=== PATIENT | female | born 1955 | race Caucasian/White ===

== ENCOUNTER 2016-09-23 11:20 | Observation (INO) | payer OTHER ==
[2016-09-23] MEDS ORDERED: ASPIRIN 81 MG CHEW PO STA (11:48)
[2016-09-23] MEDS ORDERED: NITROGLYCERIN-D5W PMX 50 MG in DEXTROSE/WATER 1 250ML.BAG IV STA (11:48)
[2016-09-23] MEDS ORDERED: NITROGLYCERIN SL TABS 0.4 MG TAB SUBLINGUAL STA (11:48)
--- NOTE | 2016-09-23 11:51 | ED ---
General Adult HPI - General Chief complaint: Chest Pain Stated complaint: chest pain Time Seen by Provider: 09/23/16 11:41 Source: patient, RN notes reviewed Mode of arrival: ambulatory Limitations: no limitations - History of Present Illness Initial comments: Patient is a pleasant 61-year-old female presenting to the emergency department chest discomfort. Onset was yesterday. Discomfort has been steady since that time. Discomfort is currently rated 9/10. Patient has a difficult time describing the type of discomfort. There is radiation to the neck and back. Patient has had similar symptoms a proximal he 4 times previously associated with blockages and stent placement. Patient does have some mild associated dyspnea. No nausea or diaphoresis. Patient did take 2 nitroglycerin this morning at home with transient improvement. - Related Data Home Medications Medication Instructions Recorded Confirmed Fluticasone Propionate [Flonase] 1 spray EA NOSTRIL DAILY PRN 12/25/13 09/23/16 Metoprolol Tartrate [Lopressor] 75 mg PO BID 12/25/13 09/23/16 Oxybutynin Chloride [Ditropan] 5 mg PO BID 12/25/13 09/23/16 Gabapentin [Neurontin] 100 mg PO TID 09/08/15 09/23/16 Omeprazole [PriLOSEC] 20 mg PO DAILY 09/08/15 09/23/16 Ibuprofen [Motrin] 800 mg PO Q6H PRN 03/26/16 09/23/16 Multivitamin/Iron/Folic Acid 1 tab PO DAILY 03/26/16 09/23/16 [Centrum Complete Multivit Tab] Pravastatin Sodium [Pravachol] 40 mg PO SUWEFR 03/26/16 09/23/16 tiZANidine HCL 4 mg PO TID PRN 03/26/16 09/23/16 Desvenlafaxine Succinate [Pristiq] 100 mg PO HS 04/01/16 09/23/16 Losartan Potassium 50 mg PO DAILY 04/01/16 09/23/16 Previous Rx's Medication Instructions Recorded Isosorbide Mononitrate ER [Imdur] 30 mg PO DAILY #30 tab.er.24h 09/11/15 Nitroglycerin Sl Tabs [Nitrostat] 0.4 mg SUBLINGUAL Q5M PRN #25 tab 09/11/15 Furosemide [Lasix] 20 mg PO DAILY #10 tab 03/27/16 Aspirin 81 mg PO BID chew 04/01/16 Allergies Allergy/AdvReac Type Severity Reaction Status Date / Time clopidogrel bisulfate Allergy Rash/Hives Verified 09/23/16 12:08 [From Plavix] atorvastatin calcium AdvReac Severe Verified 09/23/16 12:08 [From Lipitor] muscle pain simvastatin [From Zocor] AdvReac Severe Verified 09/23/16 12:08 muscle pain Review of Systems ROS Statement: Those systems with pertinent positive or pertinent negative responses have been documented in the HPI. ROS Other: All systems not noted in ROS Statement are negative. Constitutional: Denies: fever Eyes: Denies: eye pain ENT: Denies: ear pain Respiratory: Reports: dyspnea. Denies: cough Cardiovascular: Reports: chest pain Endocrine: Denies: fatigue Gastrointestinal: Denies: abdominal pain Genitourinary: Denies: dysuria Musculoskeletal: Reports: back pain Skin: Denies: rash Neurological: Denies: weakness Past Medical History Past Medical History: Coronary Artery Disease (CAD), Heart Failure, COPD, Hyperlipidemia, Hypertension, Myocardial Infarction (MD), Osteoarthritis (OA), Rheumatoid Arthritis (RA) Additional Past Medical History / Comment(s): SEE DR LARIOS'S HISTORY AND PHYSICAL Last Myocardial Infarction Date:: Jul 25 2000 History of Any Multi-Drug Resistant Organisms: None Reported Past Surgical History: AICD, Section, Cholecystectomy, Coronary Bypass/ CABG, Heart Catheterization With Stent Additional Past Surgical History / Comment(s): Multiple stents, carpal tunnel, D &C Past Anesthesia/Blood Transfusion Reactions: No Reported Reaction Date of Last Stent Placement:: UNKNOWN DATE Type of Cardiac Device: AICD Device Placement Date:: 05/2014 Past Psychological History: Anxiety, Depression Smoking Status: Former smoker Past Alcohol Use History: Rare Past Drug Use History: None Reported - Past Family History Mother Family Medical History: Hypertension, Myocardial Infarction (MD) Father Family Medical History: Coronary Artery Disease (CAD), Hypertension, Myocardial Infarction (MD) General Exam Limitations: no limitations General appearance: alert, in no apparent distress Head exam: Present: atraumatic Eye exam: Present: normal appearance, PERRL ENT exam: Present: normal oropharynx Neck exam: Present: normal inspection Respiratory exam: Present: normal lung sounds bilaterally. Absent: chest wall tenderness Cardiovascular Exam: Present: regular rate, normal rhythm Expanded Peripheral pulses: 2+: Radial (R), Radial (L), Posterior Tibialis (R), Posterior Tibialis (L) GI/Abdominal exam: Present: soft. Absent: tenderness Extremities exam: Present: normal inspection. Absent: pedal edema, calf tenderness Back exam: Present: normal inspection Neurological exam: Present: alert Psychiatric exam: Present: normal affect, normal mood Skin exam: Absent: rash Course Vital Signs 09/23/16 09/23/16 11:22 12:18 Pulse Rate 59 L 50 L Respiratory 20 Rate Blood Pressure 144/70 132/74 O2 Sat by Pulse 96 96 Oximetry EKG Findings - EKG Comments: EKG Findings:: Sinus bradycardia at 56. Normal intervals. Left axis. Septal Q waves. No acute ST change. Medical Decision Making - Medical Decision Making Patient reevaluated and resting comfortably in bed. Patient symptoms have improved with nitroglycerin. Patient and family updated on results and plan. Case was discussed in detail with Dr. Napier, who will admit for Dr. Garrett dowling. Admission orders written. Cardiac to consult placed. IV heparin started. - Lab Data Result diagrams: 09/23/16 11:36 09/23/16 11:36 Lab Results 09/23/16 09/23/16 09/23/16 Range/Units 11:36 11:36 11:36 WBC 11.1 H (3.8-10.6) k/uL RBC 5.01 (3.80-5.40) m/uL Hgb 14.8 (11.4-16.0) gm/dL Hct 43.4 (34.0-46.0) % MCV 86.6 (80.0-100.0) fL MCH 29.6 (25.0-35.0) pg MCHC 34.1 (31.0-37.0) g/dL RDW 14.5 (11.5-15.5) % Plt Count 178 (150-450) k/uL Neutrophils % 57 % Lymphocytes % 30 % Monocytes % 6 % Eosinophils % 2 % Basophils % 2 % Neutrophils # 6.4 (1.3-7.7) k/uL Lymphocytes # 3.3 (1.0-4.8) k/uL Monocytes # 0.7 (0-1.0) k/uL Eosinophils # 0.2 (0-0.7) k/uL Basophils # 0.2 (0-0.2) k/uL PT (9.0-12.0) sec INR (<1.1) APTT (22.0-30.0) sec D-Dimer (<0.60) mg/L FEU Sodium 143 (137-145) mmol/L Potassium 4.6 (3.5-5.1) mmol/L Chloride 106 (98-107) mmol/L Carbon Dioxide 26 (22-30) mmol/L Anion Gap 11 mmol/L BUN 22 H (7-17) mg/dL Creatinine 0.88 (0.52-1.04) mg/dL Est GFR (MDRD) Af Amer >60 (>60 ml/min/1.73 sqM) Est GFR (MDRD) Non-Af >60 (>60 ml/min/1.73 sqM) Glucose 93 (74-99) mg/dL Calcium 10.0 (8.4-10.2) mg/dL Magnesium 1.9 (1.6-2.3) mg/dL Total Bilirubin 0.7 (0.2-1.3) mg/dL AST 21 (14-36) U/L ALT 38 (9-52) U/L Alkaline Phosphatase 109 (38-126) U/L Total Creatine Kinase 71 (30-135) U/L CK-MB (CK-2) 1.0 (0.0-2.4) ng/mL CK-MB (CK-2) Rel Index 1.4 Troponin I <0.012 (0.000-0.034) ng/mL Total Protein 7.9 (6.3-8.2) g/dL Albumin 4.6 (3.5-5.0) g/dL 09/23/16 Range/Units 11:36 WBC (3.8-10.6) k/uL RBC (3.80-5.40) m/uL Hgb (11.4-16.0) gm/dL Hct (34.0-46.0) % MCV (80.0-100.0) fL MCH (25.0-35.0) pg MCHC (31.0-37.0) g/dL RDW (11.5-15.5) % Plt Count (150-450) k/uL Neutrophils % % Lymphocytes % % Monocytes % % Eosinophils % % Basophils % % Neutrophils # (1.3-7.7) k/uL Lymphocytes # (1.0-4.8) k/uL Monocytes # (0-1.0) k/uL Eosinophils # (0-0.7) k/uL Basophils # (0-0.2) k/uL PT 10.1 (9.0-12.0) sec INR 1.0 (<1.1) APTT 22.5 (22.0-30.0) sec D-Dimer 0.44 (<0.60) mg/L FEU Sodium (137-145) mmol/L Potassium (3.5-5.1) mmol/L Chloride (98-107) mmol/L Carbon Dioxide (22-30) mmol/L Anion Gap mmol/L BUN (7-17) mg/dL Creatinine (0.52-1.04) mg/dL Est GFR (MDRD) Af Amer (>60 ml/min/1.73 sqM) Est GFR (MDRD) Non-Af (>60 ml/min/1.73 sqM) Glucose (74-99) mg/dL Calcium (8.4-10.2) mg/dL Magnesium (1.6-2.3) mg/dL Total Bilirubin (0.2-1.3) mg/dL AST (14-36) U/L ALT (9-52) U/L Alkaline Phosphatase (38-126) U/L Total Creatine Kinase (30-135) U/L CK-MB (CK-2) (0.0-2.4) ng/mL CK-MB (CK-2) Rel Index Troponin I (0.000-0.034) ng/mL Total Protein (6.3-8.2) g/dL Albumin (3.5-5.0) g/dL - Radiology Data Radiology results: image reviewed (Chest x-ray shows cardiomegaly without acute process.) Critical Care Time Critical Care Time: Yes Total Critical Care Time: 31 Disposition Clinical Impression: Unstable angina pectoris Disposition: [facility] Time of Disposition: 14:04
[2016-09-23 12:14] LABS: Basophils # (A) 0.2 k/uL (0-0.2); Basophils % (A) 2 %; CH 29.8; CHCM 34.6; Eosinophils # (A) 0.2 k/uL (0-0.7); Eosinophils % (A) 2 %; HCT 43.4 % (34.0-46.0); HDW 2.98; HGB 14.8 gm/dL (11.4-16.0); Luc # (Auto) 0.37; Luc % (Auto) 3; Lymphocytes # (A) 3.3 k/uL (1.0-4.8); Lymphocytes % (A) 30 %; MCH 29.6 pg (25.0-35.0); MCHC 34.1 g/dL (31.0-37.0); MCV 86.6 fL (80.0-100.0); Mean Platelet Volume 9.2; Monocytes # (A) 0.7 k/uL (0-1.0); Monocytes % (A) 6 %; Neutrophils # (A) 6.4 k/uL (1.3-7.7); Neutrophils % (A) 57 %; RBC 5.01 m/uL (3.80-5.40); RDW 14.5 % (11.5-15.5); WBC 11.1 k/uL (3.8-10.6); WBC (Perox) 11.17
[2016-09-23 12:23] LABS: Prothrombin Time 10.1 sec (9.0-12.0)
[2016-09-23 12:30] LABS: ALT 38 U/L (9-52); AST 21 U/L (14-36); Alkaline Phosphatase 109 U/L (38-126); Anion Gap 11 mmol/L; Blood Urea Nitrogen 22 mg/dL (7-17); Carbon Dioxide 26 mmol/L (22-30); Chloride 106 mmol/L (98-107); Glucose 93 mg/dL (74-99); Magnesium 1.9 mg/dL (1.6-2.3); Non-African American GFR(MDRD) >60 (>60 ml/min/1.73 sqM); Potassium 4.6 mmol/L (3.5-5.1); Sodium 143 mmol/L (137-145); Total Bilirubin 0.7 mg/dL (0.2-1.3); Total Protein 7.9 g/dL (6.3-8.2)
[2016-09-23 12:33] LABS: Creatine Kinase 71 U/L (30-135)
[2016-09-23 12:36] LABS: Partial Thromboplastin Time 22.5 sec (22.0-30.0)
[2016-09-23 12:46] LABS: Troponin I <0.012 ng/mL (0.000-0.034)
--- NOTE | 2016-09-23 12:59 | XR ---
EXAMINATION TYPE: XR chest 1V portable DATE OF EXAM: 09/23/2016 12:36 PM COMPARISON: Prior chest x-ray March 31, 2016. HISTORY: Chest pain into left arm with shortness of breath today. TECHNIQUE: Single frontal view of the chest is obtained. FINDINGS: Post CABG changes with eccentric clips and sternal wires is redemonstrated. There is no foc al air space opacity, pleural effusion, or pneumothorax seen. The cardiac silhouette size remains en larged with dual lead pacemaker/AICD. The osseous structures are intact. IMPRESSION: Cardiomegaly without acute pulmonary process.
[2016-09-23] MEDS ORDERED: HEPARIN SODIUM,PORCINE 5,000 UNIT/ML 1 ML VIAL IV ONE (14:05)
[2016-09-23] MEDS ORDERED: HEPARIN SODIUM,PORCINE 5,000 UNIT/ML 1 ML VIAL IV PRN (14:05)
[2016-09-23] MEDS ORDERED: HEPARIN SODIUM,PORCINE/D5W PMX 25,000 UNIT in DEXTROSE/WATER 1 500ML.BAG IV SCH (14:15)
[2016-09-23] MEDS: HYDROcodone/APAP 5-325MG 1 EACH TAB PO PRN ×2 (16:52→21:58)
[2016-09-23] MEDS ORDERED: IBUPROFEN 800 MG TAB PO PRN (17:27)
[2016-09-23] MEDS ORDERED: FLUTICASONE 50MCG/SPRAY NASAL 16GM EA NOSTRIL PRN (17:27)
[2016-09-23] MEDS ORDERED: tiZANidine 4 MG TAB PO PRN (17:27)
[2016-09-23 18:49] LABS: Creatine Kinase 58 U/L (30-135)
[2016-09-23 19:02] LABS: Creatine Kinase MB 0.7 ng/mL (0.0-2.4); Troponin I <0.012 ng/mL (0.000-0.034)
[2016-09-23] MEDS ORDERED: ALPRAZolam 0.25 MG TAB PO PRN (21:00)
[2016-09-23] MEDS ORDERED: TEMAZEPAM 15 MG CAP PO PRN (21:00)
[2016-09-23] MEDS: ASPIRIN 81 MG CHEW PO SCH (21:48)
[2016-09-23] MEDS: DESVENLAFAXINE SUCCINATE 50 MG TAB.ER.24H PO SCH (21:49)
[2016-09-23] MEDS: METOPROLOL TARTRATE 50 MG TAB PO SCH (21:49)
[2016-09-23] MEDS: OXYBUTYNIN CHLORIDE 5 MG TAB PO SCH (21:50)
[2016-09-23] MEDS: GABAPENTIN 100 MG CAP PO SCH (21:50)
[2016-09-23] MEDS ORDERED: HYDROmorphone 1 MG/ML 1 ML SYRINGE IVP STA (23:03)
[2016-09-24 01:14] LABS: Creatine Kinase 51 U/L (30-135)
[2016-09-24 01:29] LABS: Creatine Kinase MB 0.7 ng/mL (0.0-2.4); Troponin I <0.012 ng/mL (0.000-0.034)
[2016-09-24 06:16] LABS: Basophils # (A) 0.2 k/uL (0-0.2); Basophils % (A) 3 %; CH 29.4; CHCM 33.1; Eosinophils # (A) 0.3 k/uL (0-0.7); Eosinophils % (A) 3 %; HCT 42.3 % (34.0-46.0); HDW 2.87; HGB 13.9 gm/dL (11.4-16.0); Luc # (Auto) 0.27; Luc % (Auto) 3; Lymphocytes # (A) 2.8 k/uL (1.0-4.8); Lymphocytes % (A) 34 %; MCH 29.4 pg (25.0-35.0); MCHC 32.8 g/dL (31.0-37.0); MCV 89.5 fL (80.0-100.0); Mean Platelet Volume 9.1; Monocytes # (A) 0.4 k/uL (0-1.0); Monocytes % (A) 5 %; Neutrophils # (A) 4.3 k/uL (1.3-7.7); Neutrophils % (A) 52 %; RBC 4.73 m/uL (3.80-5.40); RDW 14.6 % (11.5-15.5); WBC 8.2 k/uL (3.8-10.6); WBC (Perox) 8.28
[2016-09-24 06:39] LABS: Anion Gap 10 mmol/L; Blood Urea Nitrogen 21 mg/dL (7-17); Calcium 9.5 mg/dL (8.4-10.2); Carbon Dioxide 25 mmol/L (22-30); Chloride 106 mmol/L (98-107); Cholesterol 233 mg/dL (<200); Glucose 110 mg/dL (74-99); HDL Cholesterol 60 mg/dL (40-60); Non-African American GFR(MDRD) 57 (>60 ml/min/1.73 sqM); Potassium 4.3 mmol/L (3.5-5.1); Sodium 141 mmol/L (137-145); Triglycerides 248 mg/dL (<150)
[2016-09-24] MEDS: PANTOPRAZOLE 40 MG TABLET PO SCH (07:04)
[2016-09-24] MEDS ORDERED: ALPRAZolam 0.25 MG TAB PO PRN (07:56)
[2016-09-24] MEDS ORDERED: ALPRAZolam 0.5 MG TAB PO PRN (07:56)
[2016-09-24] MEDS ORDERED: NITROGLYCERIN SL TABS 0.4 MG TAB SUBLINGUAL PRN (07:56)
[2016-09-24] MEDS ORDERED: ASPIRIN 325 MG TAB PO STA (07:56)
[2016-09-24] MEDS ORDERED: SODIUM CHLORIDE 0.9% 1,000 ML in EMPTY BAG 1 BAG IV ONE (07:56)
[2016-09-24] MEDS ORDERED: ASPIRIN 81 MG CHEW PO STA (08:06)
--- NOTE | 2016-09-24 08:27 | CONS ---
DATE OF CONSULTATION: CHIEF COMPLAINT: Chest pain, Dodie is a 61-year-old lady with history of coronary artery disease, status post CABG, status post occluded graft and prior angioplasty of the [place] circumflex coronary artery unsuccessfully and angioplasty with stent placement of right coronary artery almost a year ago. She comes in complaining of chest pain that she describes as a chest pressure that radiates to her back that started on Friday, gradually got worse yesterday and hence, she came in. It is moderate to severe intensity pain, came on at rest, was associated with some diaphoresis. It is very similar to the episodes of chest pain that she had in the past. Since admission she had been treated with nitrates, heparin, aspirin with improvement in her symptoms. Three sets of cardiac enzymes are negative. EKG does not reveal acute ischemic changes. Past medical history is significant for coronary artery disease, status post CABG, hypertension, dyslipidemia. Current medications include Lopressor 75 b.i.d. losartan 50 mg q. daily, Imdur 30 q. daily, Neurontin, Motrin, Lasix, Flonase, aspirin, Pravachol, Ditropan and Pristiq. The patient is allergic to PLAVIX, LIPITOR and ZOCOR. Family history is negative for premature coronary artery disease. Social history denies smoking, EtOH use or drug abuse. REVIEW OF SYSTEMS: HEENT: Unremarkable. CARDIAC: As described above. RESPIRATORY: Negative. GI: Negative. GENITOURINARY: Negative. ALLERGY/IMMUNOLOGY: Negative. MUSCULOSKELETAL: Negative. ENDOCRINE: Negative. DERMATOLOGY: Negative. CONSTITUTIONAL: Negative. ONCOLOGICAL: Negative. The rest of the system review is not relevant. On exam, she is comfortable at rest. Afebrile. Vital signs are stable. There is no jugular venous distention. Carotid upstroke is normal. There is no bruit. Chest exam reveals good air entry bilaterally. Heart exam reveals first and second heart sounds. No gallop. No murmur, no rub. Abdomen is soft, nontender. Exam of extremities did not reveal edema. Peripheral pulses are felt. Labs show that the potassium is 4.3. Creatinine is one. Hemoglobin is normal at 13.9. Platelet count is 151. D-dimer is 0.44. Four sets of tropes are negative. LDL cholesterol is elevated at 123. ASSESSMENT: 1. Unstable angina in a patient with known coronary artery disease, status post coronary artery bypass graft. 2. Ischemic cardiomyopathy, status post AICD. 3. Hypertension. PLAN: I advised the patient to undergo cardiac catheterization to evaluate her coronary anatomy. The patient had multiple angioplasties of right coronary artery, the most recent was in September 2015. LAD was previously stented and the stent was patent. Circumflex coronary artery has chronic 95% lesion that we could not ( ) stent back in 2013. The patient understands risks, benefits, and alternatives.
[2016-09-24] MEDS: FUROSEMIDE 20 MG TAB PO SCH (08:29)
[2016-09-24] MEDS: METOPROLOL TARTRATE 50 MG TAB PO SCH ×2 (08:33→21:01)
[2016-09-24] MEDS: GABAPENTIN 100 MG CAP PO SCH ×3 (08:34→21:01)
[2016-09-24] MEDS: LOSARTAN 50 MG TAB PO SCH (08:34)
[2016-09-24] MEDS: OXYBUTYNIN CHLORIDE 5 MG TAB PO SCH ×2 (08:34→21:02)
[2016-09-24] MEDS: HYDROcodone/APAP 5-325MG 1 EACH TAB PO PRN ×3 (08:40→21:03)
[2016-09-24] MEDS ORDERED: ASPIRIN 325 MG TAB PO SCH (09:00)
[2016-09-24] MEDS ORDERED: ISOSORBIDE MONONITRATE ER 30 MG TAB.ER.24H PO SCH (09:00)
[2016-09-24] MEDS ORDERED: MIDAZOLAM 2 MG/2 ML VIAL ONE (10:15)
[2016-09-24] MEDS ORDERED: LIDOCAINE 2% INJ 20 MG/ML (20 ML MDV) ONE (10:15)
[2016-09-24] MEDS ORDERED: MIDAZOLAM 2 MG/2 ML VIAL IVP ONE (10:25)
[2016-09-24] MEDS ORDERED: LIDOCAINE 2% INJ 20 MG/ML SQ ONE (10:29)
[2016-09-24] MEDS ORDERED: SODIUM CHLORIDE 0.9% 1,000 ML IV ONE (10:42)
[2016-09-24] MEDS ORDERED: IOHEXOL 350 MG/ML 100 ML BOTTLE INJ ONE (10:44)
[2016-09-24] MEDS ORDERED: RX INFO: IV CONTRAST WAS GIVEN 1 EACH MISC MISCELLANE PRN (10:49)
--- NOTE | 2016-09-24 11:20 | CC ---
INDICATION: Unstable angina. PROCEDURE NOTE: After obtaining informed consent, left heart catheterization and coronary angiogram were performed via the right femoral artery using standard Cris catheters. Patient tolerated the procedure well without any obvious immediate complications. A femoral angiogram was performed and Angio-Seal was deployed for hemostasis. The patient has known multivessel coronary artery disease and had 2-vessel bypass surgery. Her bypass grafts have closed down many years ago and she has had multiple angioplasties of LAD, circ and right coronary artery. Most recently a year ago, she had angioplasty of the proximal right coronary artery. She has a chronic 95% stenosis that we could not stent in the past. LAD had been stented and appeared patent a year ago. FINDINGS: 1. Hemodynamics: Left ventricular end-diastolic pressure is 12 to 14 mm. There is no significant gradient across the aortic valve. 2. Left ventriculogram: Left ventriculogram was not performed. 3. Angiographic data: a. Left main coronary artery: Left main coronary artery is a short vessel that is free of stenosis, appears calcified, divides into left anterior descending coronary artery and circumflex coronary artery. Circumflex coronary artery has a focal 95% stenosis, which we could not wire or angioplasty in the past. LAD had been stented in the proximal to midportion and the stent appears patent. Right coronary artery is a large dominant vessel that was stented in the proximal to midportion and then in the distal part. Right in the mid RCA, there is a focal area of stenosis, probably that was the site where the venous graft was attached, and that appears the same as it did at the end of the procedure last time. The stents in the proximal to mid and in the distal RCA appear patent. PDA and PLV vessels are normal. CONCLUSIONS: 1. [place] 3-vessel coronary artery disease, occluded grafts based on a prior cardiac catheterization data. 2. Patent stents within the left anterior descending artery and right coronary artery, chronic severe occlusion of the proximal circumflex coronary artery that we could not stent in the past. PLAN: Patient will be treated with optimal medical therapy.
--- NOTE | 2016-09-24 12:21 | HP ---
DATE OF ADMISSION: CHIEF COMPLAINT: Chest pain. HISTORY OF PRESENT ILLNESS: This 61-year-old woman with a past medical history of coronary artery disease, history of CHF, COPD, GERD, hypertension, hyperlipidemia, myocardial infarction, rheumatoid arthritis, sleep apnea, history of AICD, history of CAD, CABG, stent being followed by Dr. Guthrie in the outpatient setting was complaining of chest pain, which was on going for the last 2 days. The onset of the pain was yesterday and the patient initially had a back pain and subsequently radiated to the front of the chest and the pain was also radiating to the neck and back and left arm also. The patient had multiple episodes of chest pain previously with pacemaker and stent placements also. The patient also had history of TIA also. Because of multiple complex medical issues, patient came to [facility] and admitted for further evaluation and treatment. There is no history of any fever, rigors or chills. No history of headache, loss of consciousness or seizures. PAST MEDICAL HISTORY: History of CAD, CABG, stent, history of COPD, GERD, hyperlipidemia, hypertension, myocardial infarction , rheumatoid arthritis, sleep apnea, murmur with AICD, history of CAD, CABG, anxiety depression not otherwise specified. Medications prior to admission include home mediations are: 1. Pristiq 100 mg p.o. q.h.s. 2. Tizanidine 4 mg t.i.d. p.r.n. 3. Pravachol 40 mg on Friday, Friday, Friday. 4. Ditropan 5 mg p.o. b.i.d. 5. Prilosec 20 mg daily. 6. Nitrostat 0.4 sublingual p.r.n. 7. Multivitamins 1 p.o. daily. 8. Lopressor 75 mg p.o. b.i.d. 9. Losartan 50 mg p.o. daily. 10. Imdur 30 mg p.o. daily. 11. Motrin 800 mg q.6 p.r.n. 12. Neurontin 100 mg p.o. t.i.d. 13. Lasix 20 mg p.o. daily. 14. Flonase one spray daily p.r.n. 15. Aspirin 81 mg p.o. b.i.d. Allergies are PLAVIX, LIPITOR, ZOCOR. FAMILY HISTORY: History of CAD, hypertension, myocardial infarction . SOCIAL HISTORY: Previous history of smoking. Occasional alcohol intake. REVIEW OF SYSTEMS: ENT: No diminished hearing. No diminished vision. CARDIOVASCULAR SYSTEM: As mentioned earlier. RESPIRATORY: As mentioned earlier. GI: No nausea. : No dysuria. NERVOUS SYSTEM: No numbness or weakness. ALLERGY/IMMUNOLOGY: No history of asthma or hayfever. MUSCULOSKELETAL: As mentioned earlier. HEMATOLOGY/ONCOLOGY: No history of anemia. ENDOCRINE: As mentioned earlier. CONSTITUTIONAL: As mentioned earlier. DERMATOLOGY: Negative. RHEUMATOLOGY: As mentioned earlier. PSYCHIATRY: As mentioned earlier. PHYSICAL EXAMINATION: The patient is alert and oriented x3. Pulse is 61, blood pressure 127/67, respirations 16, temperature 97.8, pulse ox 94% on room air. HEENT: Conjunctivae normal. Oral mucosa moist. NECK: No jugular venous distention. No carotid bruit. No lymph node enlargement. CARDIOVASCULAR: S1 and S2, muffled. No S3, no S4. RESPIRATORY: Breath sounds diminished at the bases. No rhonchi, no crackles. ABDOMEN: Soft, obese, nontender. No mass palpable. LEGS: No edema, no swelling. NERVOUS SYSTEM: Higher function as mentioned. Moves all 4 limbs. No focal motor or sensory deficits. LYMPHATICS: No lymphadenopathy of neck, axillae or groin. SKIN: No ulcers, rashes or bleeding. LABS: WBC 11.1. BUN is 22. Otherwise, chest x-ray shows cardiomegaly without any acute pulmonary process. EKG personally reviewed showed sinus bradycardia and ST-T changes and old septal infarct. ASSESSMENT: 1. Chest pain, possible unstable angina. 2. Increased WBC. 3. Rule out acute coronary syndrome. 4. History of coronary artery disease, coronary artery bypass grafting and stent. 5. History of congestive heart failure. 6. History of chronic obstructive pulmonary disease. 7. Gastroesophageal reflux disease. 8. Hypertension, essential. 9. Hyperlipidemia. 10. History of myocardial infarction. 11. History of degenerative joint disease. 12. History of rheumatoid arthritis. 13. History of sleep apnea. 14. History of back pain, degenerative joint disease. 15. History of automatic implantable cardioverter defibrillator. 16. History of multiple cardiac stents. 17. Anxiety, depression, not otherwise specified. 18. Remote history nicotine dependence. 19. FULL CODE. 20. Obesity with body mass index of 43.1. RECOMMENDATIONS AND DISCUSSION: This 61-year-old woman who presented with multiple complex medical issues, we will monitor the patient closely, rule out myocardial infarction. Cardiology consultation. Heparin drip. Otherwise beta blockers, Ecotrin. Resume the rest of the home medications. Repeat labs. Monitor PTT closely. N.p.o. past midnight until seen by Cardiology. Guarded prognosis because of multiple complex medical issues. Further recommendations to follow. A copy of dictation forwarded to Dr. Guthrie who is the primary physician. I will also check a UA with micro as well.
[2016-09-24] MEDS: MULTIVITAMINS, THERA 1 EACH TAB PO SCH (16:20)
[2016-09-24] MEDS: RANOLAZINE 500 MG TAB.ER.12H PO SCH ×2 (16:21→21:01)
--- NOTE | 2016-09-24 17:04 | PN ---
DATE OF SERVICE: 09/24/2016 PRESENTING COMPLAINT: Chest pain. INTERVAL HISTORY: This is a patient admitted with chest pain, underwent a cardiac catheterization by Dr. Damari Doty and found to have diffuse disease. This is ( ) to go with cardiac catheterization. Postprocedure patient is lying in bed tired-appearing. Review of systems done for constitutional, cardiovascular, GI, pulmonary; relevant findings as above. Current medications are reviewed. On examination, temperature 97.1, pulse 63, respiratory rate 16, blood pressure 122/66, pulse ox 93% on room air. GENERAL APPEARANCE: Lying in bed, flat, not in distress. EYES: Pupils equal. Conjunctivae normal. NECK: Short, thick, unable to assess JVD. RESPIRATORY: Effort normal. LUNGS: Distant breath sounds. CARDIOVASCULAR: First and second sounds normal. No edema. ABDOMEN: Soft, nontender. Liver and spleen not palpable. Psychiatric: Alert and oriented x3. Mood and affect normal. INVESTIGATIONS: White count 8.2, hemoglobin 13.9. Potassium 4.3. LDL 123. ASSESSMENT: 1. Coronary artery disease diffuse per cardiac catheterization for medical management with presentation of unstable angina. 2. Gastroesophageal reflux disease. 3. Hyperlipidemia. 4. Essential hypertension. 5. Primary osteoarthritis of multiple joints, bilateral. 6. Obstructive sleep apnea, uses CPAP. 7. Primary osteoarthritis of multiple joints, bilateral. 8. AICD in place. 9. Morbid obesity, body mass index 42.6. 10. Chronic urinary stress incontinence, the patient on Diprivan. 11. Depression, not otherwise specified. PLAN: At the present time, continue with current medication and treatment plan. Care was discussed with the patient. Will DC patient's Motrin given history of coronary artery disease. Follow up with cardiology.
[2016-09-24] MEDS: SODIUM CHLORIDE 0.9% 1,000 ML IV SCH (17:45)
[2016-09-24] MEDS: DESVENLAFAXINE SUCCINATE 50 MG TAB.ER.24H PO SCH (21:01)
[2016-09-24] MEDS: ASPIRIN 81 MG CHEW PO SCH (21:02)
[2016-09-24] MEDS ORDERED: BISACODYL 5 MG TABLET.DR PO PRN (21:16)
[2016-09-24 21:23] VITALS: RESP 18
[2016-09-25] MEDS: SODIUM CHLORIDE 0.9% 1,000 ML IV SCH ×2 (06:20→12:48)
[2016-09-25] MEDS: PANTOPRAZOLE 40 MG TABLET PO SCH (06:20)
[2016-09-25 06:34] LABS: Anion Gap 9 mmol/L; Blood Urea Nitrogen 21 mg/dL (7-17); Calcium 9.8 mg/dL (8.4-10.2); Carbon Dioxide 29 mmol/L (22-30); Chloride 103 mmol/L (98-107); Glucose 99 mg/dL (74-99); Non-African American GFR(MDRD) 56 (>60 ml/min/1.73 sqM); Potassium 4.7 mmol/L (3.5-5.1); Sodium 141 mmol/L (137-145)
[2016-09-25 07:04] LABS: Basophils # (A) 0.1 k/uL (0-0.2); Basophils % (A) 1 %; CH 29.7; Eosinophils # (A) 0.2 k/uL (0-0.7); Eosinophils % (A) 3 %; HCT 41.1 % (34.0-46.0); HDW 2.87; Luc # (Auto) 0.19; Luc % (Auto) 3; Lymphocytes # (A) 1.8 k/uL (1.0-4.8); Lymphocytes % (A) 25 %; MCH 29.9 pg (25.0-35.0); MCHC 34.1 g/dL (31.0-37.0); MCV 87.6 fL (80.0-100.0); Monocytes # (A) 0.4 k/uL (0-1.0); Monocytes % (A) 5 %; Neutrophils # (A) 4.4 k/uL (1.3-7.7); Neutrophils % (A) 63 %; RDW 14.6 % (11.5-15.5); WBC (Perox) 7.11
[2016-09-25] MEDS: GABAPENTIN 100 MG CAP PO SCH (08:50)
[2016-09-25] MEDS: ASPIRIN 81 MG CHEW PO SCH (08:50)
[2016-09-25] MEDS: OXYBUTYNIN CHLORIDE 5 MG TAB PO SCH (08:50)
[2016-09-25] MEDS: METOPROLOL TARTRATE 50 MG TAB PO SCH (08:50)
[2016-09-25] MEDS: LOSARTAN 50 MG TAB PO SCH (08:51)
[2016-09-25] MEDS: RANOLAZINE 500 MG TAB.ER.12H PO SCH (08:51)
[2016-09-25] MEDS: FUROSEMIDE 20 MG TAB PO SCH (08:51)
[2016-09-25] MEDS ORDERED: EZETIMIBE 10 MG TAB PO SCH (09:00)
[2016-09-25 10:39] VITALS: TEMP 97.4
--- NOTE | 2016-09-25 10:48 | P.PN ---
Subjective Principal diagnosis: Chest pain This is a pleasant 61-year-old female with known history of coronary artery disease and prior bypass surgery, hypertension, hyperlipidemia, who presented to the hospital with symptoms of chest discomfort with associated diaphoresis. Troponins negative 3. She underwent a cardiac catheterization yesterday which revealed [place] 3 vessel coronary artery disease with occluded grafts based on prior cardiac catheterization data. Patent stents within the LAD and right coronary artery, with chronic severe occlusion of the proximal circumflex which was not amenable to stenting in the past. Recommendation was to continue maximal medical therapy. Patient was seen and examined this morning , denies any chest pain or difficulty in breathing. Patient does have an ALLERGY to statins, we will start her on Zetia. Lipid panel cholesterol 233, triglycerides 248, LDL 123, HDL 60. At the time of my examination this morning , patient denies any chest pain or difficulty in breathing. Blood pressure 142/ 70 with a heart rate in the 70s. Objective - Vital Signs Vital signs: Vital Signs Temp 97.4 F L 09/25/16 08:00 Pulse 71 09/25/16 08:00 Resp 18 09/25/16 04:00 BP 142/77 09/25/16 08:00 Pulse Ox 94 L 09/25/16 08:00 Intake & Output 09/24/16 09/25/16 09/25/16 18:59 06:59 18:59 Intake Total 280 600 236 Output Total 980 Balance -700 600 236 Weight 119.7 kg 119.9 kg Intake: IV 100 600 0.9NS 75cc/hr 600 Oral 180 236 Output: Urine 980 Other: Voiding Method Toilet Toilet # Voids 2 - Exam PHYSICAL EXAMINATION: HEENT: Head is atraumatic, normocephalic. Pupils equal, round. Neck is supple. There is no elevated jugular venous pressure. HEART EXAMINATION: Heart S1, S2 normal. No murmur or gallop heard. CHEST EXAMINATION: Lungs are clear to auscultation and precussion. No chest wall tenderness is noted on palpation or with deep breathing. ABDOMEN: Soft, nontender. Bowel sounds are heard. No organomegaly noted. Right groin soft, no evidence of any hematoma. EXTREMITIES: 2+ peripheral pulses with no evidence of peripheral edema and no calf tenderness noted. NEUROLOGIC patient is awake, alert and oriented -3. . - Labs CBC & Chem 7: 09/25/16 05:26 09/25/16 05:26 Labs: Abnormal Lab Results - Last 24 Hours (Table) 09/25/16 09/25/16 Range/Units 05:26 05:26 Plt Count 130 L (150-450) k/uL BUN 21 H (7-17) mg/dL Assessment and Plan (1) Chest pain Status: Acute (2) CAD (coronary artery disease) Status: Acute (3) S/P cardiac cath Status: Acute (4) HTN (hypertension) Status: Acute (5) Hx of CABG Status: Acute (6) Hyperlipemia Status: Acute Plan: Cardiology's perspective, patient may be able to be discharged home today once cleared by primary doctor. Follow-up appointment will be made with Dr. Doty in the office post discharge. We will start the patient on Zetia 10 mg daily. DNP note has been reviewed, I agree with a documented findings and plan of care. Patient was seen and examined.
[2016-09-25] MEDS: MULTIVITAMINS, THERA 1 EACH TAB PO SCH (12:47)
[2016-09-25 14:19] VITALS: BP 141/85; PULSE 67
[2016-09-25] MEDS ORDERED: PRAVASTATIN SODIUM 40 MG TAB PO SCH (21:00)
--- NOTE | 2016-09-26 11:52 | DS ---
DATE OF ADMISSION: 09/23/2016 DATE OF DISCHARGE: 09/25/2016 FINAL DIAGNOSES: 1. Unstable angina in a patient with known coronary artery disease. 2. Gastroesophageal reflux disease. 3. Hyperlipidemia. 4. Essential hypertension. 5. Primary osteoarthritis of multiple joints, bilateral. 6. Obstructive sleep apnea, uses CPAP. 7. Primary osteoarthritis of multiple joints, bilateral. 8. AICD. 9. Moderate obesity, body mass index of 42.6. 10. Chronic urinary stress incontinence, patient is on medications. 11. Depression, not otherwise specified. HOSPITAL COURSE: This patient with known coronary disease presented with chest pain. Cardiac catheterization showed diffuse disease, seen by Dr. Damari Doty, decided to do medical management. Patient's troponins have been negative. Patient's LDL did come back as 123. On examination, lungs are clear. CARDIOVASCULAR: First and second sounds are normal. Some medications were adjusted. DISCHARGE MEDICATIONS: 1. Flonase one spray each nostril daily p.r.n. 2. Lopressor 75 p.o. b.i.d. 3. Ditropan 5 mg p.o. b.i.d. 4. Neurontin 100 mg p.o. t.i.d. 5. Prilosec 20 mg p.o. daily. 6. Imdur ER 30 mg daily. 7. Nitrostat 0.4 sublingual q.5 p.r.n. 8. Centrum complete multivitamin 1 tablet p.o. daily. 9. Pravachol 40 mg p.o. Friday, Friday, Friday. 10. Tizanidine 4 mg p.o. t.i.d. p.r.n. 11. Lasix 20 mg p.o. daily. 12. Aspirin 81 mg b.i.d. 13. Pristiq 100 mg p.o. q.h.s. 14. Losartan 50 mg p.o. daily. 15. Ranexa 500 mg p.o. q.12. 16. Zetia 10 mg p.o. daily. Follow up with Dr. Guthrie on 09/27/2016; follow up with Dr. Damari Doty on 10/07/2016.
== END 2016-09-25 15:45 | disposition home or self-care (01) ==
LOC: EC 11:20 → INTOOBSV 14:05 → 3OBS 14:05 → UNDOADMOB 14:05 → 6SEL 14:05 → 3OBS 14:19 → 6SEL 16:07
PROVIDERS: ADMIT Hospitalist; ATTEND Hospitalist
DX: I25.110 Atherosclerotic heart disease of native coronary artery with unstable angina pectoris (principal); T82.858A Stenosis of other vascular prosthetic devices, implants and grafts, initial encounter; K21.9 Gastro-esophageal reflux disease without esophagitis; E78.5 Hyperlipidemia, unspecified; I11.0 Hypertensive heart disease with heart failure; I50.9 Heart failure, unspecified; M19.91 Primary osteoarthritis, unspecified site; G47.33 Obstructive sleep apnea (adult) (pediatric); Z99.89 Dependence on other enabling machines and devices; Z95.810 Presence of automatic (implantable) cardiac defibrillator; E66.9 Obesity, unspecified; Z68.41 Body mass index [BMI] 40.0-44.9, adult; N39.3 Stress incontinence (female) (male); F32.9 Major depressive disorder, single episode, unspecified; I25.5 Ischemic cardiomyopathy; I25.2 Old myocardial infarction; Z79.899 Other long term (current) drug therapy; Z88.8 Allergy status to other drugs, medicaments and biological substances; J44.9 Chronic obstructive pulmonary disease, unspecified; M06.9 Rheumatoid arthritis, unspecified; Z95.5 Presence of coronary angioplasty implant and graft; Z95.1 Presence of aortocoronary bypass graft; Z87.891 Personal history of nicotine dependence; F41.9 Anxiety disorder, unspecified; Z82.49 Family history of ischemic heart disease and other diseases of the circulatory system; Z86.73 Personal history of transient ischemic attack (TIA), and cerebral infarction without residual deficits; Z79.82 Long term (current) use of aspirin; D72.829 Elevated white blood cell count, unspecified
CPT/HCPCS: 99291; 96365; 96366 ×3; 96376; 96368; 36415; 93005; 93459; 85379; 80061; 80053; 80048 ×2; 82550 ×2; 82553 ×2; 83735; 84484 ×2; 85025 ×3; 85610; 85730 ×2; 71010; G0378 ×3; C1760; C1894; C1769; J2001; J2250; J1644 ×2; Q9967; J1170; 96375

== ENCOUNTER → 2016-11-28 | Outpatient (CLI) | payer OTHER ==
--- NOTE | 2016-11-28 11:48 | PN ---
DATE OF SERVICE: 11/28/2016 A 61-year-old lady who has been followed in the sleep center for treatment of extremely severe obstructive sleep apnea/hypopnea syndrome. Patient continues successfully using her BiPAP equipment. I checked her BiPAP unit today. BiPAP pressure is 21/17 cm of water. Patient using it 21 over 30 nights for more than 4 hours. Total usage is 21 out of 30 nights. Leak is borderline 16 L per minute. Apnea-hypopnea index is only 1.7. [place] Sleepiness Scale is 9. MEDICATIONS: Cozaar, Prilosec, Lopressor, Ditropan, Imdur, Pravachol, aspirin, Neurontin, tramadol. PHYSICAL EXAMINATION: During physical exam, the patient in no distress. VITAL SIGNS: BP 117/63, HR 66, RR 16. Height 5 feet 5 inches. Weight 264. BMI 43.9. Temperature 97.4. Oxygen saturation at room air 95%. HEENT: PERRLA, EOMI, Evaluation of the oropharynx showed extremely low position of soft palate. NECK: Supple. No JVD, Thyroid is not palpable. LUNGS: Clear to percussion and to auscultation. Good air exchange. No wheezing or rhonchi. HEART: S1, S2 regular. No murmurs, gallops, or rubs. ABDOMEN: Obese. HOUSING SPECIALIST: Awake, alert, and oriented x3. Cranial nerves 2 to 7 intact. There is no fasciculation or atrophy noted. No focal deficits observed. IMPRESSION: 1. Extremely severe obstructive sleep apnea/hypopnea syndrome. Apnea-hypopnea index 96.3 on control with BiPAP at the pressure 21/17. Patient demonstrated borderline compliance with treatment benefiting from treatment. 2. Obesity. 3. Hypertension. 4. Coronary artery disease, status post coronary artery bypass graft. 5. Status post permanent pacemaker insertion. 6. History of depression. 7. Acid reflux. 8. Status post defibrillator insertion. 9. Status post cholecystectomy. 10. Possible REM sleep behavioral disorder. The patient has episodes of out of dream movements, but never goes out of bed, never hit anything with her arms. PLAN: 1. Continue treatment with BiPAP every night for the whole night; again discussed with the patient necessity to use treatment 100% of the nights. 2. Losing weight. Patient increased her weight of around 4 pounds. 3. Sleep hygiene with regular time in bed for at least 8 hours. 4. Precautions related to possible REM sleep behavioral disorder and patient moving, but only in the space of bed so possibly she does not need any additional medical treatment with medication at the present time. If situation will become worse in any way, she should return for follow-up visit and I will start her on treatment with medications. 5. No driving if feeling any sleepiness. Thank you very much for allowing me to participate in the management of your patient. Sincerely, Rex Su MD, PhD, FAASM Diplomat of [place] [employer], Sleep Medicine Board by [place] [employer] [place] [employer] Direct Care Provider of [facility] [place]
== END | disposition home or self-care (01) ==
LOC: SLEEP 10:30
PROVIDERS: ATTEND Internal Medicine
DX: G47.33 Obstructive sleep apnea (adult) (pediatric) (principal); Z79.899 Other long term (current) drug therapy; E66.9 Obesity, unspecified; Z68.41 Body mass index [BMI] 40.0-44.9, adult; I10 Essential (primary) hypertension; Z95.5 Presence of coronary angioplasty implant and graft; Z95.0 Presence of cardiac pacemaker; F32.9 Major depressive disorder, single episode, unspecified; K21.9 Gastro-esophageal reflux disease without esophagitis

== ENCOUNTER → 2017-05-12 | Outpatient (CLI) | payer MEDICARE, OTHER ==
--- NOTE | 2017-05-12 09:15 | CT ---
EXAMINATION TYPE: CT CervThoracic spine wo con DATE OF EXAM: 05/12/2017 COMPARISON: CT angiogram of the head and neck dated 04/01/2016 HISTORY: Patient complains of neck pain, upper back pain, osteoarthritis. CT DLP: 3074.7 mGycm Automated exposure control for dose reduction was used. FINDINGS: Contiguous axial CT slices were obtained of the cervical spine and thorax without the utilization of intravenous contrast. Coronal and sagittal reformats were obtained for review. Cervical spine: Cervical spine maintains normal vertebral body heights and alignment. There is straig htening of the usual cervical lordosis present. Multilevel intervertebral disc space narrowing, small disc osteophyte complex, uncovertebral hypertrophy and facet arthropathy are seen. No evidence of fr acture or dislocation of the cervical spine. C2-C3: No significant disc pathology, spinal canal stenosis or neural foraminal narrowing. C3-C4: Uncovertebral hypertrophy, right greater than left results in moderate right neural foraminal narrowing. Facet arthropathy and small posterior disc ossify complex are seen without left neural for aminal narrowing or spinal canal stenosis. C4-C5: Facet arthropathy and uncovertebral hypertrophy are seen as well as disc desiccation, interver tebral disc space narrowing and endplate sclerosis resulting in moderate left neural foraminal narrow ing and mild right neural foraminal narrowing. Mild spinal canal stenosis is also seen. C5-C6: Posterior disc osteophyte complex creates impression upon the ventral thecal sac, right parace ntral and results in mild spinal canal stenosis. Uncovertebral hypertrophy and facet arthropathy resu lt in mild right neural foraminal narrowing. Left neural foramen is patent. C6-C7: Posterior disc osteophyte complex, moderate in size creates mild to moderate spinal canal sten osis. Uncovertebral hypertrophy and facet arthropathy creating moderate bilateral neural foraminal na rrowing. C7-T1: No significant disc pathology, neural foraminal stenosis or spinal canal stenosis. Thoracic spine: There is no evidence of compression deformity at any thoracic vertebral level. No rigoberto dence of fracture or dislocation. No significant spinal canal stenosis or neural foraminal narrowing. Multilevel anterior osteophytes bridge few levels in the thoracic spine. Endplate sclerosis and Schm orl's nodes are seen at multiple levels. Paraseptal emphysematous changes are present of the lung apices. Minimal subsegmental bibasilar depen dent atelectasis is present. Elongated 1.0 cm left lower lobe nodule is present that may represent en dobronchial mucous plugging versus true pulmonary nodule. Thoracic aorta is of normal course and anne rick. IMPRESSION: 1. NO EVIDENCE OF FRACTURE OR MALALIGNMENT OF THE CERVICAL OR THORACIC SPINE. STRAIGHTENING OF THE US UAL CERVICAL LORDOSIS OF THE CERVICAL SPINE MAY RELATE TO MUSCULAR SPASM OR PATIENT POSITIONING. 2. MULTILEVEL DEGENERATIVE DISC DISEASE OF THE CERVICAL AND THORACIC SPINE RESULTING IN MILD SPINAL C ANAL STENOSIS AT C4-C5 AND MILD TO MODERATE SPINAL CANAL STENOSIS AT C6-C7. MULTILEVEL VARIABLE NEURA L FORAMINAL NARROWING DESCRIBED ABOVE. 3. ELONGATED TUBULAR APPEARING NODULE WITHIN THE LEFT LOWER LOBE MEASURING 1 CM THAT MAY REPRESENT EN DOBRONCHIAL MUCOUS PLUGGING OR TRUE PULMONARY NODULE. CT THORAX COULD BE PERFORMED FOR EVALUATION OF THE ENTIRE THORAX. 4. MILD PARASEPTAL EMPHYSEMATOUS CHANGES OF THE LUNG APICES.
== END | disposition home or self-care (01) ==
LOC: RADCTMAIN 08:01
PROVIDERS: ATTEND Psychiatry & Neurology Neurology
DX: M50.33 Other cervical disc degeneration, cervicothoracic region (principal); M48.02 Spinal stenosis, cervical region; M99.71 Connective tissue and disc stenosis of intervertebral foramina of cervical region; Z88.8 Allergy status to other drugs, medicaments and biological substances
CPT/HCPCS: 72125; 72128

== ENCOUNTER → 2017-06-26 | Outpatient (CLI) | payer MEDICARE, OTHER ==
--- NOTE | 2017-06-26 11:57 | CT ---
EXAMINATION TYPE: CT chest w con DATE OF EXAM: 06/26/2017 COMPARISON: CT scan 05/12/2017, 12/28/2013, 11/09/2011. HISTORY: nodule CT DLP: 850 mGycm Automated exposure control for dose reduction was used. CONTRAST: CT scan of the chest is performed with IV Contrast, patient injected with 100 mL of Omnipaque 300. FINDINGS: LUNGS: paraseptal emphysema and apical pleural thickening noted. There is a 2 mm nodule in the right upper lobe laterally image 25. Additional 2 mm nodule image 25 left upper lobe laterally. There are persistent a somewhat elongated nodular density in the left lower lobe measuring 1 cm this appears se parate from the bronchus. Stable from the previous exam. Additional subpleural nodularity stable. No consolidative pneumonia, pleural effusion or pneumothorax MEDIASTINUM: The heart is prominent cardiac leads are noted. Sternotomy wires are seen there is a sma ll hiatal hernia. Coronary artery calcification noted. A sending aorta measures a maximal dimension of approximately 3.7 cm. Shotty adenopathy in the mediastinum and hilum noted. OTHER: Fatty infiltration of the liver noted. Hypertrophic and degenerative change of the spine. Sub centimeter left thyroid nodule noted. IMPRESSION: 1. There is a 1 cm elongated nodule within the left lower lobe stable from the CT scan of the thoraci c spine. Appearance is nonspecific. Does not appear to be related to the bronchus or a mucous plug as suggested by previous CT scan. However, finding is stable dating back to 2011 and therefore likely b enign. 2. Additional 2 mm or less upper lobe pulmonary nodules too small to characterize could be followed t o [address] scan to confirm stability. 3. COPD.
== END | disposition home or self-care (01) ==
LOC: RADCTMAIN 08:33
PROVIDERS: ATTEND Family Medicine
DX: R91.8 Other nonspecific abnormal finding of lung field (principal)
CPT/HCPCS: 71260; Q9967

== ENCOUNTER → 2019-02-02 | Outpatient (CLI) | payer MEDICARE, OTHER ==
--- NOTE | 2019-02-02 14:07 | CT ---
EXAMINATION TYPE: CT lumbar spine wo con DATE OF EXAM: 02/02/2019 COMPARISON: Plain film dated 05/02/2015, CT 05/12/2017 HISTORY: LOWER BACK PAIN CT DLP: 2496.9 mGycm Automated exposure control for dose reduction was used. An unenhanced CT of the lumbar spine was performed. Bone and soft tissue window settings are submitt ed as well as coronal and sagittal reconstructions. FINDINGS: Loss of disc height is present especially at L4-5 and L5-S1, vacuum phenomenon present at L4-5. Minim al anterolisthesis grade 1 L4-5. L1-L2: Broad-based posterior disc bulge causes anterior mass effect on the thecal sac. There is some facet arthropathy change present. No significant foraminal encroachment. Only mild spinal stenosis. L2-L3: There is facet arthropathy present. Broad-based posterior disc bulge causes mild anterior mass effect on the thecal sac, there is mild spinal stenosis. No significant foraminal encroachment on th e left, circumferential extension endplate disc complex encroaches on the right neural foramen. L3-L4: Posterior broad-based disc bulge causes mild anterior mass effect on the thecal sac. There is mild to moderate central canal stenosis. Facet arthropathy with hypertrophy ligamentum flavum is note d. Circumferential extension endplate disc complex results in some mild foraminal encroachment. L4-L5: Broad-based posterior disc bulge causes mild anterior mass effect on the thecal sac. Circumfer ential extension of endplate disc complex results in some foraminal encroachment likely accentuated b y the patient's listhesis. There is facet arthropathy present. On mild central canal stenosis. L5-S1: Posterior broad-based disc bulge causes mild anterior mass effect on the thecal sac. No signif icant central stenosis. Circumferential extension of endplate disc complex causes bilateral foraminal encroachment.. IMPRESSION: Degenerative disc disease, mild spinal stenosis, multilevel foraminal encroachment. No pa raspinal masses are identified. Lumbar segments are intact.
== END | disposition home or self-care (01) ==
LOC: RADCTMAIN 12:51
PROVIDERS: ATTEND Psychiatry & Neurology Neurology
DX: M48.061 Spinal stenosis, lumbar region without neurogenic claudication (principal); M51.36 Other intervertebral disc degeneration, lumbar region
CPT/HCPCS: 72131

== ENCOUNTER 2019-10-23 23:04 | Observation (INO) | payer MEDICARE, OTHER ==
[2019-10-23] MEDS ORDERED: SODIUM CHLORIDE 0.9% 1,000 ML IV STA (23:25)
[2019-10-23 23:56] LABS: Basophils # (A) 0.1 k/uL (0-0.2); Basophils % (A) 1 %; Eosinophils # (A) 0.3 k/uL (0-0.7); Eosinophils % (A) 3 %; HCT 46.2 % (34.0-46.0); HGB 15.8 gm/dL (11.4-16.0); Lymphocytes # (A) 2.7 k/uL (1.0-4.8); Lymphocytes % (A) 32 %; MCH 29.2 pg (25.0-35.0); MCHC 34.1 g/dL (31.0-37.0); MCV 85.6 fL (80.0-100.0); Mean Platelet Volume 9.9; Monocytes # (A) 0.3 k/uL (0-1.0); Monocytes % (A) 4 %; Neutrophils # (A) 4.9 k/uL (1.3-7.7); Neutrophils % (A) 58 %; Platelet Count 159 k/uL (150-450); RDW 13.6 % (11.5-15.5); WBC 8.4 k/uL (3.8-10.6)
--- NOTE | 2019-10-24 00:05 | ED ---
Arrhythmia/Palpitations HPI - General Chief Complaint: Arrhythmia/Palpitations Stated Complaint: Palpitations Time Seen by Provider: 10/23/19 23:23 Source: patient, RN notes reviewed, old records reviewed Mode of arrival: wheelchair Limitations: no limitations - History of Present Illness Initial Comments: This is a 64-year-old female DF today she presents for evaluation of some chest pain palpitations heart beating and left side of her chest and anxiety, some shortness of breath especially with exertion no significant dyspnea. Patient has significant heart history history of pacemaker with defibrillator placed. No fevers. No cough or congestion. No travel history. Patient states symptoms started yesterday progressively worsening also relates increasing fatigue MD Complaint: "heart racing", palpitations, irregular heart beat -: days(s) Context: occurred during rest Arrhythmia History: atrial fibrillation, pacemaker, AICD Associated Symptoms: chest pain, shortness of breath - Related Data Home Medications Medication Instructions Recorded Confirmed Metoprolol Tartrate [Lopressor] 75 mg PO BID 12/25/13 10/22/18 Oxybutynin Chloride [Ditropan] 5 mg PO BID 12/25/13 10/22/18 Desvenlafaxine Succinate [Pristiq] 100 mg PO HS 04/01/16 10/22/18 Losartan Potassium 50 mg PO DAILY 04/01/16 10/22/18 Cholecalciferol [Vitamin D3] 1,000 unit PO DAILY 10/22/18 10/22/18 Ibuprofen [Motrin] 800 mg PO BID PRN 10/22/18 10/22/18 Rosuvastatin Calcium [Crestor] 10 mg PO HS 10/22/18 10/22/18 Previous Rx's Medication Instructions Recorded Isosorbide Mononitrate ER [Imdur] 30 mg PO DAILY #30 tab.er.24h 09/11/15 Aspirin 81 mg PO BID chew 04/01/16 Allergies Allergy/AdvReac Type Severity Reaction Status Date / Time clopidogrel bisulfate Allergy Rash/Hives Verified 10/23/19 23:11 [From Plavix] atorvastatin calcium AdvReac Severe Verified 10/23/19 23:11 [From Lipitor] muscle pain simvastatin [From Zocor] AdvReac Severe Verified 10/23/19 23:11 muscle pain Review of Systems ROS Statement: Those systems with pertinent positive or pertinent negative responses have been documented in the HPI. ROS Other: All systems not noted in ROS Statement are negative. Past Medical History Past Medical History: Atrial Fibrillation, Coronary Artery Disease (CAD), Heart Failure, COPD, Hyperlipidemia, Hypertension, Myocardial Infarction (ID), Osteoarthritis (OA), Rheumatoid Arthritis (RA), Sleep Apnea/CPAP/BIPAP Additional Past Medical History / Comment(s): Heart Murmur, since CABG-L arm larger than right, Back & Cervical pain., Sawyer carpal tunnel syndrome ., C-Pap machine., Hx of colon polyps, Eczema. Last Myocardial Infarction Date:: 1999 History of Any Multi-Drug Resistant Organisms: None Reported Past Surgical History: AICD, Appendectomy, Section, Cholecystectomy, C oronary Bypass/CABG, Heart Catheterization, Heart Catheterization With Stent, Pacemaker Additional Past Surgical History / Comment(s): Multiple cardiac stents-4 of them, 2000 CABG 2 vessel, L carpal tunnel, D&C, colonoscopy. [employer] AICD Past Anesthesia/Blood Transfusion Reactions: Previous Problems w/ Anesthesia, Motion Sickness Additional Past Anesthesia/Blood Transfusion Reaction / Comment(s): WOKE UP DURING PROCEDURE Date of Last Stent Placement:: 2009 Type of Cardiac Device: Permanent Pacemaker, AICD Device Placement Date:: 05/2014 Past Psychological History: Anxiety, Depression Smoking Status: Former smoker Past Alcohol Use History: Rare Past Drug Use History: None Reported - Past Family History Mother Family Medical History: Hypertension, Myocardial Infarction (ID) Additional Family Medical History / Comment(s): Mother of a ID at the age of 63 yrs. Sister(s) Family Medical History: Cancer Additional Family Medical History / Comment(s): Breast Cancer Father Family Medical History: Coronary Artery Disease (CAD), Hypertension, Myocardial Infarction (ID) Additional Family Medical History / Comment(s): Father of a ID at the age of 50 yrs. General Exam Limitations: no limitations General appearance: alert, in no apparent distress, anxious Head exam: Present: atraumatic, normocephalic, normal inspection Eye exam: Present: normal appearance, PERRL, EOMI. Absent: scleral icterus, conjunctival injection, periorbital swelling ENT exam: Present: normal exam, mucous membranes moist Neck exam: Present: normal inspection. Absent: tenderness, meningismus, lymp hadenopathy Respiratory exam: Present: normal lung sounds bilaterally. Absent: respiratory distress, wheezes, rales, rhonchi, stridor Cardiovascular Exam: Present: regular rate, normal rhythm, normal heart sounds. Absent: systolic murmur, diastolic murmur, rubs, gallop, clicks GI/Abdominal exam: Present: soft, normal bowel sounds. Absent: distended, tenderness, guarding, rebound, rigid Extremities exam: Present: normal inspection, full ROM, normal capillary refill. Absent: tenderness, pedal edema, joint swelling, calf tenderness Back exam: Present: normal inspection Neurological exam: Present: alert, oriented X3, CN II-XII intact Psychiatric exam: Present: normal affect, normal mood Skin exam: Present: warm, dry, intact, normal color. Absent: rash Course Vital Signs 10/23/19 23:06 Temperature 97.8 F Pulse Rate 93 Respiratory 18 Rate Blood Pressure 168/124 O2 Sat by Pulse 97 Oximetry - Reevaluation(s) Reevaluation #1: 10/24/19 00:36 Medical records reviewed Reevaluation #2: 10/24/19 00:36 Patient does to left pain - Consultations Consultation #1: Spoke with Dr Napier for Dr. Mcnamara for Dr. Albrecht who agrees for admission EKG Findings - EKG Comments: EKG Findings:: EKG shows sinus rhythm of 92, SD 174, QRS 94, QTc 445 Medical Decision Making - Medical Decision Making 64 female to the ER for evaluation she is a palpitations and chest pain, patient be kept on a cardiac observation with history of heart disease pacer and defibrillator - Lab Data Result diagrams: 10/23/19 23:30 10/23/19 23:30 Lab Results 10/23/19 10/23/19 10/23/19 Range/Units 23:30 23:30 23:30 WBC 8.4 (3.8-10.6) k/uL RBC 5.40 (3.80-5.40) m/uL Hgb 15.8 (11.4-16.0) gm/dL Hct 46.2 H (34.0-46.0) % MCV 85.6 (80.0-100.0) fL MCH 29.2 (25.0-35.0) pg MCHC 34.1 (31.0-37.0) g/dL RDW 13.6 (11.5-15.5) % Plt Count 159 (150-450) k/uL Neutrophils % 58 % Lymphocytes % 32 % Monocytes % 4 % Eosinophils % 3 % Basophils % 1 % Neutrophils # 4.9 (1.3-7.7) k/uL Lymphocytes # 2.7 (1.0-4.8) k/uL Monocytes # 0.3 (0-1.0) k/uL Eosinophils # 0.3 (0-0.7) k/uL Basophils # 0.1 (0-0.2) k/uL PT 10.0 (9.0-12.0) sec INR 1.0 (<1.2) APTT 22.0 (22.0-30.0) sec Sodium 133 L (137-145) mmol/L Potassium 4.2 (3.5-5.1) mmol/L Chloride 98 (98-107) mmol/L Carbon Dioxide 24 (22-30) mmol/L Anion Gap 11 mmol/L BUN 16 (7-17) mg/dL Creatinine 0.87 (0.52-1.04) mg/dL Est GFR (CKD-EPI)AfAm 82 (>60 ml/min/1.73 sqM) Est GFR (CKD-EPI)NonAf 71 (>60 ml/min/1.73 sqM) Glucose 311 H (74-99) mg/dL Calcium 9.8 (8.4-10.2) mg/dL Phosphorus 4.2 (2.5-4.5) mg/dL Magnesium 1.5 L (1.6-2.3) mg/dL Total Bilirubin 0.9 (0.2-1.3) mg/dL AST 27 (14-36) U/L ALT 33 (4-34) U/L Alkaline Phosphatase 126 (38-126) U/L Troponin I (0.000-0.034) ng/mL Total Protein 8.0 (6.3-8.2) g/dL Albumin 4.8 (3.5-5.0) g/dL Urine Color Urine Appearance (Clear) Urine pH (5.0-8.0) Ur Specific Welch (1.001-1.035) Urine Protein (Negative) Urine Glucose (UA) (Negative) Urine Ketones (Negative) Urine Blood (Negative) Urine Nitrite (Negative) Urine Bilirubin (Negative) Urine Urobilinogen (<2.0) mg/dL Ur Leukocyte Esterase (Negative) Urine RBC (0-5) /hpf Urine WBC (0-5) /hpf Ur Squamous Epith Cells (0-4) /hpf Urine Bacteria (None) /hpf Urine Mucus (None) /hpf 10/23/19 10/23/19 Range/Units 23:30 23:40 WBC (3.8-10.6) k/uL RBC (3.80-5.40) m/uL Hgb (11.4-16.0) gm/dL Hct (34.0-46.0) % MCV (80.0-100.0) fL MCH (25.0-35.0) pg MCHC (31.0-37.0) g/dL RDW (11.5-15.5) % Plt Count (150-450) k/uL Neutrophils % % Lymphocytes % % Monocytes % % Eosinophils % % Basophils % % Neutrophils # (1.3-7.7) k/uL Lymphocytes # (1.0-4.8) k/uL Monocytes # (0-1.0) k/uL Eosinophils # (0-0.7) k/uL Basophils # (0-0.2) k/uL PT (9.0-12.0) sec INR (<1.2) APTT (22.0-30.0) sec Sodium (137-145) mmol/L Potassium (3.5-5.1) mmol/L Chloride (98-107) mmol/L Carbon Dioxide (22-30) mmol/L Anion Gap mmol/L BUN (7-17) mg/dL Creatinine (0.52-1.04) mg/dL Est GFR (CKD-EPI)AfAm (>60 ml/min/1.73 sqM) Est GFR (CKD-EPI)NonAf (>60 ml/min/1.73 sqM) Glucose (74-99) mg/dL Calcium (8.4-10.2) mg/dL Phosphorus (2.5-4.5) mg/dL Magnesium (1.6-2.3) mg/dL Total Bilirubin (0.2-1.3) mg/dL AST (14-36) U/L ALT (4-34) U/L Alkaline Phosphatase (38-126) U/L Troponin I <0.012 (0.000-0.034) ng/mL Total Protein (6.3-8.2) g/dL Albumin (3.5-5.0) g/dL Urine Color Light Yellow Urine Appearance Clear (Clear) Urine pH 5.0 (5.0-8.0) Ur Specific Welch 1.006 (1.001-1.035) Urine Protein Trace H (Negative) Urine Glucose (UA) 2+ H (Negative) Urine Ketones Negative (Negative) Urine Blood Negative (Negative) Urine Nitrite Negative (Negative) Urine Bilirubin Negative (Negative) Urine Urobilinogen <2.0 (<2.0) mg/dL Ur Leukocyte Esterase Moderate H (Negative) Urine RBC 2 (0-5) /hpf Urine WBC 18 H (0-5) /hpf Ur Squamous Epith Cells 3 (0-4) /hpf Urine Bacteria Rare H (None) /hpf Urine Mucus Rare H (None) /hpf - Radiology Data Radiology results: report reviewed (Chest x-ray is negative for acute disease), image reviewed Disposition Clinical Impression: Chest pain, CAD (coronary artery disease), Palpitations, Tachycardia Disposition: ADMITTED IP TO THIS HOSP Condition: Fair Is patient prescribed a controlled substance at d/c from ED?: No Referrals: Dena Albrecht DO [Primary Care Provider] - 1-2 days
--- NOTE | 2019-10-24 00:09 | XR ---
EXAMINATION TYPE: XR chest 2V DATE OF EXAM: 10/24/2019 COMPARISON: 09/23/2016 HISTORY: Weakness. TECHNIQUE: FINDINGS: There is no heart failure nor confluent pneumonic infiltrate. Costophrenic angles are clear . There are no hilar masses. There is a left axillary pacemaker. There are sternal wires. Bony thorax is intact. IMPRESSION: No active cardiopulmonary disease. Normal heart. No change.
[2019-10-24 00:13] LABS: Albumin 4.8 g/dL (3.5-5.0); Calcium 9.8 mg/dL (8.4-10.2); Magnesium 1.5 mg/dL (1.6-2.3); Phosphorus 4.2 mg/dL (2.5-4.5); Potassium 4.2 mmol/L (3.5-5.1); Total Bilirubin 0.9 mg/dL (0.2-1.3)
[2019-10-24 00:15] LABS: Appearance,Urine Clear (Clear); Bacteria,Urine Rare /hpf; Bilirubin,Urine Negative (Negative); Blood,Urine Negative (Negative); Color,Urine Light Yellow; Glucose,Urine (UA) 2+ (Negative); Ketones,Urine Negative (Negative); Leukocyte Esterase,Urine Moderate (Negative); Mucus,Urine Rare /hpf; Nitrite,Urine Negative (Negative); Protein,Urine Trace (Negative); RBC,Urine 2 /hpf (0-5); Specific Gravity,Urine 1.006 (1.001-1.035); Squamous Epithelial Cell,Urine 3 /hpf (0-4); Urobilinogen,Urine <2.0 mg/dL (<2.0); WBC,Urine 18 /hpf (0-5)
[2019-10-24] MEDS ORDERED: NITROGLYCERIN SL TABS 0.4 MG TAB SUBLINGUAL PRN (01:16)
[2019-10-24] MEDS ORDERED: ASPIRIN 81 MG PO STA (01:16)
[2019-10-24] MEDS: SODIUM CHLORIDE 0.9% 1,000 ML IV SCH ×2 (01:30→12:05)
[2019-10-24] MEDS: HYDROcodone/APAP 5-325MG 1 EACH TAB PO PRN ×2 (03:07→09:44)
[2019-10-24 03:16] VITALS: TEMP 97.9
[2019-10-24] MEDS ORDERED: ASPIRIN 81 MG PO SCH (09:00)
[2019-10-24] MEDS ORDERED: ISOSORBIDE MONONITRATE ER 30 MG TAB.ER.24H PO SCH (09:00)
[2019-10-24] MEDS ORDERED: LOSARTAN 50 MG TAB PO SCH (09:00)
[2019-10-24] MEDS ORDERED: METOPROLOL TARTRATE 25 MG TAB PO SCH ×2 (09:00)
[2019-10-24 10:07] VITALS: RESP 16
[2019-10-24] MEDS ORDERED: HYDROcodone/APAP 5-325MG 1 EACH TAB PO PRN (10:08)
[2019-10-24] MEDS ORDERED: ALBUTEROL NEBULIZED 2.5 MG/3 ML INHALATION PRN (10:08)
[2019-10-24] MEDS ORDERED: FLUTICASONE 50MCG/SPRAY NASAL 16GM EA NOSTRIL PRN (10:08)
[2019-10-24] MEDS: MAGNESIUM SULFATE-D5W PMX 1 GM in DEXTROSE/WATER 1 100ML.BAG IVPB SCH ×2 (10:36→11:49)
[2019-10-24 10:44] LABS: Glucose,Whole Blood 328 mg/dL (75-99)
[2019-10-24 11:51] VITALS: BP 108/56; PULSE 52
--- NOTE | 2019-10-24 12:05 | P.DS ---
Providers Date of admission: 10/24/19 01:16 Attending physician: Jon Napier Consults: 10/24/19 01:16 Consult Physician Urgent Consulting Provider: Simon Soni Consult Reason/Comments: cp,palpitatiosny Do you want consulting provider notified?: Yes Primary care physician: Dena Albrecht [facility] Course: Refer to my history of present illness for further details Patient Condition at Discharge: Fair Plan - Discharge Summary Discharge Rx Participant: Yes New Discharge Prescriptions: New Isosorbide Mononitrate ER [Imdur] 30 mg PO DAILY #30 tab.er.24h Continue Oxybutynin Chloride [Ditropan] 5 mg PO BID Metoprolol Tartrate [Lopressor] 75 mg PO BID Losartan Potassium 50 mg PO DAILY Aspirin 81 mg PO BID chew Cholecalciferol [Vitamin D3 (25 Mcg = 1000 Iu)] 1,000 unit PO DAILY DULoxetine HCL [Cymbalta] 60 mg PO DAILY Fluticasone Nasal [place] [Flonase Nasal [place]] 2 spr EA NOSTRIL BID PRN PRN Reason: Allergy Symptoms Albuterol Sulfate [Ventolin HFA] 2 puff INHALATION RT-Q6H PRN PRN Reason: Shortness Of Breath ARIPiprazole [Abilify] 2 mg PO DAILY Pantoprazole [Protonix] 40 mg PO DAILY HYDROcodone/APAP 5-325MG [[place] 5-325] 1 tab PO DAILY PRN PRN Reason: pain Gabapentin [Neurontin] 100 mg PO BID Discontinued Isosorbide Mononitrate 20 mg PO DAILY Discharge Medication List Metoprolol Tartrate [Lopressor] 75 mg PO BID 12/25/13 [History] Oxybutynin Chloride [Ditropan] 5 mg PO BID 12/25/13 [History] Aspirin 81 mg PO BID chew 04/01/16 [Rx] Losartan Potassium 50 mg PO DAILY 04/01/16 [History] Cholecalciferol [Vitamin D3 (25 Mcg = 1000 Iu)] 1,000 unit PO DAILY 10/22/18 [History] ARIPiprazole [Abilify] 2 mg PO DAILY 10/24/19 [History] Albuterol Sulfate [Ventolin HFA] 2 puff INHALATION RT-Q6H PRN 10/24/19 [History] DULoxetine HCL [Cymbalta] 60 mg PO DAILY 10/24/19 [History] Fluticasone Nasal [place] [Flonase Nasal [place]] 2 spr EA NOSTRIL BID PRN 10/24/19 [History] Gabapentin [Neurontin] 100 mg PO BID 10/24/19 [History] HYDROcodone/APAP 5-325MG [[place] 5-325] 1 tab PO DAILY PRN 10/24/19 [History] Isosorbide Mononitrate ER [Imdur] 30 mg PO DAILY #30 tab.er.24h 10/24/19 [Rx] Pantoprazole [Protonix] 40 mg PO DAILY 10/24/19 [History] Follow up Appointment(s)/Referral(s): Dena Albrecht DO [Primary Care Provider] - 3 Days Tonny Doty MD [STAFF PHYSICIAN] - 1 Week Discharge Disposition: HOME SELF-CARE
--- NOTE | 2019-10-24 12:05 | P.HPIM ---
History of Present Illness Patient is a pleasant 64-year-old female came in with compensative chest for chest pain she is unable to characterize the pain constant in the left side of the chest has been going on for More than a day. Patient denied any diaphoresis was bit lightheaded denied any nausea vomiting. Patient denied any diarrhea, chest pain is non-radiating nonpleuritic not associated with food, patient had palpitations as well. Although patient EKG showed sinus rhythm with some nonspecific T-wave changes. Patient is supposed to get a stress test as an outpatient patient had a cardiac catheterization and angioplasty about 3 years ago. Patient will be evaluated by cardiology rule out a concurrent syndromes and the cleared for discharge with an outpatient stress test patient will be discharged. Patient is bit hyponatremic. Patient does have history of atrial fibrillation as per the chart but patient is not on anti-correlation at this time. Review of Systems REVIEW OF SYSTEMS: CONSTITUTIONAL: No fever, no malaise, no fatigue. HEENT: No recent visual problems or hearing problems. Denied any sore throat. CARDIOVASCULAR: No orthopnea, PND, no syncope. PULMONARY: No shortness of breath, no cough, no hemoptysis. GASTROINTESTINAL: No diarrhea, no nausea, no vomiting, no abdominal pain. NEUROLOGICAL: No headaches, no weakness, no numbness. HEMATOLOGICAL: Denies any bleeding or petechiae. GENITOURINARY: Denies any burning micturition, frequency, or urgency. MUSCULOSKELETAL/RHEUMATOLOGICAL: Denies any joint pain, swelling, or any muscle pain. ENDOCRINE: Denies any polyuria or polydipsia. The rest of the 14-point review of systems is negative. Past Medical History Past Medical History: Atrial Fibrillation, Coronary Artery Disease (CAD), Heart Failure, COPD, Hyperlipidemia, Hypertension, Myocardial Infarction (LA), Osteoarthritis (OA), Rheumatoid Arthritis (RA), Sleep Apnea/CPAP/BIPAP Additional Past Medical History / Comment(s): Heart Murmur, since CABG-L arm larger than right, Back & Cervical pain., [place]yer carpal tunnel syndrome ., C-Pap machine., Hx of colon polyps, Eczema. Last Myocardial Infarction Date:: 1999 History of Any Multi-Drug Resistant Organisms: None Reported Past Surgical History: AICD, Appendectomy, Section, Cholecystectomy, Coronary Bypass/CABG, Heart Catheterization, Heart Catheterization With Stent, Pacemaker Additional Past Surgical History / Comment(s): Multiple cardiac stents-4 of them, 2000 CABG 2 vessel, L carpal tunnel, D&C, colonoscopy. [employer] AICD Past Anesthesia/Blood Transfusion Reactions: Previous Problems w/ Anesthesia, Motion Sickness Additional Past Anesthesia/Blood Transfusion Reaction / Comment(s): WOKE UP DURING PROCEDURE Date of Last Stent Placement:: 2009 Type of Cardiac Device: Permanent Pacemaker, AICD Device Placement Date:: 05/2014 Smoking Status: Former smoker - Past Family History Mother Family Medical History: Hypertension, Myocardial Infarction (LA) Additional Family Medical History / Comment(s): Mother of a LA at the age of 63 yrs. Sister(s) Family Medical History: Cancer Additional Family Medical History / Comment(s): Breast Cancer Father Family Medical History: Coronary Artery Disease (CAD), Hypertension, Myocardial Infarction (LA) Additional Family Medical History / Comment(s): Father of a LA at the age of 50 yrs. Medications and Allergies Home Medications Medication Instructions Recorded Confirmed Type Metoprolol Tartrate [Lopressor] 75 mg PO BID 12/25/13 10/24/19 History Oxybutynin Chloride [Ditropan] 5 mg PO BID 12/25/13 10/24/19 History Aspirin 81 mg PO BID chew 04/01/16 10/24/19 Rx Losartan Potassium 50 mg PO DAILY 04/01/16 10/24/19 History Cholecalciferol [Vitamin D3 (25 1,000 unit PO DAILY 10/22/18 10/24/19 History Mcg = 1000 Iu)] ARIPiprazole [Abilify] 2 mg PO DAILY 10/24/19 10/24/19 History Albuterol Sulfate [Ventolin HFA] 2 puff INHALATION RT-Q6H PRN 10/24/19 10/24/19 History DULoxetine HCL [Cymbalta] 60 mg PO DAILY 10/24/19 10/24/19 History Fluticasone Nasal [place] [Flonase 2 spr EA NOSTRIL BID PRN 10/24/19 10/24/19 History Nasal [place]] Gabapentin [Neurontin] 100 mg PO BID 10/24/19 10/24/19 History HYDROcodone/APAP 5-325MG [[place] 1 tab PO DAILY PRN 10/24/19 10/24/19 History 5-325] Isosorbide Mononitrate 20 mg PO DAILY 10/24/19 10/24/19 History Isosorbide Mononitrate ER [Imdur] 30 mg PO DAILY #30 tab.er.24h 10/24/19 Rx Isosorbide Mononitrate [Ismo] 20 mg PO DAILY tab 10/24/19 Rx Pantoprazole [Protonix] 40 mg PO DAILY 10/24/19 10/24/19 History Allergies Allergy/AdvReac Type Severity Reaction Status Date / Time clopidogrel bisulfate Allergy Rash/Hives Verified 10/24/19 09:19 [From Plavix] atorvastatin calcium AdvReac Severe Verified 10/24/19 09:19 [From Lipitor] muscle pain simvastatin [From Zocor] AdvReac Severe Verified 10/24/19 09:19 muscle pain Physical Exam Vitals: Vital Signs Temp Pulse Pulse Pulse Resp BP BP 10/24/19 11:50 52 L 16 108/56 10/24/19 08:00 97.9 F 64 16 105/73 10/24/19 02:58 97.9 F 72 18 139/68 10/24/19 01:01 98.1 F 88 18 149/78 10/23/19 23:06 97.8 F 93 18 168/124 Pulse Ox 10/24/19 11:50 92 L 10/24/19 08:00 92 L 10/24/19 02:58 94 L 10/24/19 01:01 100 10/23/19 23:06 97 Intake and Output 10/23/19 10/24/19 10/24/19 22:59 06:59 14:59 Intake Total 450 180 Balance 450 180 Intake: Oral 450 180 Other: Voiding Method Toilet # Voids 2 2 Weight 115.666 kg PHYSICAL EXAMINATION: GENERAL: The patient is alert and oriented x3, not in any acute distress. Well developed, well nourished. HEENT: Pupils are round and equally reacting to light. EOMI. No scleral icterus. No conjunctival pallor. Normocephalic, atraumatic. No pharyngeal erythema. No thyromegaly. CARDIOVASCULAR: S1 and S2 present. No murmurs, rubs, or gallops. PULMONARY: Chest is clear to auscultation, no wheezing or crackles. ABDOMEN: Soft, nontender, nondistended, normoactive bowel sounds. No palpable organomegaly. MUSCULOSKELETAL: No joint swelling or deformity. EXTREMITIES: No cyanosis, clubbing, or pedal edema. NEUROLOGICAL: Gross neurological examination did not reveal any focal deficits. SKIN: No rashes. Results CBC & Chem 7: 10/23/19 23:30 10/23/19 23:30 Labs: Abnormal Lab Results - Last 24 Hours (Table) 10/23/19 10/23/19 10/23/19 Range/Units 23:30 23:30 23:40 Hct 46.2 H (34.0-46.0) % Sodium 133 L (137-145) mmol/L Glucose 311 H (74-99) mg/dL POC Glucose (mg/dL) (75-99) mg/dL Magnesium 1.5 L (1.6-2.3) mg/dL Urine Protein Trace H (Negative) Urine Glucose (UA) 2+ H (Negative) Ur Leukocyte Esterase Moderate H (Negative) Urine WBC 18 H (0-5) /hpf Urine Bacteria Rare H (None) /hpf Urine Mucus Rare H (None) /hpf 10/24/19 Range/Units 10:43 Hct (34.0-46.0) % Sodium (137-145) mmol/L Glucose (74-99) mg/dL POC Glucose (mg/dL) 328 H (75-99) mg/dL Magnesium (1.6-2.3) mg/dL Urine Protein (Negative) Urine Glucose (UA) (Negative) Ur Leukocyte Esterase (Negative) Urine WBC (0-5) /hpf Urine Bacteria (None) /hpf Urine Mucus (None) /hpf Microbiology - Last 24 Hours (Table) 10/23/19 23:40 Urine Culture - Preliminary Urine,Voided Assessment and Plan Plan: -Chest pain: Rule out acute colitis syndromes probably secondary to anxiety or palpitations. Patient will be a evaluated by cardiology. If cleared by cardiology patient will be discharged to -Palpitations can be related to atrial fibrillation patient appears to be bit dehydrated clinically received IV fluids that may have contributed to her tachycardia. Unsure whether patient actually has atrial fibrillation although her chads score is low because of which patient is probably not on anticoagulation and patient also is on aspirin at this time. Which will be continued. Patient is probably sinus rhythm no changes in the dose of beta rosanna is being made at this time. Patient has a permanent pacemaker and an AICD -Hypertension -Carotid artery disease with the. Previous angioplasty -COPD without any acute exacerbation Hypercholesterolemia Osteoarthritis of multiple joints Sleep apnea -Depression
--- NOTE | 2019-10-24 12:30 | P.CRDCN ---
History of Present Illness Consult date: 10/24/19 Consult reason: chest pain History of present illness: This is a pleasant 61-year-old female with known history of coronary artery disease and prior bypass surgery, AICD initially placed in 2000 and upgraded to a biventricular AICD in 2004, hypertension, hyperlipidemia, obstructive sleep apnea CPAP, who presented to the hospital with symptoms of chest discomfort with palpitations. Chest pain was on the left side of her chest with no radiation. Troponins negative 3. EKG reveals a normal sinus rhythm with left axis deviation and poor R-wave progression. She underwent a cardiac catheterization in 2017 which revealed [place] 3 vessel coronary artery disease with occluded grafts based on prior cardiac catheterization data. Pa tent stents within the LAD and right coronary artery, with chronic severe occlusion of the proximal circumflex which was not amenable to stenting in the past. Recommendation was to continue maximal medical therapy. Patient was seen and examined this morning, denies any chest pain or difficulty in breathing. Review Of Systems: Constitutional: No fever, no chills, no night sweats. No weight change. No weakness, fatigue or lethargy. No daytime sleepiness. EENT: No headache. No blurred vision or double vision, no loss of vision. No loss of Hearing, no ringing in the ears, no dizziness. No nasal drainage or congestion. No epistaxis. No sore throat. Lungs: No shortness of breath, cough, no sputum production. No wheezing. Cardiovascular: No chest pain, no lower extremity edema. No palpitations. No paroxysmal nocturnal dyspnea. No orthopnea. No lightheadedness or dizziness. No syncopal episodes. Abdominal: No abdominal pain. No nausea, vomiting. No diarrhea. No constipat ion. No bloody or tarry stools.. No loss of appetite. Genitourinary: No dysuria, increased frequency, urgency. No urinary retention. Musculoskeletal: No myalgias. No muscle weakness, no gait dysfunction, no frequent falls. No back pain. No neck pain. Integumentary: No wounds, no lesions. No rash or pruritus. No unusual bruising. No change in hair or nails. Neurologic: No aphasia. No facial droop. No change in mentation. No head injury. No headache. No paralysis. No paresthesia. Psychiatric: No depression. No anxiety. No mood swings. Endocrine: No abnormal blood sugars. No weight change. No excessive sweating or thirst. No cold intolerance. No weight change. Gen: This is a morbidly obese 64-year-old female. Patient is resting in bed appears to be comfortable and in no acute distress. VS: Afebrile, heart rate 64, blood pressure 108/56, pulse ox 92% on room air. HEENT: Head is atraumatic, normocephalic. Pupils equal, round. Sclerae is anicteric. NECK: Supple. No JVD. No lymphadenopathy. No thyromegaly. LUNGS: Clear to auscultation. No wheezes or rhonchi. No intercostal retractions. HEART: Regular rate and rhythm. No murmur. Distant heart sounds. ABDOMEN: Soft. Bowel sounds are present. No masses. No tenderness. EXTREMITIES: No pedal edema. No calf tenderness. NEUROLOGICAL: Patient is awake, alert and oriented x3. Cranial nerves 2 through 12 are grossly intact. Assessment: Chest pain without acute coronary syndrome History of coronary artery disease with prior bypass surgery and stenting AICD Hypertension Hyperlipidemia, ALLERGY to statin, on Zetia Plan: Patient is cleared from cardiology for discharge. Continue current medications with adjustments made by attending. Recommend follow-up in the office with Dr. Doty in the next week. Thank you kindly for this consultation Nurse practitioner note has been reviewed, I agree with documented findings and plan of care. Patient was seen and examined. Past Medical History Past Medical History: Atrial Fibrillation, Coronary Artery Disease (CAD), Heart Failure, COPD, Hyperlipidemia, Hypertension, Myocardial Infarction ([place]), Osteoarthritis (OA), Rheumatoid Arthritis (RA), Sleep Apnea/CPAP/BIPAP Additional Past Medical History / Comment(s): Heart Murmur, since CABG-L arm larger than right, Back & Cervical pain., [place]yer carpal tunnel syndrome ., C-Pap machine., Hx of colon polyps, Eczema. Last Myocardial Infarction Date:: 1999 History of Any Multi-Drug Resistant Organisms: None Reported Past Surgical History: AICD, Appendectomy, Section, Cholecystectomy, Coronary Bypass/CABG, Heart Catheterization, Heart Catheterization With Stent, Pacemaker Additional Past Surgical History / Comment(s): Multiple cardiac stents-4 of them, 2000 CABG 2 vessel, L carpal tunnel, D&C, colonoscopy. [employer] AICD Past Anesthesia/Blood Transfusion Reactions: Previous Problems w/ Anesthesia, Motion Sickness Additional Past Anesthesia/Blood Transfusion Reaction / Comment(s): WOKE UP DURING PROCEDURE Date of Last Stent Placement:: 2009 Type of Cardiac Device: Permanent Pacemaker, AICD Device Placement Date:: 05/2014 Smoking Status: Former smoker - Past Family History Mother Family Medical History: Hypertension, Myocardial Infarction (SD) Additional Family Medical History / Comment(s): Mother of a SD at the age of 63 yrs. Sister(s) Family Medical History: Cancer Additional Family Medical History / Comment(s): Breast Cancer Father Family Medical History: Coronary Artery Disease (CAD), Hypertension, Myocardial Infarction (SD) Additional Family Medical History / Comment(s): Father of a SD at the age of 50 yrs. Medications and Allergies Home Medications Medication Instructions Recorded Confirmed Type Metoprolol Tartrate [Lopressor] 75 mg PO BID 12/25/13 10/24/19 History Oxybutynin Chloride [Ditropan] 5 mg PO BID 12/25/13 10/24/19 History Aspirin 81 mg PO BID chew 04/01/16 10/24/19 Rx Losartan Potassium 50 mg PO DAILY 04/01/16 10/24/19 History Cholecalciferol [Vitamin D3 (25 1,000 unit PO DAILY 10/22/18 10/24/19 History Mcg = 1000 Iu)] ARIPiprazole [Abilify] 2 mg PO DAILY 10/24/19 10/24/19 History Albuterol Sulfate [Ventolin HFA] 2 puff INHALATION RT-Q6H PRN 10/24/19 10/24/19 History DULoxetine HCL [Cymbalta] 60 mg PO DAILY 10/24/19 10/24/19 History Fluticasone Nasal [place] [Flonase 2 spr EA NOSTRIL BID PRN 10/24/19 10/24/19 History Nasal [place]] Gabapentin [Neurontin] 100 mg PO BID 10/24/19 10/24/19 History HYDROcodone/APAP 5-325MG [[place] 1 tab PO DAILY PRN 10/24/19 10/24/19 History 5-325] Isosorbide Mononitrate ER [Imdur] 30 mg PO DAILY #30 tab.er.24h 10/24/19 Rx Pantoprazole [Protonix] 40 mg PO DAILY 10/24/19 10/24/19 History Allergies Allergy/AdvReac Type Severity Reaction Status Date / Time clopidogrel bisulfate Allergy Rash/Hives Verified 10/24/19 09:19 [From Plavix] atorvastatin calcium AdvReac Severe Verified 10/24/19 09:19 [From Lipitor] muscle pain simvastatin [From Zocor] AdvReac Severe Verified 10/24/19 09:19 muscle pain Physical Exam Vitals: Vital Signs Temp Pulse Pulse Resp BP BP Pulse Ox 10/24/19 02:58 97.9 F 72 18 139/68 94 L 10/24/19 01:01 98.1 F 88 18 149/78 100 10/23/19 23:06 97.8 F 93 18 168/124 97 Intake and Output 10/23/19 10/24/19 10/24/19 22:59 06:59 14:59 Intake Total 450 Balance 450 Intake: Oral 450 Other: Voiding Method Toilet # Voids 2 Weight 115.666 kg Results 10/23/19 23:30 10/23/19 23:30 Cardiac Enzymes 10/23/19 10/23/19 10/24/19 Range/Units 23:30 23:30 05:28 AST 27 (14-36) U/L Troponin I <0.012 <0.012 (0.000-0.034) ng/mL Coagulation 10/23/19 Range/Units 23:30 PT 10.0 (9.0-12.0) sec APTT 22.0 (22.0-30.0) sec CBC 10/23/19 Range/Units 23:30 WBC 8.4 (3.8-10.6) k/uL RBC 5.40 (3.80-5.40) m/uL Hgb 15.8 (11.4-16.0) gm/dL Hct 46.2 H (34.0-46.0) % Plt Count 159 (150-450) k/uL Comprehensive Metabolic Panel 10/23/19 Range/Units 23:30 Sodium 133 L (137-145) mmol/L Potassium 4.2 (3.5-5.1) mmol/L Chloride 98 (98-107) mmol/L Carbon Dioxide 24 (22-30) mmol/L BUN 16 (7-17) mg/dL Creatinine 0.87 (0.52-1.04) mg/dL Glucose 311 H (74-99) mg/dL Calcium 9.8 (8.4-10.2) mg/dL AST 27 (14-36) U/L ALT 33 (4-34) U/L Alkaline Phosphatase 126 (38-126) U/L Total Protein 8.0 (6.3-8.2) g/dL Albumin 4.8 (3.5-5.0) g/dL Current Medications Generic Name Dose Route Start Last Admin Trade Name Freq PRN Reason Stop Dose Admin Hydrocodone Bitart/Acetaminophen 1 each 10/24/19 02:56 10/24/19 03:07 [place] 5-325 PO 1 each Q6HR PRN Administration Pain Aspirin 325 mg 10/25/19 09:00 Aspirin PO DAILY [facility] Sodium Chloride 1,000 mls @ 100 mls/hr 10/24/19 01:30 10/24/19 01:30 Saline 0.9% IV 100 mls/hr .Q10H YVONNE Administration Metoprolol Tartrate 25 mg 10/24/19 09:00 Lopressor PO BID YVONNE Nitroglycerin 0.4 mg 10/24/19 01:16 Nitrostat SUBLINGUAL Q5M PRN Chest Pain Intake and Output 10/23/19 10/24/19 10/24/19 22:59 06:59 14:59 Intake Total 450 Balance 450 Intake: Oral 450 Other: Voiding Method Toilet # Voids 2 Weight 115.666 kg 10/23/19 23:30 10/23/19 23:30
[2019-10-24] MEDS ORDERED: GABAPENTIN 100 MG CAP PO SCH (21:00)
[2019-10-24] MEDS ORDERED: OXYBUTYNIN CHLORIDE 5 MG TAB PO SCH (21:00)
[2019-10-25] MEDS ORDERED: PANTOPRAZOLE 40 MG TABLET PO SCH (07:30)
[2019-10-25] MEDS ORDERED: ASPIRIN 325 MG TAB PO SCH (09:00)
[2019-10-25] MEDS ORDERED: ISOSORBIDE MONONITRATE 20 MG TAB PO SCH (09:00)
[2019-10-25] MEDS ORDERED: ARIPiprazole 2 MG TAB PO SCH (09:00)
[2019-10-25] MEDS ORDERED: DULoxetine HCL 60 MG CAPSULE.DR PO SCH (09:00)
[2019-10-25 10:54] LABS: Hemoglobin A1C 10.7 % (4.0-6.0)
== END 2019-10-24 14:34 | disposition home or self-care (01) ==
LOC: EC 23:04 → 3SCARD 10-24 01:16
PROVIDERS: ADMIT Hospitalist; ATTEND Hospitalist
DX: R00.2 Palpitations (principal); R73.9 Hyperglycemia, unspecified; E78.5 Hyperlipidemia, unspecified; E87.1 Hypo-osmolality and hyponatremia; F32.9 Major depressive disorder, single episode, unspecified; R06.02 Shortness of breath; R07.9 Chest pain, unspecified; F41.9 Anxiety disorder, unspecified; G47.30 Sleep apnea, unspecified; I11.0 Hypertensive heart disease with heart failure; I50.9 Heart failure, unspecified; I25.10 Atherosclerotic heart disease of native coronary artery without angina pectoris; I25.2 Old myocardial infarction; I48.91 Unspecified atrial fibrillation; J44.9 Chronic obstructive pulmonary disease, unspecified; M06.9 Rheumatoid arthritis, unspecified; M15.9 Polyosteoarthritis, unspecified; Z79.1 Long term (current) use of non-steroidal anti-inflammatories (NSAID); Z79.82 Long term (current) use of aspirin; Z79.899 Other long term (current) drug therapy; Z80.3 Family history of malignant neoplasm of breast; Z82.49 Family history of ischemic heart disease and other diseases of the circulatory system; Z87.19 Personal history of other diseases of the digestive system; Z87.891 Personal history of nicotine dependence; Z88.8 Allergy status to other drugs, medicaments and biological substances; Z95.1 Presence of aortocoronary bypass graft; Z95.5 Presence of coronary angioplasty implant and graft; Z95.810 Presence of automatic (implantable) cardiac defibrillator; E66.01 Morbid (severe) obesity due to excess calories; Z68.41 Body mass index [BMI] 40.0-44.9, adult
CPT/HCPCS: 96365; 99285; 36415; 93005 ×2; 83880; 80053; 83735; 84100; 84484 ×2; 85025; 85610; 85730; 81001; 87086; 83036; 71046; G0378; J3475

== ENCOUNTER 2021-01-27 03:31 | Inpatient (IN) | payer MEDICARE ==
--- NOTE | 2021-01-27 04:10 | XR ---
EXAMINATION TYPE: XR chest 2V DATE OF EXAM: 01/27/2021 COMPARISON: 10/24/2019 HISTORY: Chest pain TECHNIQUE: 2 views FINDINGS: There is no heart failure nor confluent pneumonic infiltrate. There are sternal wires. Ther e is left axillary pacemaker. There are chest leads. Costophrenic angles are clear. Bony thorax appea rs intact. IMPRESSION: No active cardiopulmonary disease. No change.
[2021-01-27 04:18] LABS: Basophils # (A) 0.1 k/uL (0-0.2); Basophils % (A) 1 %; Eosinophils # (A) 0.3 k/uL (0-0.7); Eosinophils % (A) 4 %; HCT 42.4 % (34.0-46.0); HGB 14.2 gm/dL (11.4-16.0); Lymphocytes # (A) 1.7 k/uL (1.0-4.8); Lymphocytes % (A) 21 %; MCH 29.2 pg (25.0-35.0); MCHC 33.5 g/dL (31.0-37.0); MCV 87.3 fL (80.0-100.0); Mean Platelet Volume 9.3; Monocytes # (A) 0.3 k/uL (0-1.0); Monocytes % (A) 4 %; Neutrophils # (A) 5.9 k/uL (1.3-7.7); Neutrophils % (A) 70 %; Platelet Count 154 k/uL (150-450); RBC 4.86 m/uL (3.80-5.40); RDW 13.9 % (11.5-15.5); WBC 8.4 k/uL (3.8-10.6)
[2021-01-27 04:26] LABS: INR 0.9 (<1.2); Partial Thromboplastin Time 22.2 sec (22.0-30.0); Prothrombin Time 9.9 sec (9.0-12.0)
[2021-01-27 04:35] LABS: Albumin 4.2 g/dL (3.5-5.0); Calcium 9.5 mg/dL (8.4-10.2); Magnesium 1.8 mg/dL (1.6-2.3); Potassium 4.3 mmol/L (3.5-5.1); Total Bilirubin 0.2 mg/dL (0.2-1.3); Total Protein 6.7 g/dL (6.3-8.2)
[2021-01-27] MEDS ORDERED: MORPHINE SULFATE 4 MG/ML SYRINGE IV STA ×2 (05:08→06:23)
[2021-01-27] MEDS ORDERED: HEPARIN SODIUM 1,000 UN/ML (10ML VL) IV ONE (06:23)
[2021-01-27] MEDS ORDERED: NITROGLYCERIN OINT 1 INCH/GM PACKET TOPICAL STA (06:23)
[2021-01-27] MEDS ORDERED: HEPARIN SODIUM 1,000 UN/ML (10ML VL) IV PRN (06:23)
[2021-01-27] MEDS ORDERED: NITROGLYCERIN SL TABS 0.4 MG TAB SUBLINGUAL PRN ×3 (06:24→12:33)
[2021-01-27] MEDS ORDERED: MORPHINE SULFATE 4 MG/ML SYRINGE IV PRN (06:24)
[2021-01-27] MEDS ORDERED: SODIUM CHLORIDE 0.9% 1,000 ML IV SCH ×2 (06:30→12:45)
[2021-01-27] MEDS ORDERED: HEPARIN SOD,PORK IN 0.45% NACL 25,000 UNIT in 0.45% NACL 1 250ML.BAG IV SCH (06:30)
--- NOTE | 2021-01-27 06:44 | ED ---
Chest Pain HPI - General Chief Complaint: Chest Pain Stated Complaint: Chest Pain Time Seen by Provider: 01/27/21 03:43 Source: patient Mode of arrival: wheelchair Limitations: no limitations - History of Present Illness Initial Comments: This patient is a 65-year-old woman who presents with thoracic pain that radiates to the arms. She states that this had started 2 days ago, but resolves. It has been intermittent since then. Tonight it recurred approximately 2 hours ago. She also is feeling a little dyspneic with the pain. Patient states the pain is reminiscent of what she had when she required stenting. MD Complaint: chest pain -: days(s) Onset: during rest Pain Location: left chest Pain Radiation: RUE, LUE Severity: moderate Quality: aching Consistency: intermittent Improves With: nothing Worsens With: nothing Anginal Symptoms: dyspnea - Related Data Home Medications Medication Instructions Recorded Confirmed Metoprolol Tartrate [Lopressor] 75 mg PO BID 12/25/13 10/24/19 Oxybutynin Chloride [Ditropan] 5 mg PO BID 12/25/13 10/24/19 Losartan Potassium 50 mg PO DAILY 04/01/16 10/24/19 Cholecalciferol [Vitamin D3 (25 1,000 unit PO DAILY 10/22/18 10/24/19 Mcg = 1000 Iu)] ARIPiprazole [Abilify] 2 mg PO DAILY 10/24/19 10/24/19 Albuterol Sulfate [Ventolin HFA] 2 puff INHALATION RT-Q6H PRN 10/24/19 10/24/19 DULoxetine HCL [Cymbalta] 60 mg PO DAILY 10/24/19 10/24/19 Fluticasone Nasal [place] [Flonase 2 spr EA NOSTRIL BID PRN 10/24/19 10/24/19 Nasal [place]] Gabapentin [Neurontin] 100 mg PO BID 10/24/19 10/24/19 HYDROcodone/APAP 5-325MG [[place] 1 tab PO DAILY PRN 10/24/19 10/24/19 5-325] Pantoprazole [Protonix] 40 mg PO DAILY 10/24/19 10/24/19 Previous Rx's Medication Instructions Recorded Aspirin 81 mg PO BID chew 04/01/16 Isosorbide Mononitrate ER [Imdur] 30 mg PO DAILY #30 tab.er.24h 10/24/19 metFORMIN HCL [Glucophage] 500 mg PO BID #60 tab 10/24/19 Allergies Allergy/AdvReac Type Severity Reaction Status Date / Time clopidogrel bisulfate Allergy Rash/Hives Verified 01/27/21 03:45 [From Plavix] atorvastatin calcium AdvReac Severe Verified 01/27/21 03:45 [From Lipitor] muscle pain simvastatin [From Zocor] AdvReac Severe Verified 01/27/21 03:45 muscle pain Review of Systems ROS Statement: Those systems with pertinent positive or pertinent negative responses have been documented in the HPI. ROS Other: All systems not noted in ROS Statement are negative. Constitutional: Denies: fever, chills Respiratory: Denies: cough, dyspnea, wheezes Cardiovascular: Reports: as per HPI, chest pain. Denies: palpitations, orthopnea, edema, syncope Gastrointestinal: Denies: abdominal pain, nausea, vomiting Genitourinary: Denies: dysuria, hematuria Musculoskeletal: Denies: back pain Skin: Denies: rash Neurological: Denies: headache, weakness, numbness EKG Findings - EKG Results: EKG: interpreted by ERMD, sinus rhythm - Blocks, [place], Hypertrophy, ST Abn: QRS axis and voltage: left axis deviation (-30 to -90) Repolarization changes or abnormalities: nonspecific abnormality, ST segment, and/or T wave - NM, Pacemaker, Normal: Myocardial infarction: septal NM (old age or indeterminate), anterior NM (old age or indeterminate) Past Medical History Past Medical History: Atrial Fibrillation, Coronary Artery Disease (CAD), Heart Failure, COPD, Hyperlipidemia, Hypertension, Myocardial Infarction (NM), Osteoarthritis (OA), Rheumatoid Arthritis (RA), Sleep Apnea/CPAP/BIPAP Additional Past Medical History / Comment(s): Heart Murmur, since CABG-L arm larger than right, Back & Cervical pain., Sawyer carpal tunnel syndrome ., C-Pap machine., Hx of colon polyps, Eczema. Last Myocardial Infarction Date:: 1999 History of Any Multi-Drug Resistant Organisms: None Reported Past Surgical History: AICD, Appendectomy, Section, Cholecystectomy, Coronary Bypass/CABG, Heart Catheterization, Heart Catheterization With Stent, Pacemaker Additional Past Surgical History / Comment(s): Multiple cardiac stents-4 of them, 2000 CABG 2 vessel, L carpal tunnel, D&C, colonoscopy. MEDTRONIC AICD Past Anesthesia/Blood Transfusion Reactions: Previous Problems w/ Anesthesia, Motion Sickness Additional Past Anesthesia/Blood Transfusion Reaction / Comment(s): WOKE UP DURING PROCEDURE Date of Last Stent Placement:: 2009 Type of Cardiac Device: Permanent Pacemaker, AICD Device Placement Date:: 05/2014 Past Psychological History: Anxiety, Depression Smoking Status: Never smoker Past Alcohol Use History: Rare Past Drug Use History: None Reported - Past Family History Mother Family Medical History: Hypertension, Myocardial Infarction (NM) Additional Family Medical History / Comment(s): Mother of a NM at the age of 63 yrs. Sister(s) Family Medical History: Cancer Additional Family Medical History / Comment(s): Breast Cancer Father Family Medical History: Coronary Artery Disease (CAD), Hypertension, Myocardial Infarction (NM) Additional Family Medical History / Comment(s): Father of a NM at the age of 50 yrs. General Exam Limitations: no limitations General appearance: alert, in no apparent distress Head exam: Present: atraumatic, normocephalic Eye exam: Present: normal appearance Respiratory exam: Present: normal lung sounds bilaterally. Absent: respiratory distress, wheezes, rales, rhonchi, stridor, chest wall tenderness Cardiovascular Exam: Present: regular rate, normal rhythm, systolic murmur (Grade 1/6 systolic ejection murmur). Absent: diastolic murmur, rubs, gallop GI/Abdominal exam: Present: soft. Absent: distended, tenderness, guarding, rebound, rigid, mass, pulsatile mass, hernia Extremities exam: Present: normal inspection, normal capillary refill. Absent: pedal edema, calf tenderness Back exam: Present: normal inspection. Absent: CVA tenderness (R), CVA tenderness (L) Neurological exam: Present: alert Skin exam: Present: warm, dry, intact, normal color. Absent: rash Course Vital Signs 01/27/21 01/27/21 03:35 06:43 Temperature 98.4 F Pulse Rate 95 63 Respiratory 18 16 Rate Blood Pressure 199/90 147/89 O2 Sat by Pulse 95 94 L Oximetry Disposition Referrals: Dena Albrecht DO [Primary Care Provider] - 1-2 days
[2021-01-27] MEDS ORDERED: ASPIRIN 81 MG PO STA (06:45)
[2021-01-27] MEDS ORDERED: ALPRAZolam 0.25 MG TAB PO PRN (08:30)
[2021-01-27] MEDS ORDERED: ASPIRIN 325 MG TAB PO STA (08:30)
[2021-01-27] MEDS ORDERED: ATORVASTATIN 80 MG TAB PO STA (08:30)
[2021-01-27] MEDS ORDERED: SODIUM CHLORIDE 0.9% 1,000 ML in EMPTY BAG 1 BAG IV ONE (08:30)
[2021-01-27] MEDS ORDERED: METOPROLOL TARTRATE 25 MG TAB PO SCH (09:00)
--- NOTE | 2021-01-27 09:08 | CONS ---
CONSULTATION A 65-year-old female who is followed on a regular basis by Dr. Doty. Has a history of diabetes mellitus, history of hypertension and hyperlipidemia, history of coronary artery disease status post coronary artery bypass grafting in 2000 with subsequent occluded graft and underwent multiple percutaneous revascularization. Her most recent cardiac catheterization was in 2017 and at that time she had patent stent to the LAD and to the right coronary artery with a critical stenosis in the left circumflex that could not be angioplastied in the past and medical therapy was recommended. The patient presented with symptoms of chest discomfort that started yesterday across the chest, radiating to both arms reminding her of the symptoms she had prior to her PCI. This is the first time she has had pain since her event. She has dyspnea. No dizziness. No palpitation. No syncope. No clear PND nor orthopnea. Her last echocardiogram available to me is from 2015 and at that time, her left ventricular systolic function was calculated at 40-45% with anteroseptal hypokinesis with mild mitral and tricuspid regurgitation. The patient has no history of smoking. She has history of diabetes, hypertension and hyperlipidemia. MEDICATION: Her medications at home include metformin, Protonix, Ditropan, Lopressor 75 mg twice a day, losartan 50 mg daily, isosorbide mononitrate 30 mg daily, gabapentin, duloxetine, aspirin, albuterol, and Abilify. REVIEW OF SYSTEMS: RESPIRATORY SYSTEM: She has dyspnea on exertion. No recent wheezing or cough. GI SYSTEM: No recent GI bleeding. No peptic ulcer disease. SYSTEM: No dysuria or hematuria. NERVOUS SYSTEM: She has a history of stroke but no seizure. ALLERGIES: SHE HAS SEVERE MYALGIA FOR STATIN. PHYSICAL EXAMINATION: GENERAL: She is a 65-year-old female, alert, oriented, in no apparent distress. VITAL SIGNS: Blood pressure 145/72 with a heart rate in 70s. HEAD: Normocephalic. Eyes sclerae anicteric. NECK: Good carotid upstroke. No bruit. No jugular venous distention. LUNGS: Clear to auscultation. HEART: Regular rate and rhythm S1, S2. No S3 with systolic murmur at the base. No diastolic murmur, no rub. ABDOMEN: Soft, nontender, positive bowel sounds, no organomegaly. EXTREMITIES: No edema. Intact pulses. LAB DATA: Lab data revealed BUN and creatinine are 23 and 0.9, potassium 4.3. Troponin of 0.218 and 0.581. Hemoglobin of 14.2 EKG revealed a sinus mechanism, left axis deviation, evidence of anterior myocardial infarction with T-wave inversion in the lateral leads. Chest x-ray shows no acute infiltrate. There are no significant changes on her EKG. IMPRESSION: 1. Evidence of non ST-segment elevation myocardial infarction in a patient with known history of coronary artery disease with occluded graft and evidence of prior percutaneous revascularization with known occlusive disease in the circumflex that was not amenable to angioplasty. 2. History of hypertension. 3. Hyperlipidemia. 4. Diabetes mellitus. RECOMMENDATION: I have recommended to obtain echocardiogram with Doppler. Continue medical therapy and recommend proceeding with coronary angiography to assess her status and guide her treatment. The findings as well as recommendation were discussed with the patient who is in full understanding and agreement. Thank you for this consult. We will follow with you. TAWANA / IJN: [id number] /
[2021-01-27] MEDS ORDERED: ALBUTEROL NEBULIZED 2.5 MG/3 ML INHALATION PRN (09:20)
[2021-01-27] MEDS ORDERED: FLUTICASONE 50MCG/SPRAY NASAL 16GM EA NOSTRIL PRN (09:20)
[2021-01-27] MEDS ORDERED: METOPROLOL SUCCINATE (ER) 25 MG TAB.ER.24H PO SCH (09:30)
[2021-01-27 09:32] LABS: Glucose,Whole Blood 126 mg/dL (75-99)
[2021-01-27] MEDS: ISOSORBIDE MONONITRATE ER 30 MG TAB.ER.24H PO SCH (09:42)
[2021-01-27] MEDS: DULoxetine HCL 60 MG CAPSULE.DR PO SCH (09:42)
[2021-01-27] MEDS: LOSARTAN 50 MG TAB PO SCH (09:42)
[2021-01-27] MEDS: CHOLECALCIFEROL 25 MCG (1000 IU) TABLET PO SCH (09:42)
[2021-01-27] MEDS: EZETIMIBE 10 MG TAB PO SCH (09:48)
--- NOTE | 2021-01-27 10:13 | P.HPIM ---
History of Present Illness Patient is a pleasant 65-year-old female came in with complaints of chest pressure like sensation was started yesterday constant radiating to both arms. Associated with some lightheadedness mild diaphoresis denied any shortness of b reath. Patient had history of CABG and multiple stents in the past. Patient denied any nausea vomiting patient denied any pleuritic chest pain. Patient has mildly elevated troponins with some significant EKG changes in the inferior and lateral leads., T-wave inversions in these leads. Patient was evaluated by cardiology and patient will undergo cardiac catheter physician today. Patient denied any orthopnea or paroxysmal nocturnal dyspnea, palpitations. Patient had congestive heart failure chronic systolic dysfunction with the EF of around 40- 45% from her previous echocardiogram repeat echogram was ordered. REVIEW OF SYSTEMS: CONSTITUTIONAL: No fever, no malaise, no fatigue. HEENT: No recent visual problems or hearing problems. Denied any sore throat. CARDIOVASCULAR: As mentioned in HPI PULMONARY: No shortness of breath, no cough, no hemoptysis. GASTROINTESTINAL: No diarrhea, no nausea, no vomiting, no abdominal pain. NEUROLOGICAL: No headaches, no weakness, no numbness. HEMATOLOGICAL: Denies any bleeding or petechiae. GENITOURINARY: Denies any burning micturition, frequency, or urgency. MUSCULOSKELETAL/RHEUMATOLOGICAL: Denies any joint pain, swelling, or any muscle pain. ENDOCRINE: Denies any polyuria or polydipsia. The rest of the 14-point review of systems is negative. PHYSICAL EXAMINATION: GENERAL: The patient is alert and oriented x3, not in any acute distress. Obese HEENT: Pupils are round and equally reacting to light. EOMI. No scleral icterus. No conjunctival pallor. Normocephalic, atraumatic. No pharyngeal erythema. No thyromegaly. CARDIOVASCULAR: S1 and S2 present. No murmurs, rubs, or gallops. PULMONARY: Chest is clear to auscultation, no wheezing or crackles. ABDOMEN: Soft, nontender, nondistended, normoactive bowel sounds. No palpable organomegaly. MUSCULOSKELETAL: No joint swelling or deformity. EXTREMITIES: No cyanosis, clubbing, or pedal edema. NEUROLOGICAL: Gross neurological examination did not reveal any focal deficits. SKIN: No rashes. Assessment and plan - acute non-ST elevation myocardial infarction: Patient on IV heparin at this time patient will undergo cardiac catheterization beta rosanna and antiplatelet therapy along with status will be continued for now -Type II diagnosed with us: Hold off metformin patient will be on sliding scale insulin -Hypertension next and-diabetic peripheral neuropathy -Significant coronary artery disease with history of CABG and multiple stents in the past -obesity -Congestive heart failure chronic systolic dysfunction without any acute exacerbation. Patient has an AICD in place -Depression DVT prophylaxis: On IV heparin now Past Medical History Past Medical History: Atrial Fibrillation, Coronary Artery Disease (CAD), Heart Failure, COPD, Hyperlipidemia, Hypertension, Myocardial Infarction (PA), Osteoarthritis (OA), Rheumatoid Arthritis (RA), Sleep Apnea/CPAP/BIPAP Additional Past Medical History / Comment(s): Heart Murmur, since CABG-L arm larger than right, Back & Cervical pain., Sawyer carpal tunnel syndrome ., C-Pap machine., Hx of colon polyps, Eczema. Last Myocardial Infarction Date:: 1999 History of Any Multi-Drug Resistant Organisms: None Reported Past Surgical History: AICD, Appendectomy, Section, Cholecystectomy, Coronary Bypass/CABG, Heart Catheterization, Heart Catheterization With Stent, Pacemaker Additional Past Surgical History / Comment(s): Multiple cardiac stents-4 of them, 2000 CABG 2 vessel, L carpal tunnel, D&C, colonoscopy. MEDTRONIC AICD Past Anesthesia/Blood Transfusion Reactions: Previous Problems w/ Anesthesia, Motion Sickness Additional Past Anesthesia/Blood Transfusion Reaction / Comment(s): WOKE UP DURING PROCEDURE Date of Last Stent Placement:: 2009 Type of Cardiac Device: Permanent Pacemaker, AICD Device Placement Date:: 05/2014 Past Psychological History: Anxiety, Depression Smoking Status: Never smoker Past Alcohol Use History: Rare Past Drug Use History: None Reported - Past Family History Mother Family Medical History: Hypertension, Myocardial Infarction (PA) Additional Family Medical History / Comment(s): Mother of a PA at the age of 63 yrs. Sister(s) Family Medical History: Cancer Additional Family Medical History / Comment(s): Breast Cancer Father Family Medical History: Coronary Artery Disease (CAD), Hypertension, Myocardial Infarction (PA) Additional Family Medical History / Comment(s): Father of a PA at the age of 50 yrs. Medications and Allergies Home Medications Medication Instructions Recorded Confirmed Type Oxybutynin Chloride [Ditropan] 5 mg PO BID 12/25/01/27/21 History Aspirin 81 mg PO BID chew 04/01/16 01/27/21 Rx Losartan Potassium 50 mg PO DAILY 04/01/16 01/27/21 History Cholecalciferol [Vitamin D3 (25 1,000 unit PO DAILY 10/22/18 01/27/21 History Mcg = 1000 Iu)] ARIPiprazole [Abilify] 2 mg PO DAILY 10/24/19 01/27/21 History Albuterol Sulfate [Ventolin HFA] 2 puff INHALATION RT-Q6H PRN 10/24/19 01/27/21 History DULoxetine HCL [Cymbalta] 60 mg PO DAILY 10/24/19 01/27/21 History Fluticasone Nasal [place] [Flonase 2 spr EA NOSTRIL BID PRN 10/24/19 01/27/21 History Nasal [place]] Isosorbide Mononitrate ER [Imdur] 30 mg PO DAILY #30 tab.er.24h 10/24/19 01/27/21 Rx metFORMIN HCL [Glucophage] 500 mg PO BID #60 tab 10/24/19 01/27/21 Rx Ibuprofen [Motrin] 800 mg PO Q8H PRN 01/27/21 01/27/21 History Metoprolol Succinate (ER) [Toprol 75 mg PO BID 01/27/21 01/27/21 History Xl] Allergies Allergy/AdvReac Type Severity Reaction Status Date / Time clopidogrel bisulfate Allergy Rash/Hives Verified 01/27/21 09:47 [From Plavix] atorvastatin calcium AdvReac Severe Verified 01/27/21 09:47 [From Lipitor] muscle pain simvastatin [From Zocor] AdvReac Severe Verified 01/27/21 09:47 muscle pain Physical Exam Vitals: Vital Signs Temp Pulse Resp BP Pulse Ox 01/27/21 08:25 98.0 F 70 18 145/76 98 01/27/21 06:43 63 16 147/89 94 L 01/27/21 03:35 98.4 F 95 18 199/90 95 Intake and Output 01/26/21 01/27/21 01/27/21 22:59 06:59 14:59 Other: Weight 117.934 kg Results CBC & Chem 7: 01/27/21 03:53 01/27/21 03:53 Labs: Abnormal Lab Results - Last 24 Hours (Table) 01/27/21 01/27/21 01/27/21 Range/Units 03:53 03:53 06:53 BUN 23 H (7-17) mg/dL Glucose 200 H (74-99) mg/dL POC Glucose (mg/dL) (75-99) mg/dL Troponin I 0.218 H* 0.581 H* (0.000-0.034) ng/mL 01/27/21 Range/Units 09:21 BUN (7-17) mg/dL Glucose (74-99) mg/dL POC Glucose (mg/dL) 126 H (75-99) mg/dL Troponin I (0.000-0.034) ng/mL
[2021-01-27] MEDS: ALPRAZolam 0.5 MG TAB PO PRN ×2 (10:47→16:39)
[2021-01-27] MEDS ORDERED: VERAPAMIL 2.5 MG/ML 2 ML AMP ONE (10:59)
[2021-01-27] MEDS ORDERED: HEPARIN SODIUM 1,000 UN/ML (10ML VL) ONE (10:59)
[2021-01-27] MEDS ORDERED: fentaNYL (PF) 50 MCG/ML 2 ML AMP ONE (10:59)
[2021-01-27] MEDS ORDERED: LIDOCAINE 1% INJ 10MG/ML (20 ML MDV) ONE (10:59)
[2021-01-27] MEDS ORDERED: IV FLUID CONTINUATION 1,000 ML IV ONE (11:25)
[2021-01-27] MEDS ORDERED: fentaNYL (PF) 50 MCG/ML 2 ML AMP IV ONE (11:44)
[2021-01-27] MEDS ORDERED: LIDOCAINE 1% INJ 10MG/ML (20 ML MDV) SQ ONE (11:44)
[2021-01-27] MEDS ORDERED: MIDAZOLAM 2 MG/2 ML VIAL IV ONE (11:45)
[2021-01-27] MEDS ORDERED: VERAPAMIL SYRINGE (5 MG/10 ML) INTRAARTER ONE (11:46)
[2021-01-27] MEDS: HEPARIN SODIUM 1,000 UN/ML (10ML VL) IV ONE ×3 (11:50→12:35)
[2021-01-27] MEDS ORDERED: TICAGRELOR 90 MG TAB ONE (11:55)
[2021-01-27] MEDS ORDERED: TICAGRELOR 90 MG TAB PO ONE (12:01)
[2021-01-27] MEDS ORDERED: IOPAMIDOL-370 125ML BTL INJ ONE (12:10)
[2021-01-27] MEDS ORDERED: IOPAMIDOL-370 100ML BTL INJ ONE (12:19)
[2021-01-27] MEDS ORDERED: ATROPINE SULFATE 0.1 MG/ML 10ML SYRINGE IV PRN (12:33)
[2021-01-27] MEDS ORDERED: RX INFO: IV CONTRAST WAS GIVEN 1 EACH MISC MISCELLANE PRN (12:33)
[2021-01-27] MEDS ORDERED: MAG HYDROX/AL HYDROX/SIMETH 30 ML CUP PO PRN (12:33)
[2021-01-27] MEDS ORDERED: ZOLPIDEM 5 MG TAB PO PRN (12:33)
[2021-01-27 12:40] LABS: Chol/HDL Ratio 4.58; LDL Cholesterol,Calculated 86.2 mg/dL (0.0-131.0); VLDL Calculation 67.8 mg/dL (5.00-40.00)
--- NOTE | 2021-01-27 13:46 | CC ---
CARDIAC CATHETERIZATION REPORT PROCEDURE PERFORMED: Cardiac catheterization. INDICATION: Mrs. Leos is a 65-year-old female with known history of coronary artery disease, history of ischemic cardiomyopathy status post coronary artery bypass grafting and percutaneous revascularization of her [place] vessel who is followed by Dr. Doty on a regular basis. She was told that her grafts were occluded in the past. Presented with symptoms of chest discomfort and troponin elevation. There was no evidence of ST- segment elevation. In view of that, recommendation was made regarding cardiac catheterization. The procedure as well as the risks and complications were discussed with the patient who is in full understanding and agreement. PROCEDURE: Patient was brought to laboratory apparatus glass blower in a fasting semi-sedate state after receiving fentanyl and Benadryl and achieving moderate conscious sedated state. Using Xylocaine anesthesia and Seldinger technique, a 6-Sudanese sheath was introduced in the right radial artery. Selective right and left coronary angiography performed using 5-Sudanese 3.5 bend right and left Cris catheter. Multiple views of the coronary arteries including hemiaxial views were obtained. The right Cris was used to cross the aortic valve. The left ventricular end-diastolic pressure was calculated. Following that, the catheters were removed. Images were reviewed. FLUOROSCOPY: There is calcification involving all the coronary arteries. FINDINGS: LEFT MAIN: This is a short size vessel, bifurcating into left circumflex, left anterior descending artery. Left main coronary artery has no evidence of high-grade stenosis. LEFT ANTERIOR DESCENDING ARTERY: This vessel is totally occluded in the mid segment after the takeoff of the first septal apparatus cleaner and first diagonal branch, there is no significant antegrade flow. THE LEFT CIRCUMFLEX: This is a large nondominant vessel giving rise to 2 obtuse marginal branchs. After the takeoff of the first obtuse marginal branch, there is a complex 99% stenosis. There is retrograde flow from the first obtuse marginal branch that appears to be in the HURST territory. THE RIGHT CORONARY ARTERY: This is a dominant vessel, large in caliber, bifurcating into PDA and posterolateral segment branches. The right coronary artery stented segment is patent. In the mid segment, there is a 60-70% stenosis, excentric, at the distal edge of the stent. The rest of the vessel has intimal disease without any evidence of high-grade stenosis. COLLATERALS: Collaterals showed the septal perforators toward the LAD territory. LEFT VENTRICULOGRAM: Left ventriculogram was not performed. HEMODYNAMICS: There was no gradient across the aortic valve. The left ventricular end diastolic pressure [place] 18-20 mmHg. CONCLUSION: 1. Acutely occluded LAD in the mid segment. 2. Critical stenosis in the left circumflex that is chronic. 3. Moderate significant disease in the mid RCA. 4. Appearance of a patent graft to the first obtuse marginal branch with retrograde flow confirmed. RECOMMENDATION: In view of finding anatomy, I recommend proceeding with angioplasty and stenting of the LAD. The procedure as well as the risks and the complications were discussed with the patient who is in full understanding and agreement. MMODL / IJN: [id number] /
[2021-01-27] MEDS ORDERED: FUROSEMIDE 10 MG/ML 2 ML VIAL IV ONE (13:59)
[2021-01-27] MEDS: ARIPiprazole 2 MG TAB PO SCH (14:08)
--- NOTE | 2021-01-27 14:36 | PTCA ---
PERCUTANEOUSTRANS CORORONARY ANGIOGRAPHY Mrs. Leos is a 65-year-old female with known history of coronary artery disease who presented with non ST-segment elevation myocardial infarction, underwent cardiac catheterization and was found to have a totally occluded mid LAD. In view of that, recommendation was made regarding angioplasty and stenting. The procedure as well as the risks and the complications were discussed with the patient who is in full understanding and agreement. PROCEDURE: A 6-Norwegian EBU 3.75 guiding catheter introduced in the system. After cannulating the left main a 0.014 balanced medium weight J-wire with the help of a SuperCross straight microcatheter were successful in crossing the total occlusion. The wire was positioned distally and the microcatheter was removed. Subsequently, 2.5 x 12 mm Trek balloon was advanced and two inflations to 8 atmospheres were done. Following that the balloon was removed and a 3.0 x 23 mm Xience [place] stent was advanced, deployed and post dilated to 16 atmospheres after the last inflation. After appropriate wait the balloon and the guidewire were withdrawn back in the guiding catheter. Images were obtained and repeated. Those images reveal stable successful stenting. At that point, the guiding catheter, the balloon and the guidewire were removed. The sheath was removed. Hemostasis was obtained with deployment of a TR band. There was no immediate complication. Patient was returned to the room in stable condition. Of note, the patient received a total of 9000 units of intravenous heparin throughout the procedure, her HCT was followed and she received oral loading dose of Brilinta. She had no chest discomfort during the procedure. RESULTS: Successful stenting of the mid right LAD with reduction of stenosis from 100% to 0%. RECOMMENDATION: Patient will be continued on aspirin, Brilinta, beta rosanna and angiotensin receptor rosanna. The importance of dual antiplatelet treatment were discussed with the patient and her family who are in full understanding and agreement. Duration of the sedation is 45 minutes. MMODL / IJN: [id number] /
--- NOTE | 2021-01-27 15:06 | ECHOF ---
Referral Reason:mi MEASUREMENTS -------- HEIGHT: 167.6 cm WEIGHT: 117.9 kg BP: Ao Diam: 3.5 cm (2.0 - 3.7) AV Cusp: 1.9 cm (1.5 - 2.6) LA Diam: 3.9 cm (2.7 - 3.8) MV E Wes: 1.00 m/s MV DecT: 311 ms MV A Wes: 1.15 m/s MV E/A Ratio: 0.87 RAP: 5.00 mmHg RVSP: 20.18 mmHg FINDINGS -------- Sinus rhythm. This was a technically difficult study with suboptimal views. Overall left ventricular systolic function is mild-moderately impaired with, an EF between 40 - 45 %. Apical anterior LV wall motion is hypokinetic. Apical lateral LV wall motion is hypokinetic. Apical inferior LV wall motion is hypokinetic. Apical septum LV wall motion is hypokinetic. The RV was not well visualized. The left atrium was not well visualized. The right atrium was not well visualized. Lumason used The aortic valve was not well visualized. The mitral valve was not well visualized. There is trace mitral regurgitation. The tricuspid valve was not well visualized. Trace tricuspid regurgitation present. Right ventric ular systolic pressure is normal at < 35 mmHg. The pulmonic valve was not well visualized. There is no pericardial effusion. CONCLUSIONS -------- 1. This was a technically difficult study with suboptimal views. 2. Overall left ventricular systolic function is mild-moderately impaired with, an EF between 40 - 45 %. 3. Apical anterior LV wall motion is hypokinetic. 4. Apical lateral LV wall motion is hypokinetic. 5. Apical inferior LV wall motion is hypokinetic. 6. Apical septum LV wall motion is hypokinetic. 7. There is trace mitral regurgitation. 8. Trace tricuspid regurgitation present. 9. There is no pericardial effusion. CLOTH NEUTRALIZER: Shivani Elise RDCS
[2021-01-27 15:46] LABS: Glucose,Whole Blood 200 mg/dL (75-99)
[2021-01-27] MEDS: INSULIN ASPART (NovoLOG) 100 UNIT/ML VIAL SQ SCH ×3 (16:03→20:55)
[2021-01-27] MEDS ORDERED: ONDANSETRON 4 MG/2 ML VIAL IVP PRN (16:04)
[2021-01-27 16:58] LABS: Glucose,Whole Blood 197 mg/dL (75-99)
[2021-01-27 20:03] LABS: Glucose,Whole Blood 270 mg/dL (75-99)
[2021-01-27] MEDS: TICAGRELOR 90 MG TAB PO SCH (20:54)
[2021-01-27] MEDS: OXYBUTYNIN CHLORIDE 5 MG TAB PO SCH (20:54)
[2021-01-28 06:20] LABS: Glucose,Whole Blood 123 mg/dL (75-99)
[2021-01-28] MEDS: INSULIN ASPART (NovoLOG) 100 UNIT/ML VIAL SQ SCH ×4 (06:21→20:22)
[2021-01-28] MEDS ORDERED: HEPARIN SODIUM,PORCINE 2,500 UNIT in SODIUM CHLORIDE 0.9% 250 ML IRRIGATION PRN (07:00)
[2021-01-28] MEDS ORDERED: HEPARIN SODIUM,PORCINE 10,000 UNIT in SODIUM CHLORIDE 0.9% 1,000 ML IRRIGATION PRN (07:00)
[2021-01-28 07:51] LABS: Basophils # (A) 0.1 k/uL (0-0.2); Basophils % (A) 1 %; Eosinophils # (A) 0.2 k/uL (0-0.7); Eosinophils % (A) 3 %; HCT 41.7 % (34.0-46.0); HGB 13.8 gm/dL (11.4-16.0); Lymphocytes # (A) 1.7 k/uL (1.0-4.8); Lymphocytes % (A) 21 %; MCH 29.1 pg (25.0-35.0); MCHC 33.2 g/dL (31.0-37.0); MCV 87.7 fL (80.0-100.0); Mean Platelet Volume 8.7; Monocytes # (A) 0.4 k/uL (0-1.0); Monocytes % (A) 5 %; Neutrophils # (A) 5.7 k/uL (1.3-7.7); Neutrophils % (A) 70 %; Platelet Count 168 k/uL (150-450); RBC 4.75 m/uL (3.80-5.40); RDW 14.6 % (11.5-15.5); WBC 8.2 k/uL (3.8-10.6)
[2021-01-28 07:54] LABS: Prothrombin Time 11.1 sec (9.0-12.0)
[2021-01-28 08:03] LABS: Potassium 4.5 mmol/L (3.5-5.1)
[2021-01-28 08:04] LABS: Calcium 9.5 mg/dL (8.4-10.2)
[2021-01-28] MEDS: ISOSORBIDE MONONITRATE ER 30 MG TAB.ER.24H PO SCH (08:25)
[2021-01-28] MEDS: METOPROLOL SUCCINATE (ER) 25 MG TAB.ER.24H PO SCH ×2 (08:25→20:22)
[2021-01-28] MEDS: CHOLECALCIFEROL 25 MCG (1000 IU) TABLET PO SCH (08:25)
[2021-01-28] MEDS: LOSARTAN 50 MG TAB PO SCH (08:26)
[2021-01-28] MEDS: TICAGRELOR 90 MG TAB PO SCH ×2 (08:26→20:22)
[2021-01-28] MEDS: OXYBUTYNIN CHLORIDE 5 MG TAB PO SCH ×2 (08:26→20:22)
[2021-01-28] MEDS: DULoxetine HCL 60 MG CAPSULE.DR PO SCH (08:26)
[2021-01-28] MEDS: ASPIRIN 81 MG PO SCH (08:26)
[2021-01-28] MEDS: ARIPiprazole 2 MG TAB PO SCH (08:26)
[2021-01-28] MEDS: EZETIMIBE 10 MG TAB PO SCH (08:26)
--- NOTE | 2021-01-28 08:36 | P.DS ---
Providers Date of admission: 01/27/21 06:26 Expected date of discharge: 01/28/21 Attending physician: Elliot Dumas Consults: 01/27/21 06:24 Consult Physician Urgent Consulting Provider: Simon Soni Consult Reason/Comments: Acute coronary syndrome Do you want consulting provider notified?: Yes 01/27/21 12:33 Consult Physician Routine Consulting Provider: [facility] Consult Reason/Comments: Post Interventional patient Do you want consulting provider notified?: Already Contacted Primary care physician: Dena Albrecht [facility] Hospital Course: Patient is a pleasant 65-year-old female came in with complaints of chest pressure like sensation was started yesterday constant radiating to both arms. Associated with some lightheadedness mild diaphoresis denied any shortness of breath. Patient had history of CABG and multiple stents in the past. Patient denied any nausea vomiting patient denied any pleuritic chest pain. Patient has mildly elevated troponins with some significant EKG changes in the inferior and lateral leads., T-wave inversions in these leads. Patient was evaluated by cardiology and patient will undergo cardiac catheter physician today. Patient denied any orthopnea or paroxysmal nocturnal dyspnea, palpitations. Patient had congestive heart failure chronic systolic dysfunction with the EF of around 40- 45% from her previous echocardiogram repeat echogram was ordered. 01/28/2021 Patient underwent cardiac catheterization with successful stenting of the mid right LAD, she does have chronic stenosis of the left circumflex and moderate significant disease in the mid RCA, grafting first obtuse marginal branch patent. She is currently on dual antiplatelet therapy with aspirin and Brilinta .Vital signs are stable, saturating above 90% in room air, afebrile. Patient states that she has ALLERGY to statin, as taken Zetia which caused muscle aches, is agreeable to try taking the medication again. 2-D echocardiogram showing LVEF 40-45%. REVIEW OF SYSTEMS: CONSTITUTIONAL: No fever, no malaise, no fatigue. CARDIOVASCULAR: PULMONARY: No shortness of breath, no cough, no hemoptysis. GASTROINTESTINAL: No diarrhea, no nausea, no vomiting, no abdominal pain. NEUROLOGICAL: No headaches, no weakness, no numbness. GENITOURINARY: Denies any burning micturition, frequency, or urgency. The rest of the 14-point review of systems is negative. PHYSICAL EXAMINATION: GENERAL: The patient is alert and oriented x3, not in any acute distress. Obese HEENT: Pupils are round and equally reacting to light. EOMI. No scleral icterus. No conjunctival pallor. Normocephalic, atraumatic. No pharyngeal erythema. No thyromegaly. CARDIOVASCULAR: S1 and S2 present. No murmurs, rubs, or gallops. PULMONARY: Chest is clear to auscultation, no wheezing or crackles. ABDOMEN: Soft, nontender, nondistended, normoactive bowel sounds. No palpable organomegaly. MUSCULOSKELETAL: No joint swelling or deformity. EXTREMITIES: No cyanosis, clubbing, or pedal edema. NEUROLOGICAL: Gross neurological examination did not reveal any focal deficits. SKIN: No rashes. Assessment and plan - acute non-ST elevation myocardial infarction: Status post cardiac catheterization with successful stenting of the LAD. She has chronic stenosis of the left circumflex. She is on dual antiplatelet therapy with aspirin and brilinta. Continue on losartan, metoprolol, Imdur. -Type II diagnosed with us: Hold off metformin patient will be on sliding scale insulin -Hypertension: On metoprolol, losartan, Imdur. -Hyperlipidemia: Patient has ALLERGY to statin, has had that in the past which caused muscle aches, she is agreeable to try this medication again. -diabetic peripheral neuropathy -Significant coronary artery disease with history of CABG and multiple stents in the past -obesity -Congestive heart failure chronic systolic dysfunction without any acute exacerbation. Patient has an AICD in place -Depression Patient can be discharged home if cleared by cardiology. Follow-up with PCP and cardiology in the outpatient setting. Plan - Discharge Summary Discharge Rx Participant: Yes New Discharge Prescriptions: New Ezetimibe [Zetia] 10 mg PO DAILY #30 tab Ticagrelor [Brilinta] 90 mg PO BID #60 tab Nitroglycerin Sl Tabs [Nitrostat] 0.4 mg SUBLINGUAL Q5M PRN #30 tab PRN Reason: Chest Pain Continue Oxybutynin Chloride [Ditropan] 5 mg PO BID Losartan Potassium 50 mg PO DAILY Aspirin 81 mg PO BID chew Cholecalciferol [Vitamin D3 (25 Mcg = 1000 Iu)] 1,000 unit PO DAILY DULoxetine HCL [Cymbalta] 60 mg PO DAILY Fluticasone Nasal [place] [Flonase Nasal [place]] 2 spr EA NOSTRIL BID PRN PRN Reason: Allergy Symptoms Albuterol Sulfate [Ventolin HFA] 2 puff INHALATION RT-Q6H PRN PRN Reason: Shortness Of Breath ARIPiprazole [Abilify] 2 mg PO DAILY Isosorbide Mononitrate ER [Imdur] 30 mg PO DAILY #30 tab.er.24h metFORMIN HCL [Glucophage] 500 mg PO BID #60 tab Metoprolol Succinate (ER) [Toprol XL] 75 mg PO BID Ibuprofen [Motrin] 800 mg PO Q8H PRN PRN Reason: Pain Discharge Medication List Oxybutynin Chloride [Ditropan] 5 mg PO BID 12/25/13 [History] Aspirin 81 mg PO BID chew 04/01/16 [Rx] Losartan Potassium 50 mg PO DAILY 04/01/16 [History] Cholecalciferol [Vitamin D3 (25 Mcg = 1000 Iu)] 1,000 unit PO DAILY 10/22/18 [History] ARIPiprazole [Abilify] 2 mg PO DAILY 10/24/19 [History] Albuterol Sulfate [Ventolin HFA] 2 puff INHALATION RT-Q6H PRN 10/24/19 [History] DULoxetine HCL [Cymbalta] 60 mg PO DAILY 10/24/19 [History] Fluticasone Nasal [place] [Flonase Nasal [place]] 2 spr EA NOSTRIL BID PRN 10/24/19 [History] Isosorbide Mononitrate ER [Imdur] 30 mg PO DAILY #30 tab.er.24h 10/24/19 [Rx] metFORMIN HCL [Glucophage] 500 mg PO BID #60 tab 10/24/19 [Rx] Ibuprofen [Motrin] 800 mg PO Q8H PRN 01/27/21 [History] Metoprolol Succinate (ER) [Toprol XL] 75 mg PO BID 01/27/21 [History] Ezetimibe [Zetia] 10 mg PO DAILY #30 tab 01/28/21 [Rx] Nitroglycerin Sl Tabs [Nitrostat] 0.4 mg SUBLINGUAL Q5M PRN #30 tab 01/28/21 [Rx] Ticagrelor [Brilinta] 90 mg PO BID #60 tab 01/28/21 [Rx] Follow up Appointment(s)/Referral(s): Dena Albrecht DO [Primary Care Provider] - 3 Days (Patient to schedule appointment as office is closed at time of discharge. Ensure the office is aware that this is a follow up from a hospital stay.) Tonny Doty MD [STAFF PHYSICIAN] - 1 Week (Patient to schedule appointment as office is closed at time of discharge. Ensure the office is aware that this is a follow up from a hospital stay and a cardiac catheterization.) Patient Instructions/Handouts: *[facility] - After Heart Catheterization - [employer] T[employer] Instructions Discharge Disposition: HOME SELF-CARE
[2021-01-28] MEDS ORDERED: ASPIRIN 325 MG TAB PO SCH (09:00)
[2021-01-28] MEDS: ALPRAZolam 0.5 MG TAB PO PRN (11:18)
--- NOTE | 2021-01-28 11:18 | PN ---
PROGRESS NOTE INTERVAL HISTORY: Mr. Leos is a 65-year-old female who presented with evidence of non STEMI yesterday and underwent cardiac catheterization and was found to have a totally occluded left anterior descending artery. Underwent stenting of that vessel. She had evidence of moderate to significant disease in the mid RCA distal to the stented segment. She is feeling well this morning. She has no chest pain. No dizziness. No palpitation. She denies any nausea. On the monitor, she is in sinus mechanism. Hemodynamically, she is stable. She had an echocardiogram performed yesterday that revealed an ejection fraction of 40% to 45% with segmental wall motion abnormality. She continues to be on aspirin 81 mg daily, Brilinta 90 mg twice a day, Zetia 10 mg daily, losartan 50 mg daily, isosorbide mononitrate 30 mg daily, metoprolol succinate 75 mg twice a day. PHYSICAL EXAMINATION: VITAL SIGNS: Blood pressure 110/70 with a heart rate in 70s. LUNGS: Clear. HEART: Regular rate and rhythm S1, S2. No S3. No rub. ABDOMEN: Soft and nontender. EXTREMITIES: No edema. Right radial pulse intact. LAB DATA: BUN and creatinine 17 and 0.81, potassium 4.5. IMPRESSION: 1. Status post myocardial infarction and stenting of the totally occluded LAD. 2. Known obstructive disease in the right coronary artery. 3. Status post coronary artery bypass grafting. 4. Severe stenosis in the left circumflex. 5. Hyperlipidemia, intolerant to statin. 6. Hypertension. RECOMMENDATION: From the cardiac standpoint, will continue present therapy. Increase her level of activity. If she remains stable, she may be able to be discharged home tomorrow and follow up with Dr. Doty to make a decision regarding the timing to undergo revascularization of her RCA. MMODL / IJN: [id number] /
[2021-01-28 11:30] LABS: Glucose,Whole Blood 146 mg/dL (75-99)
[2021-01-28 12:17] LABS: Chol/HDL Ratio 4.22; LDL Cholesterol,Calculated 94.8 mg/dL (0.0-131.0); VLDL Calculation 37.2 mg/dL (5.00-40.00)
[2021-01-28] MEDS ORDERED: ACETAMINOPHEN TAB 325 MG TAB PO PRN (16:26)
[2021-01-28 16:49] LABS: Glucose,Whole Blood 152 mg/dL (75-99)
[2021-01-28 19:52] LABS: Glucose,Whole Blood 181 mg/dL (75-99)
[2021-01-28] MEDS ORDERED: HYDROcodone/APAP 5-325MG 1 EACH TAB PO PRN (21:26)
[2021-01-29 05:39] LABS: Glucose,Whole Blood 130 mg/dL (75-99)
[2021-01-29] MEDS: INSULIN ASPART (NovoLOG) 100 UNIT/ML VIAL SQ SCH (05:41)
[2021-01-29 08:03] LABS: African American GFR (CKD) >90 (>60 ml/min/1.73 sqM); Anion Gap 7 mmol/L; Blood Urea Nitrogen 17 mg/dL (7-17); Calcium 9.9 mg/dL (8.4-10.2); Carbon Dioxide 23 mmol/L (22-30); Chloride 108 mmol/L (98-107); Glucose 147 mg/dL (74-99); Non-African American GFR(CKD) >90 (>60 ml/min/1.73 sqM); Potassium 4.5 mmol/L (3.5-5.1); Sodium 138 mmol/L (137-145)
[2021-01-29] MEDS: DULoxetine HCL 60 MG CAPSULE.DR PO SCH (08:46)
[2021-01-29] MEDS: ASPIRIN 81 MG PO SCH (08:46)
[2021-01-29] MEDS: LOSARTAN 50 MG TAB PO SCH (08:46)
[2021-01-29] MEDS: ISOSORBIDE MONONITRATE ER 30 MG TAB.ER.24H PO SCH (08:46)
[2021-01-29] MEDS: EZETIMIBE 10 MG TAB PO SCH (08:46)
[2021-01-29] MEDS: ARIPiprazole 2 MG TAB PO SCH (08:46)
[2021-01-29] MEDS: OXYBUTYNIN CHLORIDE 5 MG TAB PO SCH (08:46)
[2021-01-29] MEDS: METOPROLOL SUCCINATE (ER) 25 MG TAB.ER.24H PO SCH (08:46)
[2021-01-29] MEDS: CHOLECALCIFEROL 25 MCG (1000 IU) TABLET PO SCH (08:46)
[2021-01-29] MEDS: TICAGRELOR 90 MG TAB PO SCH (08:46)
[2021-01-29 08:51] VITALS: BP 125/61; PULSE 68; RESP 18; TEMP 98.4
[2021-01-29 12:01] VITALS: BMI 41.8
--- NOTE | 2021-01-31 13:09 | P.DS ---
Providers Date of admission: 01/27/21 06:26 Expected date of discharge: 01/29/21 Attending physician: Romel Mcnamara MD Consults: 01/27/21 06:24 Consult Physician Urgent Consulting Provider: Simon Soni Consult Reason/Comments: Acute coronary syndrome Do you want consulting provider notified?: Yes 01/27/21 12:33 Consult Physician Routine Consulting Provider: [facility] Consult Reason/Comments: Post Interventional patient Do you want consulting provider notified?: Already Contacted Primary care physician: Dena Albrecht Hospital Course: Final Diagnoses: Acute NSTEMI, S/P cardiac catheterization with successful stenting of LAD. EF 40-45% with segmental wall motion abnormality No obstructive disease of the RCA Chronic left circumflex stenosis CAD with history of CABG AICD Hypertension Hyperlipidemia, intolerant to statin Diabetes mellitus type 2, A1c 10.7 on 10/24/2019. Repeat A1c in clinic. Hospital course this is a 65-year-old female admitted with chest pain and multiple other medical issues. Evaluated by cardiology, underwent cardiac catheterization with successful stenting of the LAD. Tolerated procedure well. Denies chest pain, palpitations or shortness of breath. Cleared by cardiology for discharge. Patient will be discharged home today in a stable condition with guarded prognosis. Gen: Morbidly obese,A & O 3 sitting up in bed, no acute distress. NECK: Supple. No JVD. LUNGS: Clear to auscultation. No wheezes or rhonchi. HEART: Regular rate and rhythm. No murmur. Distant heart sounds. ABDOMEN: Soft. Bowel sounds are present. No masses. No tenderness. EXTREMITIES: No pedal edema. No calf tenderness. NEUROLOGICAL:Cranial nerves 2 through 12 are grossly intact. The impression and plan of care has been dictated as directed. : I performed a history and examination of this patient, discussed the same with the dictator. I agree with the dictator's note ,documented as a scribe. Any additional findings or plans will be noted. Patient Condition at Discharge: Stable Plan - Discharge Summary Discharge Rx Participant: Yes New Discharge Prescriptions: New Ezetimibe [Zetia] 10 mg PO DAILY #30 tab Ticagrelor [Brilinta] 90 mg PO BID #60 tab Nitroglycerin Sl Tabs [Nitrostat] 0.4 mg SUBLINGUAL Q5M PRN #30 tab PRN Reason: Chest Pain Continue Oxybutynin Chloride [Ditropan] 5 mg PO BID Losartan Potassium 50 mg PO DAILY Aspirin 81 mg PO BID chew Cholecalciferol [Vitamin D3 (25 Mcg = 1000 Iu)] 1,000 unit PO DAILY DULoxetine HCL [Cymbalta] 60 mg PO DAILY Fluticasone Nasal [place] [Flonase Nasal [place]] 2 spr EA NOSTRIL BID PRN PRN Reason: Allergy Symptoms Albuterol Sulfate [Ventolin HFA] 2 puff INHALATION RT-Q6H PRN PRN Reason: Shortness Of Breath ARIPiprazole [Abilify] 2 mg PO DAILY Isosorbide Mononitrate ER [Imdur] 30 mg PO DAILY #30 tab.er.24h metFORMIN HCL [Glucophage] 500 mg PO BID #60 tab Metoprolol Succinate (ER) [Toprol XL] 75 mg PO BID Ibuprofen [Motrin] 800 mg PO Q8H PRN PRN Reason: Pain Discharge Medication List Oxybutynin Chloride [Ditropan] 5 mg PO BID 12/25/13 [History] Aspirin 81 mg PO BID chew 04/01/16 [Rx] Losartan Potassium 50 mg PO DAILY 04/01/16 [History] Cholecalciferol [Vitamin D3 (25 Mcg = 1000 Iu)] 1,000 unit PO DAILY 10/22/18 [History] ARIPiprazole [Abilify] 2 mg PO DAILY 10/24/19 [History] Albuterol Sulfate [Ventolin HFA] 2 puff INHALATION RT-Q6H PRN 10/24/19 [History] DULoxetine HCL [Cymbalta] 60 mg PO DAILY 10/24/19 [History] Fluticasone Nasal [place] [Flonase Nasal [place]] 2 spr EA NOSTRIL BID PRN 10/24/19 [History] Isosorbide Mononitrate ER [Imdur] 30 mg PO DAILY #30 tab.er.24h 10/24/19 [Rx] metFORMIN HCL [Glucophage] 500 mg PO BID #60 tab 10/24/19 [Rx] Ibuprofen [Motrin] 800 mg PO Q8H PRN 01/27/21 [History] Metoprolol Succinate (ER) [Toprol XL] 75 mg PO BID 01/27/21 [History] Ezetimibe [Zetia] 10 mg PO DAILY #30 tab 01/28/21 [Rx] Nitroglycerin Sl Tabs [Nitrostat] 0.4 mg SUBLINGUAL Q5M PRN #30 tab 01/28/21 [Rx] Ticagrelor [Brilinta] 90 mg PO BID #60 tab 01/28/21 [Rx] Follow up Appointment(s)/Referral(s): Dena Albrecht DO [Primary Care Provider] - 01/31/21 2:00 pm (with angelique) Tonny Doty MD [STAFF PHYSICIAN] - 02/02/21 9:15 am () Patient Instructions/Handouts: *[facility] - After Heart Catheterization - [employer] Machine Helper Instructions, Acute Coronary Syndrome (DC) Discharge Disposition: HOME SELF-CARE
== END 2021-01-29 10:49 | disposition home or self-care (01) | DRG 247 ==
LOC: EC 03:31 → 3SCARD 06:26
PROVIDERS: ADMIT Family Medicine; ATTEND Family Medicine
PROC: B2181ZZ Fluoroscopy of Left Internal Mammary Bypass Graft using Low Osmolar Contrast (ICD-10-PCS; principal; 2021-01-27 10:44)
PROC: B2111ZZ Fluoroscopy of Multiple Coronary Arteries using Low Osmolar Contrast (ICD-10-PCS; principal; 2021-01-27 10:44)
PROC: 4A023N7 Measurement of Cardiac Sampling and Pressure, Left Heart, Percutaneous Approach (ICD-10-PCS; principal; 2021-01-27 10:44)
PROC: 027034Z Dilation of Coronary Artery, One Artery with Drug-eluting Intraluminal Device, Percutaneous Approach (ICD-10-PCS; principal; 2021-01-27 10:44)
DX: I21.4 Non-ST elevation (NSTEMI) myocardial infarction (principal); I50.22 Chronic systolic (congestive) heart failure; I25.810 Atherosclerosis of coronary artery bypass graft(s) without angina pectoris; Z68.41 Body mass index [BMI] 40.0-44.9, adult; I11.0 Hypertensive heart disease with heart failure; E11.42 Type 2 diabetes mellitus with diabetic polyneuropathy; I25.82 Chronic total occlusion of coronary artery; M06.9 Rheumatoid arthritis, unspecified; J44.9 Chronic obstructive pulmonary disease, unspecified; I48.91 Unspecified atrial fibrillation; I25.10 Atherosclerotic heart disease of native coronary artery without angina pectoris; E66.9 Obesity, unspecified; I25.5 Ischemic cardiomyopathy; E78.5 Hyperlipidemia, unspecified; I25.2 Old myocardial infarction; G47.30 Sleep apnea, unspecified; F32.9 Major depressive disorder, single episode, unspecified; F41.9 Anxiety disorder, unspecified; L30.9 Dermatitis, unspecified; M54.2 Cervicalgia; G56.01 Carpal tunnel syndrome, right upper limb; M19.90 Unspecified osteoarthritis, unspecified site; Z79.82 Long term (current) use of aspirin; Z79.84 Long term (current) use of oral hypoglycemic drugs; Z79.899 Other long term (current) drug therapy; Z95.810 Presence of automatic (implantable) cardiac defibrillator; Z95.1 Presence of aortocoronary bypass graft; Z95.5 Presence of coronary angioplasty implant and graft; Z87.39 Personal history of other diseases of the musculoskeletal system and connective tissue; Z87.19 Personal history of other diseases of the digestive system; Z90.49 Acquired absence of other specified parts of digestive tract; Z98.891 History of uterine scar from previous surgery; Z98.890 Other specified postprocedural states; Z71.3 Dietary counseling and surveillance; Z88.8 Allergy status to other drugs, medicaments and biological substances; Z82.49 Family history of ischemic heart disease and other diseases of the circulatory system; Z80.3 Family history of malignant neoplasm of breast
CPT/HCPCS: 36415; 71046; 80048; 80053; 80061; 83735; 84484; 85025; 85610; 85730; 93005; 93306; 93459; 94640; 96374; 96375; 99285

== ENCOUNTER 2021-04-15 11:38 | Inpatient (IN) | payer MEDICARE ==
[2021-04-15] MEDS ORDERED: ASPIRIN 81 MG PO STA (12:19)
[2021-04-15] MEDS ORDERED: NITROGLYCERIN SL TABS 0.4 MG TAB SUBLINGUAL STA (12:19)
[2021-04-15] MEDS ORDERED: NITROGLYCERIN OINT 1 INCH/GM PACKET TOPICAL STA (12:20)
[2021-04-15] MEDS ORDERED: ONDANSETRON 4 MG/2 ML VIAL IVP STA (12:23)
--- NOTE | 2021-04-15 12:25 | ED ---
General Adult HPI - General Chief complaint: Chest Pain Stated complaint: Chest pain Time Seen by Provider: 04/15/21 11:51 Source: patient, RN notes reviewed Mode of arrival: ambulatory Limitations: no limitations - History of Present Illness Initial comments: Patient is a pleasant [age]-year-old female presenting to the emergency department with chest discomfort. Onset of symptoms was running half an hour ago. Discomfort is 8 or 9/10. Discomfort feels like pressure left upper chest without radiation. Patient does have mild nausea. Patient was sweaty earlier. No dyspnea. Patient does have history of similar symptoms a couple times previously associated with heart disease. Patient does have history of previous myocardial infarction as well as stent placement. No leg pain or leg swelling. - Related Data Home Medications Medication Instructions Recorded Confirmed Oxybutynin Chloride [Ditropan] 5 mg PO BID 12/25/13 04/15/21 Losartan Potassium 50 mg PO DAILY 04/01/16 04/15/21 Cholecalciferol [Vitamin D3 (25 1,000 unit PO DAILY 10/22/18 04/15/21 Mcg = 1000 Iu)] ARIPiprazole [Abilify] 2 mg PO DAILY 10/24/19 04/15/21 Albuterol Sulfate [Ventolin HFA] 2 puff INHALATION RT-Q6H PRN 10/24/19 04/15/21 DULoxetine HCL [Cymbalta] 60 mg PO DAILY 10/24/19 04/15/21 Ibuprofen [Motrin] 800 mg PO Q8H PRN 01/27/21 04/15/21 Metoprolol Succinate (ER) [Toprol 75 mg PO BID 01/27/21 04/15/21 XL] Ascorbic Acid [Vitamin C] 1,000 mg PO DAILY 04/15/21 04/15/21 Biotin 10,000 mcg PO DAILY 04/15/21 04/15/21 Cyclobenzaprine [Flexeril] 10 mg PO HS 04/15/21 04/15/21 Isosorbide Mononitrate 20 mg PO DAILY 04/15/21 04/15/21 Rosuvastatin Calcium [Crestor] 5 mg PO MOTH 04/15/21 04/15/21 metFORMIN HCL [Glucophage] 500 mg PO TID 04/15/21 04/15/21 Previous Rx's Medication Instructions Recorded Nitroglycerin Sl Tabs [Nitrostat] 0.4 mg SUBLINGUAL Q5M PRN #30 tab 01/28/21 Allergies Allergy/AdvReac Type Severity Reaction Status Date / Time clopidogrel bisulfate Allergy Rash/Hives Verified 04/15/21 12:04 [From Plavix] atorvastatin calcium AdvReac Severe Verified 04/15/21 12:04 [From Lipitor] muscle pain ezetimibe [From Zetia] AdvReac Verified 04/15/21 12:39 simvastatin [From Zocor] AdvReac Severe Verified 04/15/21 12:04 muscle pain Review of Systems ROS Statement: Those systems with pertinent positive or pertinent negative responses have been documented in the HPI. ROS Other: All systems not noted in ROS Statement are negative. Constitutional: Denies: fever Eyes: Denies: eye pain ENT: Denies: ear pain Respiratory: Denies: cough, dyspnea Cardiovascular: Reports: chest pain Endocrine: Denies: fatigue Gastrointestinal: Reports: nausea. Denies: abdominal pain, vomiting Genitourinary: Denies: dysuria Musculoskeletal: Denies: back pain Skin: Denies: rash Neurological: Denies: weakness Past Medical History Past Medical History: Atrial Fibrillation, Coronary Artery Disease (CAD), Heart Failure, COPD, Hyperlipidemia, Hypertension, Myocardial Infarction (MS), Osteoarthritis (OA), Rheumatoid Arthritis (RA), Sleep Apnea/CPAP/BIPAP Additional Past Medical History / Comment(s): Heart Murmur, since CABG-L arm larger than right, Back & Cervical pain., [place]yer carpal tunnel syndrome ., C-Pap machine., Hx of colon polyps, Eczema. Last Myocardial Infarction Date:: 1999 History of Any Multi-Drug Resistant Organisms: None Reported Past Surgical History: AICD, Appendectomy, Section, Cholecystectomy, Coronary Bypass/CABG, Heart Catheterization, Heart Catheterization With Stent, Pacemaker Additional Past Surgical History / Comment(s): Multiple cardiac stents-4 of them, 2000 CABG 2 vessel, L carpal tunnel, D&C, colonoscopy. [employer] AICD Past Anesthesia/Blood Transfusion Reactions: Previous Problems w/ Anesthesia, Motion Sickness Additional Past Anesthesia/Blood Transfusion Reaction / Comment(s): WOKE UP DURING PROCEDURE Date of Last Stent Placement:: 2009 Type of Cardiac Device: Permanent Pacemaker, AICD Device Placement Date:: 05/2014 Past Psychological History: Anxiety, Depression Smoking Status: Never smoker Past Alcohol Use History: Rare Past Drug Use History: None Reported - Past Family History Mother Family Medical History: Hypertension, Myocardial Infarction (MS) Additional Family Medical History / Comment(s): Mother of a MS at the age o f 63 yrs. Sister(s) Family Medical History: Cancer Additional Family Medical History / Comment(s): Breast Cancer Father Family Medical History: Coronary Artery Disease (CAD), Hypertension, Myocardial Infarction (MS) Additional Family Medical History / Comment(s): Father of a MS at the age of 50 yrs. General Exam Limitations: no limitations General appearance: alert, in no apparent distress Head exam: Present: normocephalic Eye exam: Present: normal appearance ENT exam: Present: normal oropharynx Neck exam: Present: normal inspection Respiratory exam: Present: normal lung sounds bilaterally Cardiovascular Exam: Present: regular rate, normal rhythm Expanded Peripheral pulses: 2+: Radial (R), Radial (L), Dorsalis Pedis (R), Dorsalis Pedis (L) GI/Abdominal exam: Present: soft. Absent: tenderness Extremities exam: Present: normal inspection. Absent: pedal edema, calf tenderness Neurological exam: Present: alert Psychiatric exam: Present: normal affect, normal mood Skin exam: Present: normal color Course Vital Signs 04/15/21 12:02 Temperature 97.7 F Pulse Rate 69 Respiratory 18 Rate Blood Pressure 143/76 O2 Sat by Pulse 95 Oximetry EKG Findings - EKG Comments: EKG Findings:: Normal sinus rhythm with a rate of 69. DE 180. QRS 110. QT 404. QTC 432. Left axis. Septal Q waves. EKG similar to EKG dated January 28 Medical Decision Making - Medical Decision Making Patient reevaluated with only mild improvement. Patient updated on results and plan. Case was discussed with Dr. Napier who did evaluate patient and will admit covering for Dr. Albrecht. - Lab Data Result diagrams: 04/15/21 13:09 04/15/21 13:09 Lab Results 04/15/21 04/15/21 04/15/21 Range/Units 13:09 13:09 13:09 WBC 7.7 (3.8-10.6) k/uL RBC 4.71 (3.80-5.40) m/uL Hgb 14.3 (11.4-16.0) gm/dL Hct 40.3 (34.0-46.0) % MCV 85.6 (80.0-100.0) fL MCH 30.3 (25.0-35.0) pg MCHC 35.4 (31.0-37.0) g/dL RDW 14.1 (11.5-15.5) % Plt Count 173 (150-450) k/uL MPV 9.3 Neutrophils % 70 % Lymphocytes % 21 % Monocytes % 4 % Eosinophils % 3 % Basophils % 1 % Neutrophils # 5.4 (1.3-7.7) k/uL Lymphocytes # 1.6 (1.0-4.8) k/uL Monocytes # 0.3 (0-1.0) k/uL Eosinophils # 0.3 (0-0.7) k/uL Basophils # 0.0 (0-0.2) k/uL PT 10.0 (9.0-12.0) sec INR 0.9 (<1.2) APTT 22.4 (22.0-30.0) sec Sodium 137 (137-145) mmol/L Potassium 4.8 (3.5-5.1) mmol/L Chloride 103 (98-107) mmol/L Carbon Dioxide 26 (22-30) mmol/L Anion Gap 8 mmol/L BUN 23 H (7-17) mg/dL Creatinine 0.80 (0.52-1.04) mg/dL Est GFR (CKD-EPI)AfAm >90 (>60 ml/min/1.73 sqM) Est GFR (CKD-EPI)NonAf 78 (>60 ml/min/1.73 sqM) Glucose 147 H (74-99) mg/dL Calcium 10.2 (8.4-10.2) mg/dL Magnesium 1.8 (1.6-2.3) mg/dL Total Bilirubin 0.6 (0.2-1.3) mg/dL AST 26 (14-36) U/L ALT 24 (4-34) U/L Alkaline Phosphatase 120 (38-126) U/L Troponin I (0.000-0.034) ng/mL Total Protein 7.1 (6.3-8.2) g/dL Albumin 4.3 (3.5-5.0) g/dL 04/15/21 Range/Units 13:09 WBC (3.8-10.6) k/uL RBC (3.80-5.40) m/uL Hgb (11.4-16.0) gm/dL Hct (34.0-46.0) % MCV (80.0-100.0) fL MCH (25.0-35.0) pg MCHC (31.0-37.0) g/dL RDW (11.5-15.5) % Plt Count (150-450) k/uL MPV Neutrophils % % Lymphocytes % % Monocytes % % Eosinophils % % Basophils % % Neutrophils # (1.3-7.7) k/uL Lymphocytes # (1.0-4.8) k/uL Monocytes # (0-1.0) k/uL Eosinophils # (0-0.7) k/uL Basophils # (0-0.2) k/uL PT (9.0-12.0) sec INR (<1.2) APTT (22.0-30.0) sec Sodium (137-145) mmol/L Potassium (3.5-5.1) mmol/L Chloride (98-107) mmol/L Carbon Dioxide (22-30) mmol/L Anion Gap mmol/L BUN (7-17) mg/dL Creatinine (0.52-1.04) mg/dL Est GFR (CKD-EPI)AfAm (>60 ml/min/1.73 sqM) Est GFR (CKD-EPI)NonAf (>60 ml/min/1.73 sqM) Glucose (74-99) mg/dL Calcium (8.4-10.2) mg/dL Magnesium (1.6-2.3) mg/dL Total Bilirubin (0.2-1.3) mg/dL AST (14-36) U/L ALT (4-34) U/L Alkaline Phosphatase (38-126) U/L Troponin I <0.012 (0.000-0.034) ng/mL Total Protein (6.3-8.2) g/dL Albumin (3.5-5.0) g/dL - Radiology Data Radiology results: image reviewed (Chest x-ray shows no acute process) Disposition Clinical Impression: Chest pain Disposition: ADMITTED IP TO THIS [facility] Referrals: Dena Albrecht DO [Primary Care Provider] - 1-2 days Decision Time: 14:08
[2021-04-15 13:17] LABS: Basophils % (A) 1 %; Eosinophils # (A) 0.3 k/uL (0-0.7); Eosinophils % (A) 3 %; HCT 40.3 % (34.0-46.0); HGB 14.3 gm/dL (11.4-16.0); Lymphocytes # (A) 1.6 k/uL (1.0-4.8); Lymphocytes % (A) 21 %; MCH 30.3 pg (25.0-35.0); MCHC 35.4 g/dL (31.0-37.0); MCV 85.6 fL (80.0-100.0); Mean Platelet Volume 9.3; Monocytes # (A) 0.3 k/uL (0-1.0); Monocytes % (A) 4 %; Neutrophils # (A) 5.4 k/uL (1.3-7.7); Neutrophils % (A) 70 %; Platelet Count 173 k/uL (150-450); RBC 4.71 m/uL (3.80-5.40); RDW 14.1 % (11.5-15.5); WBC 7.7 k/uL (3.8-10.6)
[2021-04-15 13:30] LABS: ALT 24 U/L (4-34); AST 26 U/L (14-36); African American GFR (CKD) >90 (>60 ml/min/1.73 sqM); Albumin 4.3 g/dL (3.5-5.0); Alkaline Phosphatase 120 U/L (38-126); Anion Gap 8 mmol/L; Blood Urea Nitrogen 23 mg/dL (7-17); Calcium 10.2 mg/dL (8.4-10.2); Carbon Dioxide 26 mmol/L (22-30); Chloride 103 mmol/L (98-107); Glucose 147 mg/dL (74-99); Magnesium 1.8 mg/dL (1.6-2.3); Non-African American GFR(CKD) 78 (>60 ml/min/1.73 sqM); Potassium 4.8 mmol/L (3.5-5.1); Sodium 137 mmol/L (137-145); Total Bilirubin 0.6 mg/dL (0.2-1.3); Total Protein 7.1 g/dL (6.3-8.2)
--- NOTE | 2021-04-15 13:34 | XR ---
EXAMINATION TYPE: XR chest 2V DATE OF EXAM: 04/15/2021 COMPARISON: Chest x-ray 01/27/2021 HISTORY: Chest pain TECHNIQUE: Frontal and lateral views of the chest are obtained. FINDINGS: There is no focal air space opacity, pleural effusion, or pneumothorax seen. Patient is p ost median sternotomy. Generators present in left pectoral region, there are leads in right atrium an d ventricle. The cardiac silhouette size is stable, enlarged. There are overlying leads. The osseous structures are intact, arthropathy noted in the shoulders.. IMPRESSION: No acute cardiopulmonary process.
[2021-04-15 13:40] LABS: INR 0.9 (<1.2); Partial Thromboplastin Time 22.4 sec (22.0-30.0)
[2021-04-15] MEDS ORDERED: MORPHINE SULFATE 4 MG/ML SYRINGE IVP STA (14:08)
[2021-04-15] MEDS ORDERED: NITROGLYCERIN SL TABS 0.4 MG TAB SUBLINGUAL PRN (14:09)
[2021-04-15] MEDS: NITROGLYCERIN OINT 1 INCH/GM PACKET TOPICAL SCH (18:25)
--- NOTE | 2021-04-15 19:32 | HP ---
HISTORY AND PHYSICAL DATE OF SERVICE: 04/15/2021 HISTORY OF PRESENT ILLNESS: This is a 65-year-old woman with a past medical history of multiple medical problems including atrial fibrillation, CAD, COPD, hypertension, hyperlipidemia, history of rheumatoid arthritis, sleep apnea, history of AICD, history of CAD, CABG stent, being followed by Dr. Dena Albrecht in the outpatient setting had stenting of the mid right LAD recently by Dr. Soni. Currently the patient complains of chest pain which was felt across the chest and which was heavy in character and the patient came to [facility] and was admitted for further evaluation and treatment. There is no history of fever, rigors. No history of headache, loss of consciousness or seizures. Troponins are negative. EKG showed nonspecific changes including non-progression R- wave in the anterior leads. There is no history of fever, rigors, chills at this time. PAST MEDICAL HISTORY: History of atrial fibrillation, CAD, COPD, CHF, hypertension, hyperlipidemia, history of myocardial infarction, history of rheumatoid arthritis, sleep apnea. MEDICATIONS: Prior to admission: Home medications are: Crestor, vitamin C, biotin, isosorbide nitrate, Flexeril, Glucophage, Ditropan, Nitrostat, Toprol-XL, Cymbalta, vitamin D3, Abilify, Motrin, Ventolin HFA, doses reviewed. ALLERGIES: PLAVIX, LIPITOR, ZETIA, ZOCOR. FAMILY HISTORY: History of CAD, hypertension, myocardial infarction. SOCIAL HISTORY: Previous history of smoking. No history of alcohol intake. REVIEW OF SYSTEMS: ENT: No diminished hearing. No diminished vision. CARDIOVASCULAR system: As mentioned earlier. RESPIRATORY: As mentioned earlier. GI: No nausea or vomiting. no dysuria. NERVOUS SYSTEM: No numbness, weakness. ALLERGY/IMMUNOLOGY: No asthma or hayfever. MUSCULOSKELETAL as mentioned earlier. HEMATOLOGY/ONCOLOGY: No history of anemia. ENDOCRINE: History of diabetes. Hypothyroidism. CONSTITUTIONAL: As mentioned earlier. RHEUMATOLOGY: Negative. DERMATOLOGY: Negative. PSYCHIATRIC: As mentioned earlier. PHYSICAL EXAMINATION: Alert and oriented x3. Pulse is 72. Blood pressure 126/88, respiration 18, temperature 97.7, pulse ox 99 percent on room air. HEENT: Conjunctivae normal. NECK: No JVD. CARDIOVASCULAR: S1, S2 muffled. RESPIRATION: Breath sounds diminished in the bases. No rhonchi. No crackles. ABDOMEN: Soft, nontender. No mass palpable. LEGS: No edema. No swelling. NERVOUS SYSTEM: Higher functions as mentioned earlier. Moves all four limbs. No focal motor or sensory deficits. LYMPHATICS: No lymph nodes palpable in the neck, axillae or groin. SKIN: No ulcer, no rashes and no bleeding. JOINTS: No active deforming arthropathy. LABORATORY DATA: CBC within normal limits. BMP, CMP glucose 147. ASSESSMENT: 1. Chest pain, possible unstable angina. 2. History of recent RCA stenting. 3. History of atrial fibrillation. 4. History of CAD, CABG stenting. 5. Chronic obstructive pulmonary disease history. 6. History of congestive heart failure. 7. Hypertension. 8. Hyperlipidemia. 9. History of myocardial infarction. 10.History of rheumatoid arthritis. 11.History of sleep apnea. 12.History of AICD. 13.History of appendectomy. 14.History of section. 15.Obesity with body mass of 40.4. RECOMMENDATIONS AND DISCUSSION: This 65-year-old woman who presented with multiple complex medical issues, we will monitor the patient closely, continue the current management and symptomatic treatment. Otherwise at this time, I recommend resume the home medications and unstable angina protocol. Otherwise, IV heparin and we will continue to follow closely with Cardiology. Prognosis guarded. Dr. Mcnamara will follow tomorrow. MMVEROL / ANDREWSN: [id number] /
[2021-04-15] MEDS ORDERED: HEPARIN SODIUM 1,000 UN/ML (10ML VL) IV ONE (22:05)
[2021-04-15] MEDS ORDERED: HEPARIN SODIUM 1,000 UN/ML (10ML VL) IV PRN (22:05)
[2021-04-15] MEDS ORDERED: HEPARIN SOD,PORK IN 0.45% NACL 25,000 UNIT in 0.45% NACL 1 250ML.BAG IV SCH (22:15)
[2021-04-16] MEDS: NITROGLYCERIN OINT 1 INCH/GM PACKET TOPICAL SCH ×3 (00:39→13:46)
[2021-04-16 05:45] LABS: Basophils # (A) 0.1 k/uL (0-0.2); Basophils % (A) 1 %; Eosinophils # (A) 0.3 k/uL (0-0.7); Eosinophils % (A) 4 %; HCT 39.3 % (34.0-46.0); HGB 12.8 gm/dL (11.4-16.0); Lymphocytes # (A) 2.5 k/uL (1.0-4.8); Lymphocytes % (A) 32 %; MCH 29.2 pg (25.0-35.0); MCHC 32.6 g/dL (31.0-37.0); MCV 89.5 fL (80.0-100.0); Mean Platelet Volume 9.3; Monocytes # (A) 0.3 k/uL (0-1.0); Monocytes % (A) 4 %; Neutrophils # (A) 4.4 k/uL (1.3-7.7); Neutrophils % (A) 58 %; Platelet Count 175 k/uL (150-450); RBC 4.39 m/uL (3.80-5.40); RDW 13.8 % (11.5-15.5); WBC 7.7 k/uL (3.8-10.6)
[2021-04-16 05:56] LABS: Partial Thromboplastin Time 31.3 sec (22.0-30.0); Prothrombin Time 10.4 sec (9.0-12.0)
[2021-04-16] MEDS ORDERED: ASPIRIN 325 MG TAB PO SCH (09:00)
[2021-04-16] MEDS ORDERED: ATORVASTATIN 80 MG TAB PO STA (09:44)
[2021-04-16] MEDS ORDERED: NITROGLYCERIN SL TABS 0.4 MG TAB SUBLINGUAL PRN (09:44)
[2021-04-16] MEDS ORDERED: SODIUM CHLORIDE 0.9% 1,000 ML in EMPTY BAG 1 BAG IV SCH (09:45)
[2021-04-16 10:17] LABS: Chol/HDL Ratio 3.85 Ratio; HDL Cholesterol 46.8 mg/dL (40.00-60.00); LDL Cholesterol,Calculated 91.8 mg/dL (0.0-131.0); VLDL Calculation 41.4 mg/dL (5.00-40.00)
[2021-04-16] MEDS: PRASUGREL 10 MG TAB PO SCH (10:58)
[2021-04-16] MEDS ORDERED: fentaNYL (PF) 50 MCG/ML 2 ML AMP ONE (11:43)
[2021-04-16] MEDS ORDERED: IV FLUID CONTINUATION 500 ML IV ONE (11:46)
[2021-04-16] MEDS ORDERED: fentaNYL (PF) 50 MCG/ML 2 ML AMP IV ONE (11:54)
[2021-04-16] MEDS ORDERED: MIDAZOLAM 2 MG/2 ML VIAL IV ONE (11:55)
[2021-04-16] MEDS ORDERED: LIDOCAINE 1% INJ 10MG/ML (20 ML MDV) SQ ONE (11:55)
--- NOTE | 2021-04-16 12:00 | ECHOF ---
Referral Reason: MEASUREMENTS -------- HEIGHT: 165.1 cm WEIGHT: 114.8 kg BP: RVIDd: 3.3 cm (< 3.3) IVSd: 1.2 cm (0.6 - 1.1) LVIDd: 5.1 cm (3.9 - 5.3) LVPWd: 1.5 cm (0.6 - 1.1) IVSs: 1.4 cm LVIDs: 4.9 cm LVPWs: 1.7 cm MV E Wes: 0.55 m/s MV DecT: 238 ms MV A Wes: 0.62 m/s MV E/A Ratio: 0.88 FINDINGS -------- Sinus rhythm. Morbid Obesity This was a techncally difficult study with suboptimal views, , Lumason utilized for enhancement of images. The left ventricular size is normal. Left ventricular wall thickness is normal. Overall left vent ricular systolic function is mildly impaired with, an EF between 45 - 50 %. Apical anterior LV wall motion is hypokinetic. Apical septum LV wall motion is hypokinetic. The right ventricle is normal in size. The left atrial size is normal. The right atrial size is normal. The aortic valve was not well visualized. The mitral valve was not well visualized. The tricuspid valve was not well visualized. Unable to estimate RVSP due to inadequate TR jet spect ral doppler profile. The pulmonic valve was not well visualized. There is no pericardial effusion. CONCLUSIONS -------- 1. Morbid Obesity 2. This was a techncally difficult study with suboptimal views, , Lumason utilized for enhancement of images. 3. The left ventricular size is normal. 4. Left ventricular wall thickness is normal. 5. Apical anterior LV wall motion is hypokinetic. 6. Apical septum LV wall motion is hypokinetic. 7. The right ventricle is normal in size. 8. The left atrial size is normal. 9. The right atrial size is normal. 10. The aortic valve was not well visualized. 11. The mitral valve was not well visualized. 12. The tricuspid valve was not well visualized. 13. Unable to estimate RVSP due to inadequate TR jet spectral doppler profile. 14. The pulmonic valve was not well visualized. 15. There is no pericardial effusion. GLASS FINISHER: Nikia Coleman RDCS
[2021-04-16] MEDS ORDERED: IOPAMIDOL-370 125ML BTL INJ ONE (12:16)
[2021-04-16] MEDS ORDERED: NON FORMULARY DRUG (Rosuvastatin Calcium [Crestor] 5 MG Tablet) PO SCH (12:30)
[2021-04-16] MEDS ORDERED: RX INFO: IV CONTRAST WAS GIVEN 1 EACH MISC MISCELLANE PRN (12:31)
[2021-04-16 12:40] LABS: Glucose,Whole Blood 130 mg/dL (75-99)
[2021-04-16] MEDS: INSULIN ASPART (NovoLOG) 100 UNIT/ML VIAL SQ SCH ×3 (12:48→19:59)
--- NOTE | 2021-04-16 14:08 | CONS ---
CONSULTATION CHIEF COMPLAINT: Chest pain. HISTORY OF PRESENT ILLNESS: Dodie is a 65-year-old lady with history of coronary artery disease status post CABG status post prior multivessel angioplasty, who recently had a cath and angioplasty of LAD in January when she presented with non ST-segment elevation [place]. She has history of hypertension and diabetes and dyslipidemia who presented to the hospital complaining of chest pain. She describes her chest pain as precordial chest pressure, moderate intensity that radiates to her back and left arm associated with diaphoresis. She was treated with IV heparin, nitrates, and became chest pain free. At the time of my evaluation this morning, patient appears comfortable at rest, hemodynamically stable and free of symptoms. Her troponins came back elevated at 0.07 and 1. An echocardiogram at last visit showed ischemic cardiomyopathy with moderate to severe LV dysfunction. Given the new onset chest discomfort, elevated troponin, I am advising the patient to undergo cardiac catheterization for further evaluation. EKG shows sinus rhythm, poor R-wave progression and nonspecific ST-T wave changes. PAST MEDICAL HISTORY: Significant for coronary artery disease status post CABG, ischemic cardiomyopathy status post AICD, status post recent angioplasty. CURRENT MEDICATIONS: Include Crestor, vitamin C, Imdur, Flexeril, Glucophage 500 b.i.d., Ditropan, Toprol-XL 75 b.i.d., losartan 50 daily, Cymbalta, Abilify, Motrin, and Ventolin. ALLERGIES: TO SIMVASTATIN, ZETIA, LIPITOR AND PLAVIX. FAMILY HISTORY: Negative for premature coronary artery disease. SOCIAL HISTORY: She denies current smoking. REVIEW OF SYSTEMS: HEENT is unremarkable. CARDIAC as described above. RESPIRATORY negative. GI negative. GENITOURINARY negative. ALLERGY/IMMUNOLOGY: Negative. SKIN negative. MUSCULOSKELETAL exam significant for arthritis. PSYCHOSOCIAL negative. DERM negative. CONSTITUTIONAL negative. ONCOLOGICAL negative. BOTTLE BOOTH ATTENDANT negative. Rest of the system review is not relevant. EXAM: The patient is comfortable at rest. Vital signs are stable. There is no jugular venous distention. Carotid upstroke is diminished. There is no bruit. Chest exam reveals good air entry bilaterally. Heart exam reveals first and second heart sounds. No gallop. No murmur. Abdomen is soft, nontender. Examination of extremities did not reveal any edema. Peripheral pulses are felt. ASSESSMENT: 1. Acute non ST-segment elevation myocardial infarction. 2. Ischemic cardiomyopathy. 3. Coronary artery disease, status post coronary artery bypass grafting. PLAN: Patient will undergo cardiac catheterization for further evaluation. MMODL / IJN: [id number] /
--- NOTE | 2021-04-16 14:28 | CC ---
CARDIAC CATHETERIZATION REPORT INDICATION: Acute non ST-segment elevation MA in a patient with known CAD status post prior bypass status post prior multiple angioplasties including recent angioplasty of the LAD. PROCEDURE NOTE: After obtaining informed consent, left heart catheterization and coronary angiogram were performed via the right femoral artery using standard Cris catheters. The patient tolerated the procedure well without any obvious immediate complications. A femoral angiogram was performed and Angio-Seal will be deployed for hemostasis. Patient had prior bypass surgery and most of her grafts have been closed during the last cardiac catheterization, we could visualize the venous graft to the circumflex coronary artery. FINDINGS: HEMODYNAMICS: Left ventricular end-diastolic pressure is 20 mm. There is no significant gradient across the aortic valve. LEFT VENTRICULOGRAM: Not performed. ANGIOGRAPHIC DATA: LEFT MAIN CORONARY ARTERY: Left main coronary artery is a normal-sized vessel, appears calcified but is free of stenosis. Divides into left anterior descending coronary artery and circumflex coronary artery. The previously stented segment within the LAD appears patent. CIRCUMFLEX CORONARY ARTERY: The circumflex coronary artery shows a 90% stenosis in its midportion. RIGHT CORONARY ARTERY: Right coronary artery is a large dominant vessel that shows a 70- 80 percent stenosis in the mid area. CONCLUSIONS: [place] 3 vessel coronary artery disease with patent stent within the LAD, significant lesions of the circ and right coronary artery which are unchanged from a previous catheterization. PLAN: I reviewed angiographic data with Dr. Soni who performed her LAD angioplasty last time and the plan at this stage is to treat her with optimal medical therapy. The patient's myocardial infarction could be related to plaque rupture. It is important that she takes her antiplatelet agents carefully and I talked to her and I told her that that we will try her on Effient and aspirin at this time. MMODL / IJN: [id number] /
[2021-04-16 16:15] LABS: Glucose,Whole Blood 130 mg/dL (75-99)
[2021-04-16 19:40] LABS: Glucose,Whole Blood 149 mg/dL (75-99)
[2021-04-16] MEDS: METOPROLOL SUCCINATE (ER) 25 MG TAB.ER.24H PO SCH (19:58)
[2021-04-17 04:30] VITALS: TEMP 97.9
[2021-04-17 06:22] LABS: Glucose,Whole Blood 132 mg/dL (75-99)
[2021-04-17] MEDS: INSULIN ASPART (NovoLOG) 100 UNIT/ML VIAL SQ SCH (06:33)
[2021-04-17] MEDS ORDERED: HEPARIN SODIUM,PORCINE 10,000 UNIT in SODIUM CHLORIDE 0.9% 1,000 ML IRRIGATION PRN (07:00)
[2021-04-17] MEDS ORDERED: HEPARIN SODIUM,PORCINE 2,500 UNIT in SODIUM CHLORIDE 0.9% 250 ML IRRIGATION PRN (07:00)
[2021-04-17] MEDS: METOPROLOL SUCCINATE (ER) 25 MG TAB.ER.24H PO SCH (07:49)
[2021-04-17] MEDS: PRASUGREL 10 MG TAB PO SCH (07:50)
[2021-04-17 07:54] VITALS: BP 152/89; PULSE 70; RESP 18
--- NOTE | 2021-04-17 08:22 | P.PN ---
Subjective Progress Note Date: 04/16/21 Principal diagnosis: NSTEMI She is feeling effectively back to her baseline today, no chest pain or shortness of breath since she got nitro and morphine in the ED. She is scheduled for cardiac catheterization today. Objective - Vital Signs Vital signs: Vital Signs Temp 97.9 F 04/17/21 07:53 Pulse 70 04/17/21 07:56 Resp 18 04/17/21 07:56 BP 152/89 04/17/21 07:53 Pulse Ox 93 L 04/17/21 07:53 Intake & Output 04/16/21 04/17/21 04/17/21 18:59 06:59 18:59 Intake Total 770 240 Balance 770 240 Weight 114.4 kg Intake: IV 230 Sodium Chloride 0.9% 1, 150 000 ml In Empty Bag 1 bag @ 1 ML/KG/HR 115 mls/hr IV .Q8H42M [facility] Rx#: [id number] Oral 540 240 Other: Voiding Method Toilet Toilet # Voids 1 1 - Exam General: well developed female in NAD HEENT: mmm CV: RRR, no murmur Lungs: normal effort, clear throughout Neuro: alert and oriented x3, no focal deficit - Labs CBC & Chem 7: 04/16/21 05:19 04/15/21 13:09 Labs: Abnormal Lab Results - Last 24 Hours (Table) 04/16/21 04/16/21 04/16/21 Range/Units 05:19 05:19 12:39 POC Glucose (mg/dL) 130 H (75-99) mg/dL Hemoglobin A1c 6.6 H (4.0-6.0) % Triglycerides 207.00 H (0.00-149.00) mg/dL VLDL Cholesterol, Calc 41.40 H (5.00-40.00) mg/dL 04/16/21 04/16/21 04/17/21 Range/Units 16:14 19:38 06:20 POC Glucose (mg/dL) 130 H 149 H 132 H (75-99) mg/dL Hemoglobin A1c (4.0-6.0) % Triglycerides (0.00-149.00) mg/dL VLDL Cholesterol, Calc (5.00-40.00) mg/dL Assessment and Plan Plan: Plan for cardiac catheterization, optimize medical therapy, continue with ASA, lipitor, losartan
[2021-04-17] MEDS ORDERED: NON FORMULARY DRUG (Rosuvastatin Calcium [Crestor] 5 MG) PO SCH (09:00)
[2021-04-17] MEDS ORDERED: ISOSORBIDE MONONITRATE 20 MG TAB PO SCH (09:00)
[2021-04-17] MEDS ORDERED: ASPIRIN 81 MG PO SCH (09:00)
[2021-04-17] MEDS ORDERED: LOSARTAN 50 MG TAB PO SCH (09:00)
[2021-04-17 09:23] LABS: African American GFR (CKD) >90 (>60 ml/min/1.73 sqM); Anion Gap 14 mmol/L; Blood Urea Nitrogen 14 mg/dL (7-17); Carbon Dioxide 22 mmol/L (22-30); Chloride 99 mmol/L (98-107); Glucose 162 mg/dL (74-99); Magnesium 1.9 mg/dL (1.6-2.3); Non-African American GFR(CKD) >90 (>60 ml/min/1.73 sqM); Sodium 135 mmol/L (137-145)
[2021-04-17 09:35] LABS: Potassium 4.1 mmol/L (3.5-5.1)
--- NOTE | 2021-04-17 11:48 | P.PN ---
Subjective Progress Note Date: 04/17/21 HISTORY OF PRESENT ILLNESS: Patient underwent cardiac catheterization yesterday with Dr. Doty revealing [place] three-vessel coronary artery disease with patent stent within the LAD, significant lesions of the circumflex and right coronary artery which are unchanged from previous catheterization. Medical management was recommended. Patient examined this morning at the bedside. She denies chest pain or pressure. She denies shortness of breath. She has been up ambulating in her room without difficulty. Vital signs are stable. Echocardiogram completed revealing ejection fraction 45-50%, apical anterior LV wall hypokinesis, and apical septal LV wall hypokinesis She is hoping to be discharged home today. PHYSICAL EXAM: VITAL SIGNS: Reviewed. GENERAL: Well-developed in no acute distress. NECK: Supple. No JVD or thyromegaly LUNGS: Respirations even and unlabored. Lungs essentially clear to auscultation bilaterally. HEART: Regular rate and rhythm. S1 and S2 heard. EXTREMITIES: Normal range of motion. No clubbing or cyanosis. Peripheral pulse s intact. No lower extremity edema. Right groin soft with no hematoma noted. ASSESSMENT: Non-STEMI Coronary artery disease Ischemic cardiomyopathy PLAN: Continue dual antiplatelet therapy with aspirin and Effient Continue additional cardiac medications Patient is stable for discharge home today She is to follow up outpatient with Dr. Doty Nurse practitioner note has been reviewed by physician. Signing provider agrees with the documented findings, assessment, and plan of care. Objective - Vital Signs Vital signs: Vital Signs Temp 97.9 F 04/17/21 07:53 Pulse 70 04/17/21 07:56 Resp 18 04/17/21 07:56 BP 152/89 04/17/21 07:53 Pulse Ox 93 L 04/17/21 07:53 Intake & Output 04/16/21 04/17/21 04/17/21 18:59 06:59 18:59 Intake Total 770 240 780 Balance 770 240 780 Weight 114.4 kg Intake: IV 230 Sodium Chloride 0.9% 1, 150 000 ml In Empty Bag 1 bag @ 1 ML/KG/HR 115 mls/hr IV .Q8H42M [facility] Rx#: [id number] Oral 540 240 780 Other: Voiding Method Toilet Toilet # Voids 1 1 - Labs CBC & Chem 7: 04/16/21 05:19 04/17/21 08:15 Labs: Abnormal Lab Results - Last 24 Hours (Table) 04/16/21 04/16/21 04/16/21 Range/Units 05:19 12:39 16:14 Sodium (137-145) mmol/L Glucose (74-99) mg/dL POC Glucose (mg/dL) 130 H 130 H (75-99) mg/dL Hemoglobin A1c 6.6 H (4.0-6.0) % 04/16/21 04/17/21 04/17/21 Range/Units 19:38 06:20 08:15 Sodium 135 L (137-145) mmol/L Glucose 162 H (74-99) mg/dL POC Glucose (mg/dL) 149 H 132 H (75-99) mg/dL Hemoglobin A1c (4.0-6.0) %
== END 2021-04-17 11:56 | disposition home or self-care (01) | DRG 281 ==
LOC: EC 11:38 → 6NMEDSUR 14:09 → 3SCARD 18:40 → OBSVTOIN 04-16 14:35
PROVIDERS: ADMIT Family Medicine; ATTEND Family Medicine
PROC: B2131ZZ Fluoroscopy of Multiple Coronary Artery Bypass Grafts using Low Osmolar Contrast (ICD-10-PCS; principal; 2021-04-16 21:40)
PROC: 4A023N7 Measurement of Cardiac Sampling and Pressure, Left Heart, Percutaneous Approach (ICD-10-PCS; principal; 2021-04-16 21:40)
PROC: B2111ZZ Fluoroscopy of Multiple Coronary Arteries using Low Osmolar Contrast (ICD-10-PCS; principal; 2021-04-16 21:40)
DX: I21.4 Non-ST elevation (NSTEMI) myocardial infarction (principal); Z68.41 Body mass index [BMI] 40.0-44.9, adult; I11.0 Hypertensive heart disease with heart failure; I25.10 Atherosclerotic heart disease of native coronary artery without angina pectoris; G47.30 Sleep apnea, unspecified; I25.2 Old myocardial infarction; I25.5 Ischemic cardiomyopathy; I48.91 Unspecified atrial fibrillation; I50.9 Heart failure, unspecified; J44.9 Chronic obstructive pulmonary disease, unspecified; M06.9 Rheumatoid arthritis, unspecified; E11.9 Type 2 diabetes mellitus without complications; E66.9 Obesity, unspecified; E78.5 Hyperlipidemia, unspecified; Z20.822 Contact with and (suspected) exposure to COVID-19; Z98.890 Other specified postprocedural states; Z90.49 Acquired absence of other specified parts of digestive tract; Z80.3 Family history of malignant neoplasm of breast; Z82.49 Family history of ischemic heart disease and other diseases of the circulatory system; Z87.19 Personal history of other diseases of the digestive system; Z87.891 Personal history of nicotine dependence; Z95.1 Presence of aortocoronary bypass graft; Z95.5 Presence of coronary angioplasty implant and graft; Z95.810 Presence of automatic (implantable) cardiac defibrillator; Z88.8 Allergy status to other drugs, medicaments and biological substances
CPT/HCPCS: 36415; 71046; 80048; 80053; 80061; 83036; 83735; 84484; 85025; 85610; 85730; 87635; 93005; 93306; 93458; 94760; 96374; 96375; 99285

== ENCOUNTER 2021-05-21 18:55 | Observation (INO) | payer MEDICARE ==
[2021-05-21 19:40] LABS: Basophils # (A) 0.1 k/uL (0-0.2); Basophils % (A) 1 %; Eosinophils # (A) 0.1 k/uL (0-0.7); Eosinophils % (A) 1 %; HCT 43.3 % (34.0-46.0); HGB 14.3 gm/dL (11.4-16.0); Lymphocytes % (A) 16 %; MCH 29.1 pg (25.0-35.0); MCHC 33.1 g/dL (31.0-37.0); MCV 87.8 fL (80.0-100.0); Mean Platelet Volume 8.7; Monocytes # (A) 0.4 k/uL (0-1.0); Monocytes % (A) 3 %; Neutrophils # (A) 10.3 k/uL (1.3-7.7); Neutrophils % (A) 80 %; Platelet Count 220 k/uL (150-450); RBC 4.93 m/uL (3.80-5.40); RDW 13.7 % (11.5-15.5); WBC 12.9 k/uL (3.8-10.6)
[2021-05-21 19:51] LABS: Albumin 4.4 g/dL (3.5-5.0); Calcium 9.9 mg/dL (8.4-10.2); Potassium 4.8 mmol/L (3.5-5.1); Total Bilirubin 0.3 mg/dL (0.2-1.3); Total Protein 7.4 g/dL (6.3-8.2)
[2021-05-21 19:58] LABS: INR 0.9 (<1.2); Partial Thromboplastin Time 21.2 sec (22.0-30.0); Prothrombin Time 10.1 sec (9.0-12.0)
--- NOTE | 2021-05-21 20:59 | XR ---
EXAMINATION TYPE: XR chest 2V DATE OF EXAM: 05/21/2021 COMPARISON: 04/15/2021 HISTORY: Chest pain TECHNIQUE: FINDINGS: Heart and mediastinum are normal. Lungs are clear. There are sternal wires. There is left a xillary pacemaker. There is no evidence of pleural effusion. Bony thorax is intact. IMPRESSION: No active cardiopulmonary disease. No change.
[2021-05-21] MEDS ORDERED: NITROGLYCERIN OINT 1 INCH/GM PACKET TOPICAL STA (21:09)
[2021-05-21] MEDS ORDERED: HEPARIN SODIUM 1,000 UN/ML (10ML VL) IV ONE (21:10)
[2021-05-21] MEDS ORDERED: HEPARIN SODIUM 1,000 UN/ML (10ML VL) IV PRN (21:10)
--- NOTE | 2021-05-21 21:15 | ED ---
Chest Pain HPI - General Chief Complaint: Chest Pain Stated Complaint: Chest Pain Time Seen by Provider: 05/21/21 21:00 Source: patient, RN notes reviewed, old records reviewed Mode of arrival: wheelchair Limitations: no limitations - History of Present Illness Initial Comments: 65-year-old female history of heart disease and pacemaker was had 2 hospita lizations for OR this year who states she had the onset around 4 PM today of retrosternal chest pain 8/10 severity the feeling like someone was sitting at her chest. It radiated to both arms. He currently is about 6/10 and was 8/10. No current nausea no vomiting he "little shortness of breath. Also does radiate to her back. It feels similar to previous episodes this year. MD Complaint: chest pain - Related Data Home Medications Medication Instructions Recorded Confirmed Oxybutynin Chloride [Ditropan] 5 mg PO BID 12/25/13 04/15/21 Losartan Potassium 50 mg PO DAILY 04/01/16 04/15/21 Cholecalciferol [Vitamin D3 (25 1,000 unit PO DAILY 10/22/18 04/15/21 Mcg = 1000 Iu)] ARIPiprazole [Abilify] 2 mg PO DAILY 10/24/19 04/15/21 Albuterol Sulfate [Ventolin HFA] 2 puff INHALATION RT-Q6H PRN 10/24/19 04/15/21 DULoxetine HCL [Cymbalta] 60 mg PO DAILY 10/24/19 04/15/21 Ibuprofen [Motrin] 800 mg PO Q8H PRN 01/27/21 04/15/21 Metoprolol Succinate (ER) [Toprol 75 mg PO BID 01/27/21 04/15/21 XL] Ascorbic Acid [Vitamin C] 1,000 mg PO DAILY 04/15/21 04/15/21 Biotin 10,000 mcg PO DAILY 04/15/21 04/15/21 Cyclobenzaprine [Flexeril] 10 mg PO HS 04/15/21 04/15/21 Isosorbide Mononitrate 20 mg PO DAILY 04/15/21 04/15/21 Rosuvastatin Calcium [Crestor] 5 mg PO MOTH 04/15/21 04/15/21 metFORMIN HCL [Glucophage] 500 mg PO TID 04/15/21 04/15/21 Previous Rx's Medication Instructions Recorded Nitroglycerin Sl Tabs [Nitrostat] 0.4 mg SUBLINGUAL Q5M PRN #30 tab 01/28/21 Aspirin 81 mg PO DAILY #0 tab 04/17/21 Prasugrel HCl 10 mg PO DAILY #30 tablet 04/17/21 Allergies Allergy/AdvReac Type Severity Reaction Status Date / Time clopidogrel bisulfate Allergy Rash/Hives Verified 05/21/21 19:03 [From Plavix] atorvastatin calcium AdvReac Severe Verified 05/21/21 19:03 [From Lipitor] muscle pain ezetimibe [From Zetia] AdvReac Unknown Verified 05/21/21 19:03 simvastatin [From Zocor] AdvReac Severe Verified 05/21/21 19:03 muscle pain Review of Systems ROS Statement: Those systems with pertinent positive or pertinent negative responses have been documented in the HPI. ROS Other: All systems not noted in ROS Statement are negative. EKG Findings - EKG Results: EKG: interpreted by CAREY, sinus rhythm (Normal sinus rhythm a 71 ME interval 178 QRS 106 QT/QTC 386/418 left ventricular hypertrophy noted nonspecific septal configuration) Past Medical History Past Medical History: Atrial Fibrillation, Coronary Artery Disease (CAD), Heart Failure, COPD, Hyperlipidemia, Hypertension, Myocardial Infarction (OR), Osteoarthritis (OA), Rheumatoid Arthritis (RA), Sleep Apnea/CPAP/BIPAP Additional Past Medical History / Comment(s): Heart Murmur, since CABG-L arm larger than right, Back & Cervical pain., Sawyer carpal tunnel syndrome ., C-Pap machine., Hx of colon polyps, Eczema. Last Myocardial Infarction Date:: 2020 History of Any Multi-Drug Resistant Organisms: None Reported Past Surgical History: AICD, Appendectomy, Section, Cholecystectomy, Coronary Bypass/CABG, Heart Catheterization, Heart Catheterization With Stent, Pacemaker Additional Past Surgical History / Comment(s): Multiple cardiac stents-, 2000 CABG 2 vessel, L carpal tunnel, D&C, colonoscopy. [employer] AICD Past Anesthesia/Blood Transfusion Reactions: Previous Problems w/ Anesthesia, Motion Sickness Additional Past Anesthesia/Blood Transfusion Reaction / Comment(s): WOKE UP DURING PROCEDURE Date of Last Stent Placement:: 2020 Type of Cardiac Device: Permanent Pacemaker, AICD Device Placement Date:: 05/2014 Past Psychological History: Anxiety, Depression Smoking Status: Former smoker Past Alcohol Use History: Rare Past Drug Use History: None Reported - Past Family History Mother Family Medical History: Hypertension, Myocardial Infarction (OR) Additional Family Medical History / Comment(s): Mother of a OR at the age of 63 yrs. Sister(s) Family Medical History: Cancer Additional Family Medical History / Comment(s): Breast Cancer Father Family Medical History: Coronary Artery Disease (CAD), Hypertension, Myocardial Infarction (OR) Additional Family Medical History / Comment(s): Father of a OR at the age of 50 yrs. General Exam - General Exam Comments Initial Comments: This is a well-developed well-nourished awake alert oriented 3 female Limitations: no limitations General appearance: alert, anxious Head exam: Present: atraumatic, normocephalic, normal inspection Eye exam: Present: normal appearance, PERRL, EOMI. Absent: scleral icterus, conjunctival injection, periorbital swelling ENT exam: Present: normal exam, mucous membranes moist Neck exam: Present: normal inspection, full ROM, other (No stridor JVD or bruits). Absent: tenderness, meningismus, lymphadenopathy Respiratory exam: Present: normal lung sounds bilaterally. Absent: respiratory distress, wheezes, rales, rhonchi, stridor Cardiovascular Exam: Present: regular rate, normal rhythm, normal heart sounds. Absent: systolic murmur, diastolic murmur, rubs, gallop, clicks GI/Abdominal exam: Present: soft, normal bowel sounds. Absent: distended, tenderness, guarding, rebound, rigid, bruit, pulsatile mass Extremities exam: Present: normal inspection, full ROM, normal capillary refill. Absent: tenderness, pedal edema, joint swelling, calf tenderness Back exam: Present: normal inspection Neurological exam: Present: alert, oriented X3, CN II-XII intact Psychiatric exam: Present: normal affect, normal mood Skin exam: Present: warm, dry, intact, normal color. Absent: rash Course Vital Signs 05/21/21 05/21/21 19:03 21:00 Temperature 98.0 F Pulse Rate 70 60 Respiratory 18 16 Rate Blood Pressure 154/94 148/95 O2 Sat by Pulse 100 93 L Oximetry Chest Pain MDM - MDM Imaging reviewed no acute findings I did discuss findings with patient and family patient has no pain at this time she will be admitted the case is discussed with Dr. Mcnamara. Dr. Orlando will be consultedm Critical Care Time Critical Care Time: Yes Total Critical Care Time: 31 Critical Care Time: Critical care time includes initial presentation with history physical labs x- rays several reevaluation patient responsive therapy discuss with the patient family regarding findings discussed with the main physician admission orders and documentation of the above Disposition Clinical Impression: Chest pain, Unstable angina pectoris Disposition: ADMITTED IP TO THIS [facility] Condition: Fair Referrals: Dena Albrecht DO [Primary Care Provider] - 1-2 days
[2021-05-21] MEDS: HEPARIN SOD,PORK IN 0.45% NACL 25,000 UNIT in 0.45% NACL 1 250ML.BAG IV SCH (21:48)
[2021-05-21] MEDS ORDERED: MORPHINE SULFATE 4 MG/ML SYRINGE IV PRN (22:34)
[2021-05-21] MEDS ORDERED: IBUPROFEN 800 MG TAB PO PRN (22:37)
[2021-05-21] MEDS ORDERED: NON FORMULARY DRUG (Rosuvastatin Calcium [Crestor] 5 MG Tablet) PO SCH (23:15)
[2021-05-22] MEDS: NITROGLYCERIN OINT 1 INCH/GM PACKET TOPICAL SCH ×5 (00:42→23:48)
[2021-05-22] MEDS: SODIUM CHLORIDE 0.9% 1,000 ML IV SCH ×2 (00:43→23:48)
[2021-05-22 00:49] VITALS: RESP 18
[2021-05-22] MEDS ORDERED: DULoxetine HCL 60 MG CAPSULE.DR PO SCH (09:00)
[2021-05-22] MEDS ORDERED: ASPIRIN 325 MG TAB PO SCH (09:00)
[2021-05-22] MEDS ORDERED: LOSARTAN 50 MG TAB PO SCH (09:00)
[2021-05-22] MEDS ORDERED: ISOSORBIDE MONONITRATE 20 MG TAB PO SCH (09:00)
[2021-05-22] MEDS ORDERED: PRASUGREL 10 MG TAB PO SCH (09:00)
[2021-05-22] MEDS ORDERED: CHOLECALCIFEROL 25 MCG (1000 IU) TABLET PO SCH (09:00)
[2021-05-22] MEDS ORDERED: NON FORMULARY DRUG (Biotin [Biotin] 10,000 MCG Capsule) PO SCH (09:00)
[2021-05-22] MEDS: METOPROLOL SUCCINATE (ER) 25 MG TAB.ER.24H PO SCH ×2 (10:15→20:56)
[2021-05-22] MEDS: OXYBUTYNIN CHLORIDE 5 MG TAB PO SCH ×2 (10:16→20:57)
[2021-05-22] MEDS: metFORMIN 500 MG TAB PO SCH ×3 (10:32→20:15)
[2021-05-22 11:42] LABS: Glucose,Whole Blood 169 mg/dL (75-99)
--- NOTE | 2021-05-22 12:25 | P.CRDCN ---
History of Present Illness History of present illness: HISTORY OF PRESENTING ILLNESS This is a pleasant 65-year-old female past medical history significant for coronary artery disease status post three-vessel CABG 2016, PCI of the mid LAD 01/2021 and PCI to proximal RCA in 09/2015, hypertension, dyslipidemia, former tobacco use, ischemic cardiomyopathy status post BiV ICD 2000. She follows in the office with Dr. Doty. We have been asked to see in consultation for NSTEMI. Patient presents to the ER with complaints of chest pain. Her chest pain started at 4pm 05/21/21, located in the center of her chest. Describes it as heavy and someone sitting on her chest. She had radiation to bilateral axilla and back. She took 2-3 sublingual nitroglycerin with no relief. She states the pain lasted over 3 hours. It resolved on its own. She had associated dizziness. Denies shortness of breath, nausea, diaphoresis. She denies exertional pain. No s pecific aggravating or alleviating factors. She states this pain is similar April 2021 when she underwent cardiac catheterization with Dr. Doty which revealed circumflex 90% stenosis, 70-80% stenosis in the mid RCA, [place] 3 vessel coronary artery disease with patent stent within the LAD. Significant lesions of the circumflex and RCA are unchanged from previous catheterization. At that time it was recommended to undergo optimal medical therapy with aspirin and effient. DIAGNOSTICS EKG reveals sinus rhythm, heart rate 71, ST depression in leads I and aVL, prior EKGs do appear similar. Echocardiogram 04/16/2021 revealed an EF 4550%, apical anterior and apical septum LV wall motion hypokinetic Chest xray no active cardiopulmonary disease. Laboratory reviewed, troponin trend negative 1, 0.30, 0.95, WBC 12.9 2114, plates 220, d-dimer negative, sodium 136, potassium 4.8, BUN 32, serum crit 0.8, magnesium 2.0, proBNP 432, COVID-19 PCR negative. Current cardiac medications include rosuvastatin 5 mg daily, Prinivil 10 mg daily, metoprolol succinate 75 mg twice a day, losartan 50 mg daily, Imdur 20 mg daily, aspirin 81mg daily REVIEW OF SYSTEMS At the time of my exam: CONSTITUTIONAL: Denies fever or chills. CARDIOVASCULAR: + chest pain, Denies shortness of breath, orthopnea, PND or palpitations. RESPIRATORY: Denies cough. GASTROINTESTINAL: Denies abdominal pain, diarrhea, constipation, nausea or vomiting. MUSCULOSKELETAL: Denies myalgias. NEUROLOGIC: +dizziness Denies numbness, tingling, headacbe or weakness. ENDOCRINE: Denies fatigue, weight change, polydipsia or polyurina. GENITOURINARY: Denies burning, hematuria or urgency with micturation. HEMATOLOGIC: Denies history of anemia or bleeding. PHYSICAL EXAMINATION Blood pressure 123/82, heart rate 56, afebrile oxygen saturation 97% on 2 L nasal cannula CONSTITUTIONAL: No apparent distress. HEENT: Head is normocephalic. Pupils are equal, round. Sclerae anicteric. Mucous membranes of the mouth are moist. No JVD. No carotid bruit. CHEST EXAMINATION: Lungs are clear to auscultation. No chest wall tenderness is noted on palpation or with deep breathing. HEART EXAMINATION: Regular rate and rhythm. S1, S2 heard. Systolic ejection murmur at apex ABDOMEN: Soft, nontender. Positive bowel sounds. EXTREMITIES: 2+ peripheral pulses, no lower extremity edema and no calf tenderness. NEUROLOGIC EXAMINATION: Patient is awake, alert and oriented x3. ASSESSMENT NSTEMI Coronary artery disease status post three-vessel CABG 2016, PCI of the mid LAD 01/2021 and PCI to proximal RCA in 09/2015 Hypertension Dyslipidemia Former tobacco use Ischemic cardiomyopathy status post BiV ICD 2000 PLAN Cardiac catheterization films reviewed with Dr. Javier. Patient's case discussed with Dr. 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 Due to the location of the lesions we are recommending transfer to tertiary care center for intervention of these lesions. Plan for patient to be transferred to [facility]. Continue IV heparin drip Continue home cardiac medications Plan to transfer to [facility]. Nurse Practitioner note has been reviewed, I agree with a documented findings and plan of care. Patient was seen and examined. Past Medical History Past Medical History: Atrial Fibrillation, Coronary Artery Disease (CAD), Heart Failure, COPD, Hyperlipidemia, Hypertension, Myocardial Infarction ([place]), Osteoarthritis (OA), Rheumatoid Arthritis (RA), Sleep Apnea/CPAP/BIPAP Additional Past Medical History / Comment(s): Heart Murmur, since CABG-L arm larger than right, Back & Cervical pain., Sawyer carpal tunnel syndrome ., C-Pap machine., Hx of colon polyps, Eczema. Last Myocardial Infarction Date:: 2020 History of Any Multi-Drug Resistant Organisms: None Reported Past Surgical History: AICD, Appendectomy, Section, Cholecystectomy, Coronary Bypass/CABG, Heart Catheterization, Heart Catheterization With Stent, Pacemaker Additional Past Surgical History / Comment(s): Multiple cardiac stents-, 2000 CABG 2 vessel, L carpal tunnel, D&C, colonoscopy. [employer] AICD Past Anesthesia/Blood Transfusion Reactions: Previous Problems w/ Anesthesia, Motion Sickness Additional Past Anesthesia/Blood Transfusion Reaction / Comment(s): WOKE UP DURING PROCEDURE Date of Last Stent Placement:: 2020 Type of Cardiac Device: Permanent Pacemaker, AICD Device Placement Date:: 05/2014 Past Psychological History: Anxiety, Depression Smoking Status: Former smoker Past Alcohol Use History: Rare Past Drug Use History: None Reported - Past Family History Mother Family Medical History: Hypertension, Myocardial Infarction ([place]) Additional Family Medical History / Comment(s): Mother of a [place] at the age of 63 yrs. Sister(s) Family Medical History: Cancer Additional Family Medical History / Comment(s): Breast Cancer Father Family Medical History: Coronary Artery Disease (CAD), Hypertension, Myocardial Infarction ([place]) Additional Family Medical History / Comment(s): Father of a [place] at the age of 50 yrs. Medications and Allergies Home Medications Medication Instructions Recorded Confirmed Type Oxybutynin Chloride [Ditropan] 5 mg PO BID 12/25/13 05/21/21 History Losartan Potassium 50 mg PO DAILY 04/01/16 05/21/21 History Cholecalciferol [Vitamin D3 (25 1,000 unit PO DAILY 10/22/18 05/21/21 History Mcg = 1000 Iu)] ARIPiprazole [Abilify] 2 mg PO DAILY 10/24/19 05/21/21 History Albuterol Sulfate [Ventolin HFA] 2 puff INHALATION RT-Q6H PRN 10/24/19 05/21/21 History DULoxetine HCL [Cymbalta] 60 mg PO DAILY 10/24/19 05/21/21 History Ibuprofen [Motrin] 800 mg PO Q8H PRN 01/27/21 05/21/21 History Metoprolol Succinate (ER) [Toprol 75 mg PO BID 01/27/21 05/21/21 History XL] Nitroglycerin Sl Tabs [Nitrostat] 0.4 mg SUBLINGUAL Q5M PRN #30 tab 01/28/21 05/21/21 Rx Ascorbic Acid [Vitamin C] 1,000 mg PO DAILY 04/15/21 05/21/21 History Biotin 10,000 mcg PO DAILY 04/15/21 05/21/21 History Cyclobenzaprine [Flexeril] 10 mg PO HS 04/15/21 05/21/21 History Isosorbide Mononitrate 20 mg PO DAILY 04/15/21 05/21/21 History Rosuvastatin Calcium [Crestor] 5 mg PO MOTH 04/15/21 05/21/21 History metFORMIN HCL [Glucophage] 500 mg PO TID 04/15/21 05/21/21 History Aspirin 81 mg PO DAILY #0 tab 04/17/21 05/21/21 Rx Prasugrel HCl 10 mg PO DAILY #30 tablet 04/17/21 05/21/21 Rx predniSONE See Taper PO DIRECTED 05/21/21 05/21/21 History Allergies Allergy/AdvReac Type Severity Reaction Status Date / Time clopidogrel bisulfate Allergy Rash/Hives Verified 05/21/21 23:00 [From Plavix] atorvastatin calcium AdvReac Severe Verified 05/21/21 23:00 [From Lipitor] muscle pain ezetimibe [From Zetia] AdvReac Unknown Verified 05/21/21 23:00 simvastatin [From Zocor] AdvReac Severe Verified 05/21/21 23:00 muscle pain Physical Exam Vitals: Vital Signs Temp Pulse Resp BP Pulse Ox 05/22/21 06:17 97.5 F L 53 L 18 121/76 97 05/22/21 04:48 56 L 18 123/82 94 L 05/22/21 03:00 50 L 18 97 05/22/21 02:00 54 L 18 96 05/22/21 00:48 58 L 18 127/74 95 05/21/21 21:00 60 16 148/95 93 L 05/21/21 19:03 98.0 F 70 18 154/94 100 Intake and Output 05/21/21 05/22/21 05/22/21 22:59 06:59 14:59 Intake Total 75.871 Balance 75.871 Intake: Intake, IV Titration 75.871 Amount Heparin Sod,Pork in 0.45% 75.871 NaCl 25,000 unit In 0.45 % NaCl 1 250ml.bag @ 8.65 UNITS/KG/HR 10.005 mls/ hr IV .Q24H [facility] Rx#: [id number] Other: Weight 115.666 kg Results 05/21/21 19:17 05/21/21 19:17 Cardiac Enzymes 05/21/21 05/21/21 05/21/21 Range/Units 19:17 19:17 23:33 AST 26 (14-36) U/L Troponin I <0.012 0.307 H* (0.000-0.034) ng/mL 05/22/21 Range/Units 03:10 AST (14-36) U/L Troponin I 0.953 H* (0.000-0.034) ng/mL Coagulation 05/21/21 05/22/21 Range/Units 19:17 03:10 PT 10.1 (9.0-12.0) sec APTT 21.2 L 31.0 H (22.0-30.0) sec CBC 05/21/21 Range/Units 19:17 WBC 12.9 H (3.8-10.6) k/uL RBC 4.93 (3.80-5.40) m/uL Hgb 14.3 (11.4-16.0) gm/dL Hct 43.3 (34.0-46.0) % Plt Count 220 (150-450) k/uL Comprehensive Metabolic Panel 05/21/21 Range/Units 19:17 Sodium 136 L (137-145) mmol/L Potassium 4.8 (3.5-5.1) mmol/L Chloride 102 (98-107) mmol/L Carbon Dioxide 22 (22-30) mmol/L BUN 32 H (7-17) mg/dL Creatinine 0.86 (0.52-1.04) mg/dL Glucose 249 H (74-99) mg/dL Calcium 9.9 (8.4-10.2) mg/dL AST 26 (14-36) U/L ALT 42 H (4-34) U/L Alkaline Phosphatase 119 (38-126) U/L Total Protein 7.4 (6.3-8.2) g/dL Albumin 4.4 (3.5-5.0) g/dL Current Medications Generic Name Dose Route Start Last Admin Trade Name Freq PRN Reason Stop Dose Admin Aspirin 325 mg 05/22/21 09:00 Aspirin 325 Mg Tab PO DAILY [facility] Cholecalciferol 25 mcg 05/22/21 09:00 Cholecalciferol 25 Mcg (1000 Iu) Tablet PO DAILY [facility] Cyclobenzaprine HCl 10 mg 05/22/21 21:00 Cyclobenzaprine 10 Mg Tab PO HS [facility] Duloxetine HCl 60 mg 05/22/21 09:00 Duloxetine Hcl 60 Mg Capsule.Dr PO DAILY [facility] Heparin Sodium (Porcine) 0 unit 05/21/21 21:10 05/22/21 05:22 Heparin Sodium 1,000 Un/Ml (10ml Vl) IV 4,000 unit PER PROTOCOL PRN Administration Low PTT Protocol Heparin Sodium/Sodium Chloride 250 mls @ 10.005 mls/hr 05/21/21 21:15 05/22/21 05:23 25,000 unit/ Sodium Chloride IV 11.65 units/kg/hr .Q24H [facility] 13.475 mls/hr Titration Protocol 8.65 UNITS/KG/HR Sodium Chloride 1,000 mls @ 20 mls/hr 05/21/21 22:45 05/22/21 00:43 Saline 0.9% IV Not Given .Q24H [facility] Ibuprofen 800 mg 05/21/21 22:37 Ibuprofen 800 Mg Tab PO Q8H PRN Pain Losartan Potassium 50 mg 05/22/21 09:00 Losartan 50 Mg Tab PO DAILY [facility] Metformin HCl 500 mg 05/22/21 09:00 Metformin 500 Mg Tab PO TID [facility] Metoprolol Succinate 75 mg 05/22/21 09:00 Metoprolol Succinate (Er) 25 Mg Tab.Er.24h PO BID [facility] Morphine Sulfate 4 mg 05/21/21 22:34 05/22/21 00:42 Morphine Sulfate 4 Mg/Ml Syringe IV 4 mg Q5M PRN Administration Chest Pain Nitroglycerin 1 inch 05/22/21 00:00 05/22/21 06:19 Nitroglycerin Oint 1 Inch/Gm Packet TOPICAL 1 inch Q6HR [facility] Administration Non-Formulary Medication 5 mg 05/21/21 23:15 05/22/21 00:48 Rosuvastatin Calcium [Crestor] PO Not Given MoTh@0900 [facility] Oxybutynin Chloride 5 mg 05/22/21 09:00 Oxybutynin Chloride 5 Mg Tab PO BID [facility] Prasugrel 10 mg 05/22/21 09:00 Prasugrel 10 Mg Tab PO DAILY [facility] Intake and Output 05/21/21 05/22/21 05/22/21 22:59 06:59 14:59 Intake Total 75.871 Balance 75.871 Intake: Intake, IV Titration 75.871 Amount Heparin Sod,Pork in 0.45% 75.871 NaCl 25,000 unit In 0.45 % NaCl 1 250ml.bag @ 8.65 UNITS/KG/HR 10.005 mls/ hr IV .Q24H [facility] Rx#: [id number] Other: Weight 115.666 kg 05/21/21 19:17 05/21/21 19:17
[2021-05-22] MEDS: INSULIN ASPART (NovoLOG) 100 UNIT/ML VIAL SQ SCH ×3 (12:29→20:56)
[2021-05-22 16:06] LABS: Chol/HDL Ratio 3.55 Ratio; LDL Cholesterol,Calculated 126.5 mg/dL (0.0-131.0)
[2021-05-22 16:49] LABS: Glucose,Whole Blood 157 mg/dL (75-99)
[2021-05-22] MEDS: HEPARIN SOD,PORK IN 0.45% NACL 25,000 UNIT in 0.45% NACL 1 250ML.BAG IV SCH (18:06)
[2021-05-22 20:43] LABS: Glucose,Whole Blood 171 mg/dL (75-99)
[2021-05-22 20:50] LABS: Glucose,Whole Blood 170 mg/dL (75-99)
[2021-05-22] MEDS ORDERED: CYCLOBENZAPRINE 10 MG TAB PO SCH (21:00)
[2021-05-22 21:37] VITALS: TEMP 98.4
--- NOTE | 2021-05-22 22:28 | P.HPIM ---
History of Present Illness H&P Date: 05/22/21 Chief Complaint: chest pain Dodie Leos is a 65 year old female with PMH of CAD s/p CABG 2016, PCI of the mid LAD 01/2021 and PCI to proximal RCA in 09/2015, T2DM, HTN, HLD, former tobacco use, ischemic cardiomyopathy status post BiV ICD who presented to the ER with complaints of chest pain. Her chest pain started at 4pm 05/21/21, located in the center of her chest. Describes it as heavy and someone sitting on her chest. She had radiation to bilateral axilla and back. She took 2-3 sublingual nitroglycerin with no relief. She states the pain lasted over 3 hours. It reso lved on its own. She had associated dizziness. Denies shortness of breath, nausea, diaphoresis. She denies exertional pain. On presentation EKG with ST depression, troponin initially 0.3, peaked at 0.9. She was started on IV heparin, currently denies chest pain or pressure. Review of Systems All systems: negative Constitutional: Reports malaise, Denies chills, Denies fever Eyes: denies blurred vision, denies pain Ears, nose, mouth and throat: Denies headache, Denies sore throat Cardiovascular: Reports chest pain, Denies shortness of breath Respiratory: Denies cough Gastrointestinal: Denies abdominal pain, Denies diarrhea, Denies nausea, Denies vomiting Genitourinary: Denies dysuria, Denies hematuria Musculoskeletal: Denies myalgias Integumentary: Denies pruritus, Denies rash Neurological: Denies numbness, Denies weakness Psychiatric: Denies anxiety, Denies depression Endocrine: Denies fatigue, Denies weight change Past Medical History Past Medical History: Atrial Fibrillation, Coronary Artery Disease (CAD), Chest Pain / Angina, Heart Failure, COPD, Hyperlipidemia, Hypertension, Myocardial Infarction ([place]), Osteoarthritis (OA), Rheumatoid Arthritis (RA), Sleep Apnea/CPAP/BIPAP Additional Past Medical History / Comment(s): Heart Murmur, since CABG-L arm larger than right, Back & Cervical pain., Sawyer carpal tunnel syndrome ., C-Pap machine., Hx of colon polyps, Eczema. Last Myocardial Infarction Date:: 2020 History of Any Multi-Drug Resistant Organisms: None Reported Past Surgical History: AICD, Appendectomy, Section, Cholecystectomy, Coronary Bypass/CABG, Heart Catheterization, Heart Catheterization With Stent, Pacemaker Additional Past Surgical History / Comment(s): Multiple cardiac stents-, 2000 CABG 2 vessel, L carpal tunnel, D&C, colonoscopy. [employer] AICD Past Anesthesia/Blood Transfusion Reactions: Previous Problems w/ Anesthesia, Motion Sickness Additional Past Anesthesia/Blood Transfusion Reaction / Comment(s): WOKE UP DURING PROCEDURE Date of Last Stent Placement:: 2020 Type of Cardiac Device: Permanent Pacemaker, AICD Device Placement Date:: 05/2014 Past Psychological History: Anxiety, Depression Additional Psychological History / Comment(s): . Smoking Status: Former smoker Past Alcohol Use History: Rare Additional Past Alcohol Use History / Comment(s): Pt started smoking in 1975 and quit in 1999., Smoked 1 ppd. Past Drug Use History: None Reported - Past Family History Mother Family Medical History: Hypertension, Myocardial Infarction ([place]) Additional Family Medical History / Comment(s): Mother of a [place] at the age of 63 yrs. Sister(s) Family Medical History: Cancer Additional Family Medical History / Comment(s): Breast Cancer Father Family Medical History: Coronary Artery Disease (CAD), Hypertension, Myocardial Infarction ([place]) Additional Family Medical History / Comment(s): Father of a HI at the age of 50 yrs. Medications and Allergies Home Medications Medication Instructions Recorded Confirmed Type Oxybutynin Chloride [Ditropan] 5 mg PO BID 12/25/13 05/21/21 History Losartan Potassium 50 mg PO DAILY 04/01/16 05/21/21 History Cholecalciferol [Vitamin D3 (25 1,000 unit PO DAILY 10/22/18 05/21/21 History Mcg = 1000 Iu)] ARIPiprazole [Abilify] 2 mg PO DAILY 10/24/19 05/21/21 History Albuterol Sulfate [Ventolin HFA] 2 puff INHALATION RT-Q6H PRN 10/24/19 05/21/21 History DULoxetine HCL [Cymbalta] 60 mg PO DAILY 10/24/19 05/21/21 History Ibuprofen [Motrin] 800 mg PO Q8H PRN 01/27/21 05/21/21 History Metoprolol Succinate (ER) [Toprol 75 mg PO BID 01/27/21 05/21/21 History XL] Nitroglycerin Sl Tabs [Nitrostat] 0.4 mg SUBLINGUAL Q5M PRN #30 tab 01/28/21 05/21/21 Rx Ascorbic Acid [Vitamin C] 1,000 mg PO DAILY 04/15/21 05/21/21 History Biotin 10,000 mcg PO DAILY 04/15/21 05/21/21 History Cyclobenzaprine [Flexeril] 10 mg PO HS 04/15/21 05/21/21 History Isosorbide Mononitrate 20 mg PO DAILY 04/15/21 05/21/21 History Rosuvastatin Calcium [Crestor] 5 mg PO MOTH 04/15/21 05/21/21 History metFORMIN HCL [Glucophage] 500 mg PO TID 04/15/21 05/21/21 History Aspirin 81 mg PO DAILY #0 tab 04/17/21 05/21/21 Rx Prasugrel HCl 10 mg PO DAILY #30 tablet 04/17/21 05/21/21 Rx predniSONE See Taper PO DIRECTED 05/21/21 05/21/21 History Allergies Allergy/AdvReac Type Severity Reaction Status Date / Time clopidogrel bisulfate Allergy Rash/Hives Verified 05/21/21 23:00 [From Plavix] atorvastatin calcium AdvReac Severe Verified 05/21/21 23:00 [From Lipitor] muscle pain ezetimibe [From Zetia] AdvReac Unknown Verified 05/21/21 23:00 simvastatin [From Zocor] AdvReac Severe Verified 05/21/21 23:00 muscle pain Physical Exam Vitals: Vital Signs Temp Pulse Pulse Resp BP BP Pulse Ox 05/22/21 19:35 98.4 F 66 18 110/73 98 05/22/21 16:00 98.1 F 63 18 121/81 97 05/22/21 14:00 59 L 18 05/22/21 08:14 97.8 F 59 L 18 130/109 96 05/22/21 08:00 59 L 18 05/22/21 06:17 97.5 F L 53 L 18 121/76 97 05/22/21 04:48 56 L 18 123/82 94 L 05/22/21 03:00 50 L 18 97 05/22/21 02:00 54 L 18 96 05/22/21 00:48 58 L 18 127/74 95 Intake and Output 1105/22/21 05/22/21 06:59 14:59 22:59 Intake Total 75.871 620 171.357 Balance 75.871 620 171.357 Intake: Intake, IV Titration 75.871 140 171.357 Amount Heparin Sod,Pork in 0.45% 75.871 171.357 NaCl 25,000 unit In 0.45 % NaCl 1 250ml.bag @ 8.65 UNITS/KG/HR 10.005 mls/ hr IV .Q24H [facility] Rx#: [id number] Sodium Chloride 0.9% 1, 140 000 ml @ 20 mls/hr IV . Q24H [facility] Rx#:[id number] Oral 480 Other: Voiding Method Toilet Toilet # Voids 3 1 Weight 115.666 kg General: well nourished, well developed, NAD. Vitals reviewed Eyes: PERRL, EOMI, conjunctiva normal HENT: normocephalic, mucus membranes moist Neck: supple, no JVD Lungs: normal respiratory effort, no wheezes or rales CV: Regular rate and rhythm, no murmur. Peripheral pulses 2+ Abdomen: soft, nondistended, no organomegaly Lymph: no cervical or axillary LAD Skin: warm and dry. Neuro: A&Ox3, normal mood and affect Results CBC & Chem 7: 05/21/21 19:17 05/21/21 19:17 Labs: Abnormal Lab Results - Last 24 Hours (Table) 05/21/21 05/22/21 05/22/21 Range/Units 23:33 03:10 03:10 APTT 31.0 H (22.0-30.0) sec POC Glucose (mg/dL) (75-99) mg/dL Troponin I 0.307 H* 0.953 H* (0.000-0.034) ng/mL Triglycerides (0.00-149.00) mg/dL Cholesterol (0.00-200.00) mg/dL VLDL Cholesterol, Calc (5.00-40.00) mg/dL HDL Cholesterol (40.00-60.00) mg/dL 05/22/21 05/22/21 05/22/21 Range/Units 03:10 11:09 11:37 APTT 44.7 H (22.0-30.0) sec POC Glucose (mg/dL) 169 H (75-99) mg/dL Troponin I (0.000-0.034) ng/mL Triglycerides 276.00 H (0.00-149.00) mg/dL Cholesterol 253.00 H (0.00-200.00) mg/dL VLDL Cholesterol, Calc 55.20 H (5.00-40.00) mg/dL HDL Cholesterol 71.30 H (40.00-60.00) mg/dL 05/22/21 05/22/21 05/22/21 Range/Units 16:47 20:39 20:49 APTT (22.0-30.0) sec POC Glucose (mg/dL) 157 H 171 H 170 H (75-99) mg/dL Troponin I (0.000-0.034) ng/mL Triglycerides (0.00-149.00) mg/dL Cholesterol (0.00-200.00) mg/dL VLDL Cholesterol, Calc (5.00-40.00) mg/dL HDL Cholesterol (40.00-60.00) mg/dL Assessment and Plan Plan: 1. NSTEMI. Cardiology following, pt started on IV heparin. Cardiology recommending transfer to tertiary care center for intervention. Continue effient, statin 2. Ischemic cardiomyopathy. continue losartan, metoprolol 3. T2DM. continue metformin, accuchecks
[2021-05-22 23:51] VITALS: BP 130/78; PULSE 57
--- NOTE | 2021-06-10 22:00 | P.DS ---
Providers Date of admission: 05/21/21 22:34 Expected date of discharge: 05/22/21 Attending physician: Romel Mcnamara MD Consults: 05/21/21 22:34 Consult Physician Urgent Consulting Provider: Tonny Doty Consult Reason/Comments: Unstable angina Do you want consulting provider notified?: Yes, Notify in am Primary care physician: Dena Albrecht [facility] Course: Dodie Leos is a 65 year old female with PMH of CAD s/p CABG 2016, PCI of the mid LAD 01/2021 and PCI to proximal RCA in 09/2015, T2DM, HTN, HLD, former tobacco use, ischemic cardiomyopathy status post BiV ICD who presented to the ER with complaints of chest pain. Her chest pain started at 4pm 05/21/21, located in the center of her chest. Describes it as heavy and someone sitting on her chest. She had radiation to bilateral axilla and back. She took 2-3 sublingual nitroglycerin with no relief. She states the pain lasted over 3 hours. It resolved on its own. She had associated dizziness. Denies shortness of breath, nausea, diaphoresis. She denies exertional pain. On presentation EKG with ST depression, troponin initially 0.3, peaked at 0.9. She was started on IV heparin, currently denies chest pain or pressure. Pt evaluated by cardiology, due to location of her blockage per most recent cath she was recommended transfer to [facility]. Patient Condition at Discharge: Fair Plan - Discharge Summary Discharge Rx Participant: No New Discharge Prescriptions: No Action Oxybutynin Chloride [Ditropan] 5 mg PO BID Losartan Potassium 50 mg PO DAILY Cholecalciferol [Vitamin D3 (25 Mcg = 1000 Iu)] 1,000 unit PO DAILY DULoxetine HCL [Cymbalta] 60 mg PO DAILY Albuterol Sulfate [Ventolin HFA] 2 puff INHALATION RT-Q6H PRN PRN Reason: Shortness Of Breath ARIPiprazole [Abilify] 2 mg PO DAILY Metoprolol Succinate (ER) [Toprol XL] 75 mg PO BID Ibuprofen [Motrin] 800 mg PO Q8H PRN PRN Reason: Pain Ascorbic Acid [Vitamin C] 1,000 mg PO DAILY Isosorbide Mononitrate 20 mg PO DAILY Rosuvastatin Calcium [Crestor] 5 mg PO MOTH Aspirin 81 mg PO DAILY #0 tab Prasugrel HCl 10 mg PO DAILY #30 tablet Nitroglycerin Sl Tabs [Nitrostat] 0.4 mg SUBLINGUAL Q5M PRN #30 tab PRN Reason: Chest Pain metFORMIN HCL [Glucophage] 500 mg PO TID Biotin 10,000 mcg PO DAILY Cyclobenzaprine [Flexeril] 10 mg PO HS predniSONE See Taper PO DIRECTED Discharge Medication List Oxybutynin Chloride [Ditropan] 5 mg PO BID 12/25/13 [History] Losartan Potassium 50 mg PO DAILY 04/01/16 [History] Cholecalciferol [Vitamin D3 (25 Mcg = 1000 Iu)] 1,000 unit PO DAILY 10/22/18 [History] ARIPiprazole [Abilify] 2 mg PO DAILY 10/24/19 [History] Albuterol Sulfate [Ventolin HFA] 2 puff INHALATION RT-Q6H PRN 10/24/19 [History] DULoxetine HCL [Cymbalta] 60 mg PO DAILY 10/24/19 [History] Ibuprofen [Motrin] 800 mg PO Q8H PRN 01/27/21 [History] Metoprolol Succinate (ER) [Toprol XL] 75 mg PO BID 01/27/21 [History] Nitroglycerin Sl Tabs [Nitrostat] 0.4 mg SUBLINGUAL Q5M PRN #30 tab 01/28/21 [Rx] Ascorbic Acid [Vitamin C] 1,000 mg PO DAILY 04/15/21 [History] Biotin 10,000 mcg PO DAILY 04/15/21 [History] Cyclobenzaprine [Flexeril] 10 mg PO HS 04/15/21 [History] Isosorbide Mononitrate 20 mg PO DAILY 04/15/21 [History] Rosuvastatin Calcium [Crestor] 5 mg PO MOTH 04/15/21 [History] metFORMIN HCL [Glucophage] 500 mg PO TID 04/15/21 [History] Aspirin 81 mg PO DAILY #0 tab 04/17/21 [Rx] Prasugrel HCl 10 mg PO DAILY #30 tablet 04/17/21 [Rx] predniSONE See Taper PO DIRECTED 05/21/21 [History] Follow up Appointment(s)/Referral(s): Dena Albrecht DO [Primary Care Provider] - 1-2 days Discharge Disposition: DC/[facility] INTERMEDIATE CARE FAC
== END 2021-05-23 02:56 ==
LOC: EC 18:55 → 6NMEDSUR 22:34 → 3SCARD 05-22 04:16 → INTOOBSV 05-22 12:53 → OBSVTOIN 05-22 12:53 → 3SCARD 05-22 13:35 → UNDODISIN 05-23 02:56
PROVIDERS: ADMIT Family Medicine; ATTEND Family Medicine
DX: I21.4 Non-ST elevation (NSTEMI) myocardial infarction (principal); I25.110 Atherosclerotic heart disease of native coronary artery with unstable angina pectoris; I25.5 Ischemic cardiomyopathy; I11.0 Hypertensive heart disease with heart failure; I50.9 Heart failure, unspecified; I48.91 Unspecified atrial fibrillation; E11.9 Type 2 diabetes mellitus without complications; E78.5 Hyperlipidemia, unspecified; L30.9 Dermatitis, unspecified; J44.9 Chronic obstructive pulmonary disease, unspecified; I25.2 Old myocardial infarction; M19.90 Unspecified osteoarthritis, unspecified site; M06.9 Rheumatoid arthritis, unspecified; G56.03 Carpal tunnel syndrome, bilateral upper limbs; G47.30 Sleep apnea, unspecified; F32.A Depression, unspecified; F41.9 Anxiety disorder, unspecified; Z20.822 Contact with and (suspected) exposure to COVID-19; Z79.52 Long term (current) use of systemic steroids; Z79.02 Long term (current) use of antithrombotics/antiplatelets; Z79.82 Long term (current) use of aspirin; Z79.84 Long term (current) use of oral hypoglycemic drugs; Z79.899 Other long term (current) drug therapy; Z88.8 Allergy status to other drugs, medicaments and biological substances; Z95.1 Presence of aortocoronary bypass graft; Z95.5 Presence of coronary angioplasty implant and graft; Z86.010 Personal history of colon polyps; Z90.49 Acquired absence of other specified parts of digestive tract; Z95.810 Presence of automatic (implantable) cardiac defibrillator; Z98.891 History of uterine scar from previous surgery; Z87.891 Personal history of nicotine dependence; Z98.890 Other specified postprocedural states; Z82.49 Family history of ischemic heart disease and other diseases of the circulatory system; Z80.3 Family history of malignant neoplasm of breast
CPT/HCPCS: 96376 ×2; 96365; 96366 ×2; 96375; 99291 ×2; 36415; 93005 ×2; 85379; 83880; 80061; 80053; 83690; 83735; 84484 ×2; 85025; 85610; 85730 ×2; 87635; 71046; G0378 ×5; J2270; J1644 ×4; 96372

== ENCOUNTER → 2021-06-25 | Outpatient (CLI) | payer MEDICARE ==
[2021-06-25 11:04] LABS: HCT 39.7 % (37.2-46.3); HGB 12.8 g/dL (12.0-15.0); MCH 28.3 pg (27.0-32.0); MCHC 32.2 g/dL (32.0-37.0); MCV 87.8 fL (80.0-97.0); Mean Platelet Volume 12.2 fL (9.5-12.2); Platelet Count 147 X 10*3/uL (140-440); RBC 4.52 X 10*6/uL (4.10-5.20); WBC 5.25 X 10*3/uL (4.50-10.00)
[2021-06-25 11:08] LABS: INR 0.94 (0.90-1.11); Prothrombin Time 10.4 sec (9.9-11.9)
[2021-06-25 11:45] LABS: African American GFR (CKD) 70.3 (60.0-200.0); Albumin 4.5 g/dL (3.8-4.9); Albumin/Globulin Ratio 2.08 (1.60-3.17); Anion Gap 11.7 mmol/L (10.00-18.00); BUN/Creat Ratio 14.23 Ratio (12.00-20.00); Calcium 9.6 mg/dL (8.7-10.3); Carbon Dioxide 23.5 mmol/L (20.0-27.5); Globulin 2.1 g/dL (1.6-3.3); Non-African American GFR(CKD) 60.7 (60.0-200.0); Potassium 4.4 mmol/L (3.5-5.5); Total Bilirubin 0.5 mg/dL (0.30-1.20); Total Protein 6.6 g/dL (6.2-8.2)
== END | disposition home or self-care (01) ==
LOC: LABWHC1 07:30
PROVIDERS: ATTEND Internal Medicine
DX: Z01.812 Encounter for preprocedural laboratory examination (principal); Z20.822 Contact with and (suspected) exposure to COVID-19; R77.8 Other specified abnormalities of plasma proteins
CPT/HCPCS: 36415; 80053; 85027; 85610

== ENCOUNTER → 2021-07-04 | Outpatient (CLI) | payer MEDICARE | END | disposition home or self-care (01) | LOC: LABWHC1 07:44 | PROVIDERS: ATTEND Internal Medicine | DX: Z01.812 Encounter for preprocedural laboratory examination (principal) | CPT/HCPCS: U0003; C9803 ==

== ENCOUNTER → 2021-08-28 | Outpatient (CLI) | payer MEDICARE ==
[2021-08-28 11:26] LABS: HCT 37.1 % (37.2-46.3); HGB 12.1 g/dL (12.0-15.0); MCH 28.1 pg (27.0-32.0); MCHC 32.6 g/dL (32.0-37.0); MCV 86.3 fL (80.0-97.0); Mean Platelet Volume 12.1 fL (9.5-12.2); NRBC Per 100 WBC 0 /100 WBCS (0.0-0.0); Platelet Count 181 X 10*3/uL (140-440); RDW 13.8 % (11.5-14.5); WBC 7.16 X 10*3/uL (4.50-10.00)
[2021-08-28 12:03] LABS: INR 0.94 (0.90-1.11); Prothrombin Time 10.7 sec (9.9-11.9)
[2021-08-28 12:59] LABS: African American GFR (CKD) 77.8 (60.0-200.0); Anion Gap 12.7 mmol/L (10.00-18.00); BUN/Creat Ratio 25.56 Ratio (12.00-20.00); Calcium 9.4 mg/dL (8.7-10.3); Carbon Dioxide 21.3 mmol/L (20.0-27.5); Non-African American GFR(CKD) 67.1 (60.0-200.0); Potassium 4.7 mmol/L (3.5-5.5)
== END ==
LOC: LABWHC1 07:06
PROVIDERS: ATTEND Internal Medicine
DX: Z01.812 Encounter for preprocedural laboratory examination (principal)
CPT/HCPCS: 36415; 80048; 85027; 85610

== ENCOUNTER → 2022-10-14 | Outpatient (CLI) | payer MEDICARE ==
--- NOTE | 2022-10-15 08:43 | CT ---
EXAMINATION TYPE: CT angio head DATE OF EXAM: 10/14/2022 HISTORY: pt states hx of mini stroke. pt also states she collapsed at work x2 months ago. COMPARISON: 04/01/2016 CT DLP: 1175.4 mGycm. Automated Exposure Control for Dose Reduction was Utilized. TECHNIQUE: CTA scan of the neck is performed without and with IV Contrast, patient injected with 65 mL of Isovue 370, axial images are obtained, coronal and sagittal reformatted images are reviewed. Th ree-D reconstructed images are created on an independent workstation and reviewed. Source images are reviewed. FINDINGS: Cervical of Nascimento: Vertebral arteries appear normal. Vertebral basilar system appears normal. Applications Packager ior cerebral vasculature is unremarkable. Internal carotid arteries bifurcate normally into A1 and M1 segments. A2 segments are normal. The anterior communicating artery is not clearly identified. Left Posterior communicating artery is patent. Right posterior communicating artery is patent. CT brain: No abnormal hyperdensity is present to suggest an acute intracranial hemorrhage. No mass lesion is evident. No acute infarcts are evident. Ventricles and sulci are appropriate for the patient age. Paranasal sinuses and mastoid air cells within the [id number] are clear. IMPRESSION: 1. Normal hopi of Nascimento. 2. No acute intracranial process.
== END | disposition home or self-care (01) ==
LOC: RADCTMAIN 14:07
PROVIDERS: ATTEND Family Medicine
DX: R29.898 Other symptoms and signs involving the musculoskeletal system (principal); Z86.73 Personal history of transient ischemic attack (TIA), and cerebral infarction without residual deficits
CPT/HCPCS: 82565; 84520; 70496; 36415; Q9967

== ENCOUNTER 2023-12-01 14:24 | Observation (INO) | payer MEDICARE ==
--- NOTE | 2023-12-01 14:40 | ED ---
General Adult HPI - General Chief complaint: Chest Pain Stated complaint: Chest pain,Jaw Pain Time Seen by Provider: 12/01/23 14:28 Source: patient, RN notes reviewed Mode of arrival: ambulatory Limitations: no limitations - History of Present Illness Initial comments: Patient is a 68-year-old female present to the emergency department with chest discomfort. Patient had an episode this morning around 630 while getting ready for work. Patient took a nitro with resolution of symptoms. Symptoms started again prior to arrival. Discomfort feels like pressure. There is some radiation to the jaw and back. Patient has mild associated dyspnea, nausea and diaphoresis. Patient states symptoms are similar to previous cardiac problems. Discomfort currently is 02/13 - Related Data Home Medications Medication Instructions Recorded Confirmed oxyBUTYnin chloride [Ditropan] 5 mg PO TID 12/25/13 12/01/23 Losartan Potassium 50 mg PO BID 04/01/16 12/01/23 ARIPiprazole [Abilify] 2 mg PO DAILY 10/24/19 12/01/23 DULoxetine HCL [Cymbalta] 60 mg PO DAILY 10/24/19 12/01/23 Isosorbide Mononitrate 20 mg PO DAILY 04/15/21 12/01/23 Rosuvastatin Calcium [Crestor] 5 mg PO DAILY 04/15/21 12/01/23 metFORMIN HCL [Glucophage] 500 mg PO BID 04/15/21 12/01/23 Acetaminophen [Tylenol Extra 1,000 mg PO Q6H PRN 12/01/23 12/01/23 Strength] Celecoxib [CeleBREX] 200 mg PO DAILY 12/01/23 12/01/23 carvediloL [Coreg] 12.5 mg PO BID 12/01/23 12/01/23 Previous Rx's Medication Instructions Recorded Nitroglycerin Sl Tabs [Nitrostat] 0.4 mg SUBLINGUAL Q5M PRN #30 tab 01/28/21 Aspirin 81 mg PO DAILY #0 tab 04/17/21 Allergies Allergy/AdvReac Type Severity Reaction Status Date / Time clopidogrel bisulfate Allergy Rash/Hives Verified 12/01/23 15:27 [From Plavix] atorvastatin calcium AdvReac Severe Verified 12/01/23 15:27 [From Lipitor] muscle pain ezetimibe [From Zetia] AdvReac Unknown Verified 12/01/23 15:27 simvastatin [From Zocor] AdvReac Severe Verified 12/01/23 15:27 muscle pain Review of Systems ROS Statement: Those systems with pertinent positive or pertinent negative responses have been documented in the HPI. ROS Other: All systems not noted in ROS Statement are negative. Constitutional: Denies: fever Eyes: Denies: eye pain ENT: Denies: ear pain Respiratory: Reports: as per HPI. Denies: cough Cardiovascular: Reports: as per HPI, chest pain Endocrine: Denies: fatigue Gastrointestinal: Denies: abdominal pain Musculoskeletal: Denies: arthralgia Skin: Denies: rash Past Medical History Past Medical History: Atrial Fibrillation, Coronary Artery Disease (CAD), Chest Pain / Angina, Heart Failure, COPD, Hyperlipidemia, Hypertension, Myocardial Infarction ([place]), Osteoarthritis (OA), Rheumatoid Arthritis (RA), Sleep Apnea/CPAP/BIPAP Additional Past Medical History / Comment(s): Heart Murmur, since CABG-L arm larger than right, Back & Cervical pain., Sawyer carpal tunnel syndrome ., C-Pap machine., Hx of colon polyps, Eczema. Last Myocardial Infarction Date:: 2020 History of Any Multi-Drug Resistant Organisms: None Reported Past Surgical History: AICD, Appendectomy, Section, Cholecystectomy, Coronary Bypass/CABG, Heart Catheterization, Heart Catheterization With Stent, Pacemaker Additional Past Surgical History / Comment(s): Multiple cardiac stents-, 2000 CABG 2 vessel, L carpal tunnel, D&C, colonoscopy. MEDTRONIC AICD Past Anesthesia/Blood Transfusion Reactions: Previous Problems w/ Anesthesia, Mo tion Sickness Additional Past Anesthesia/Blood Transfusion Reaction / Comment(s): WOKE UP DURING PROCEDURE Date of Last Stent Placement:: 2020 Type of Cardiac Device: Permanent Pacemaker, AICD Device Placement Date:: 05/2014 Past Psychological History: Anxiety, Depression Smoking Status: Former smoker Past Alcohol Use History: Rare Past Drug Use History: None Reported - Past Family History Mother Family Medical History: Hypertension, Myocardial Infarction ([place]) Additional Family Medical History / Comment(s): Mother of a AZ at the age of 63 yrs. Sister(s) Family Medical History: Cancer Additional Family Medical History / Comment(s): Breast Cancer Father Family Medical History: Coronary Artery Disease (CAD), Hypertension, Myocardial Infarction ([place]) Additional Family Medical History / Comment(s): Father of a AZ at the age of 50 yrs. General Exam Limitations: no limitations General appearance: alert, in no apparent distress Head exam: Present: normocephalic Eye exam: Present: normal appearance Neck exam: Present: normal inspection Respiratory exam: Present: normal lung sounds bilaterally Cardiovascular Exam: Present: regular rate, normal rhythm, normal heart sounds Expanded Peripheral pulses: 2+: Radial (R), Radial (L), Dorsalis Pedis (R), Dorsalis Pedis (L) GI/Abdominal exam: Present: soft. Absent: tenderness Extremities exam: Present: normal inspection. Absent: pedal edema, calf tenderness Neurological exam: Present: alert Psychiatric exam: Present: normal affect, normal mood Skin exam: Present: normal color Course Vital Signs 12/01/23 12/01/23 12/01/23 14:25 14:39 16:04 Temperature 98 F Pulse Rate 75 71 68 Respiratory 16 18 18 Rate Blood Pressure 165/104 153/83 122/80 O2 Sat by Pulse 98 98 Oximetry EKG Findings - EKG Results: EKG: interpreted by ERMD (Left axis. Anterior septal Q waves. LVH.), sinus rhythm, normal ST/T Medical Decision Making - Medical Decision Making Was pt. sent in by a medical professional or institution (, PA, EQUITY SALES ASSISTANT, urgent care, hospital, or longterm...) When possible be specific @ -No Did you speak to anyone other than the patient for history (EMS, parent, family, police, friend...)? What history was obtained from this source @ -No Did you review nursing and triage notes (agree or disagree)? Why? @ -I reviewed and agree with nursing and triage notes Were old charts reviewed (outside hosp., previous admission, EMS record, old EKG, old radiological studies, urgent care reports/EKG's, longterm records)? Report findings @ -Previous chest x-ray shows no acute Differential Diagnosis (chest pain, altered mental status, abdominal pain women, abdominal pain men, vaginal bleeding, weakness, fever, dyspnea, syncope, headache, dizziness, GI bleed, back pain, seizure, CVA, palpatations, mental health, musculoskeletal)? @ -Differential Chest Pain: Stable Angina, Unstable Angina, STEMI, NSTEMI Aortic Dissection, Pneumothorax, Musculoskeletal, Esophageal Spasm GERD, Cholecystitis, Pancreatitis, Zoster, this is not meant to be an all-inclusive list. EKG interpreted by me (3pts min.). @ -As above X-rays interpreted by me (1pt min.). @ -Chest x-ray shows no acute process CT interpreted by me (1pt min.). @ -None done U/S interpreted by me (1pt. min.). @ -None done What testing was considered but not performed or refused? (CT, X-rays, U/S, labs)? Why? @ -None What meds were considered but not given or refused? Why? @ -None Did you discuss the management of the patient with other professionals (professionals i.e. DrYevgeniy, PA, EQUITY SALES ASSISTANT, lab, RT, psych nurse, sr. social media & mobile manager, pilot teacher, teacher, sheriff officer, case sealer)? Give summary @ -Case was discussed with Dr. Mcnamara who will admit covering Dr. Albrecht Was smoking cessation discussed for >3mins.? @ -No Was critical care preformed (if so, how long)? @ -No Were there social determinants of health that impacted care today? How? (Homelessness, low income, unemployed, alcoholism, drug addiction, transportation, low edu. Level, literacy, decrease access to med. care, custodial, rehab)? @ -No Was there de-escalation of care discussed even if they declined (Discuss DNR or withdrawal of care, Hospice)? DNR status @ -No What co-morbidities impacted this encounter? (DM, HTN, Smoking, COPD, CAD, Cancer, CVA, ARF, Chemo, Hep., AIDS, mental health diagnosis, sleep apnea, morbid obesity)? @ -None Was patient admitted / discharged? Hospital course, mention meds given and route, prescriptions, significant lab abnormalities, going to OR and other pertinent info. @ -Patient reevaluated. Patient states symptoms resolved with nitro and return. Patient was given morphine. If patient has continued symptoms she may need nitro drip. Patient will be admitted with cardiac consult Undiagnosed new problem with uncertain prognosis? @ -No Drug Therapy requiring intensive monitoring for toxicity (Heparin, Nitro, Insulin, Cardizem)? @ -No Were any procedures done? @ -No Diagnosis/symptom? @ -Chest pain Acute, or Chronic, or Acute on Chronic? @ -Acute Uncomplicated (without systemic symptoms) or Complicated (systemic symptoms)? @ -Default Side effects of treatment? @ -No Exacerbation, Progression, or Severe Exacerbation? @ -No Poses a threat to life or bodily function? How? (Chest pain, [place], [place], pneumonia, PE, COPD, DKA, ARF, appy, cholecystitis, CVA, Diverticulitis, Homicidal, Suicidal, threat to staff... and all critical care pts) @ -No - Lab Data Result diagrams: 12/01/23 16:00 12/01/23 14:41 Lab Results 12/01/23 12/01/23 12/01/23 Range/Units 14:41 14:41 16:00 WBC 3.9 (3.8-10.6) k/uL RBC 4.60 (3.80-5.40) m/uL Hgb 13.2 (11.4-16.0) gm/dL Hct 39.1 (34.0-46.0) % MCV 84.9 (80.0-100.0) fL MCH 28.7 (25.0-35.0) pg MCHC 33.8 (31.0-37.0) g/dL RDW 14.4 (11.5-15.5) % Plt Count 106 L (150-450) k/uL MPV 9.4 Neutrophils % 58 % Lymphocytes % 28 % Monocytes % 7 % Eosinophils % 2 % Basophils % 1 % Neutrophils # 2.2 (1.3-7.7) k/uL Lymphocytes # 1.1 (1.0-4.8) k/uL Monocytes # 0.3 (0-1.0) k/uL Eosinophils # 0.1 (0-0.7) k/uL Basophils # 0.0 (0-0.2) k/uL PT (10.0-12.5) sec INR (<1.2) APTT (22.0-30.0) sec D-Dimer (<0.60) mg/L FEU Sodium 135 L (137-145) mmol/L Potassium (3.5-5.1) mmol/L Chloride 108 H (98-107) mmol/L Carbon Dioxide 17 L (22-30) mmol/L Anion Gap 10 mmol/L BUN 22 H (7-17) mg/dL Creatinine 0.89 (0.52-1.04) mg/dL Est GFR (CKD-EPI)AfAm 78 (>60 ml/min/1.73 sqM) Est GFR (CKD-EPI)NonAf 67 (>60 ml/min/1.73 sqM) Glucose 105 H (74-99) mg/dL Calcium 8.6 (8.4-10.2) mg/dL Magnesium 1.7 (1.6-2.3) mg/dL Total Bilirubin 1.2 (0.2-1.3) mg/dL AST 56 H (14-36) U/L ALT 49 H (4-34) U/L Alkaline Phosphatase 85 (38-126) U/L Troponin I <0.012 (0.000-0.034) ng/mL Total Protein 7.8 (6.3-8.2) g/dL Albumin 4.5 (3.5-5.0) g/dL 12/01/23 Range/Units 16:00 WBC (3.8-10.6) k/uL RBC (3.80-5.40) m/uL Hgb (11.4-16.0) gm/dL Hct (34.0-46.0) % MCV (80.0-100.0) fL MCH (25.0-35.0) pg MCHC (31.0-37.0) g/dL RDW (11.5-15.5) % Plt Count (150-450) k/uL MPV Neutrophils % % Lymphocytes % % Monocytes % % Eosinophils % % Basophils % % Neutrophils # (1.3-7.7) k/uL Lymphocytes # (1.0-4.8) k/uL Monocytes # (0-1.0) k/uL Eosinophils # (0-0.7) k/uL Basophils # (0-0.2) k/uL PT 10.2 (10.0-12.5) sec INR 0.9 (<1.2) APTT 24.2 (22.0-30.0) sec D-Dimer 0.52 (<0.60) mg/L FEU Sodium (137-145) mmol/L Potassium (3.5-5.1) mmol/L Chloride (98-107) mmol/L Carbon Dioxide (22-30) mmol/L Anion Gap mmol/L BUN (7-17) mg/dL Creatinine (0.52-1.04) mg/dL Est GFR (CKD-EPI)AfAm (>60 ml/min/1.73 sqM) Est GFR (CKD-EPI)NonAf (>60 ml/min/1.73 sqM) Glucose (74-99) mg/dL Calcium (8.4-10.2) mg/dL Magnesium (1.6-2.3) mg/dL Total Bilirubin (0.2-1.3) mg/dL AST (14-36) U/L ALT (4-34) U/L Alkaline Phosphatase (38-126) U/L Troponin I (0.000-0.034) ng/mL Total Protein (6.3-8.2) g/dL Albumin (3.5-5.0) g/dL Disposition Clinical Impression: Chest pain Disposition: ADMITTED IP TO THIS HOSP Is patient prescribed a controlled substance at d/c from ED?: No Referrals: Dena Albrecht DO [Primary Care Provider] - 1-2 days Time of Disposition: 16:41
[2023-12-01] MEDS: ASPIRIN 81 MG PO STA ×2 (14:46→14:47)
[2023-12-01] MEDS: NITROGLYCERIN SL TABS 0.4 MG TAB SUBLINGUAL STA ×3 (14:48→15:52)
[2023-12-01 15:28] LABS: ALT 49 U/L (4-34); African American GFR (CKD) 78 (>60 ml/min/1.73 sqM); Albumin 4.5 g/dL (3.5-5.0); Anion Gap 10 mmol/L; Blood Urea Nitrogen 22 mg/dL (7-17); Calcium 8.6 mg/dL (8.4-10.2); Carbon Dioxide 17 mmol/L (22-30); Chloride 108 mmol/L (98-107); Glucose 105 mg/dL (74-99); Non-African American GFR(CKD) 67 (>60 ml/min/1.73 sqM); Sodium 135 mmol/L (137-145); Total Bilirubin 1.2 mg/dL (0.2-1.3); Total Protein 7.8 g/dL (6.3-8.2)
[2023-12-01 15:29] LABS: AST 56 U/L (14-36); Magnesium 1.7 mg/dL (1.6-2.3)
[2023-12-01 15:30] LABS: Alkaline Phosphatase 85 U/L (38-126)
[2023-12-01 16:27] LABS: Basophils % (A) 1 %; Eosinophils # (A) 0.1 k/uL (0-0.7); Eosinophils % (A) 2 %; HCT 39.1 % (34.0-46.0); HGB 13.2 gm/dL (11.4-16.0); Lymphocytes # (A) 1.1 k/uL (1.0-4.8); Lymphocytes % (A) 28 %; MCH 28.7 pg (25.0-35.0); MCHC 33.8 g/dL (31.0-37.0); MCV 84.9 fL (80.0-100.0); Mean Platelet Volume 9.4; Monocytes # (A) 0.3 k/uL (0-1.0); Monocytes % (A) 7 %; Neutrophils # (A) 2.2 k/uL (1.3-7.7); Neutrophils % (A) 58 %; Platelet Count 106 k/uL (150-450); RDW 14.4 % (11.5-15.5); WBC 3.9 k/uL (3.8-10.6)
[2023-12-01] MEDS: MORPHINE SULFATE 4 MG/ML SYRINGE IVP STA (16:36)
[2023-12-01 16:37] LABS: INR 0.9 (<1.2); Partial Thromboplastin Time 24.2 sec (22.0-30.0); Prothrombin Time 10.2 sec (10.0-12.5)
[2023-12-01] MEDS ORDERED: NITROGLYCERIN SL TABS 0.4 MG TAB SUBLINGUAL PRN (16:41)
[2023-12-01] MEDS: NITROGLYCERIN OINT 1 INCH/GM PACKET TOPICAL SCH (16:51)
--- NOTE | 2023-12-01 17:13 | XR ---
EXAMINATION TYPE: XR chest 2V DATE OF EXAM: 12/01/2023 3:18 PM CLINICAL INDICATION:Female, 68 years old with history of Chest Pain; COMPARISON: Chest radiographs from 05/21/2021 TECHNIQUE: XR chest 2V Frontal and lateral views of the chest. FINDINGS: Lungs/Pleura: There is no evidence of pleural effusion, focal consolidation, or pneumothorax. Pulmonary vascularity: Unremarkable. Heart/mediastinum: Cardiomediastinal silhouette is unremarkable. Two lead cardiac conduction device o verlying the left hemithorax with lead tips projecting over the right ventricle and right atrium. A t hird conduction lead projects superiorly in the subcutaneous tissues. Musculoskeletal: No acute osseous pathology. Other findings: None IMPRESSION: No acute cardiopulmonary disease/process.
[2023-12-01] MEDS: MORPHINE SULFATE 4 MG/ML SYRINGE IV PRN (18:58)
[2023-12-01] MEDS: LOSARTAN 50 MG TAB PO SCH (20:41)
[2023-12-01] MEDS: oxyBUTYnin chloride 5 MG TAB PO SCH (20:42)
[2023-12-01] MEDS: metFORMIN 500 MG TAB PO SCH (20:42)
[2023-12-01] MEDS: carvediloL 12.5 MG TAB PO SCH (20:42)
[2023-12-01] MEDS: ACETAMINOPHEN TAB 500 MG TAB PO PRN (23:38)
[2023-12-02 08:50] LABS: Chol/HDL Ratio 3.15 Ratio; LDL Cholesterol,Calculated 86.8 mg/dL (0.0-131.0)
[2023-12-02] MEDS: DULoxetine HCL 60 MG CAPSULE.DR PO SCH (09:24)
[2023-12-02] MEDS: ASPIRIN 325 MG TAB PO SCH (09:24)
[2023-12-02] MEDS: ATORVASTATIN 10 MG TAB PO SCH (09:24)
[2023-12-02] MEDS: MELOXICAM 7.5 MG TAB PO SCH (09:24)
[2023-12-02] MEDS: RANOLAZINE 500 MG TAB.ER.12H PO SCH (09:24)
[2023-12-02] MEDS: ISOSORBIDE MONONITRATE ER 30 MG TAB.ER.24H PO SCH (09:24)
[2023-12-02] MEDS: ISOSORBIDE MONONITRATE 20 MG TAB PO SCH (09:36)
--- NOTE | 2023-12-02 11:03 | P.HPIM ---
History of Present Illness H&P Date: 12/02/23 Chief Complaint: Chest pain This is a 68-year-old female with past medical history significant for CAD s/p CABG 2016, PCI of the mid LAD 01/2021 and PCI to proximal RCA in 09/2015, T2DM, HTN, HLD, former tobacco use, ischemic cardiomyopathy status post AICD who presented to the ER with complaints of chest pain. Reports yesterday morning, she was awakened by chest pain/pressure midsternal that radiated to her jaw accompanied by sweats. Denies shortness of breath. Relieved by 1 nitroglycerin and then later in the day ,developed recurrent nonexertional chest pain while sitting. Reports similar symptoms as to prior cardiac events. States she is scheduled for outpatient stress test in December. Hypertensive on admission with blood pressure 165/104. Troponins negative x 3. EKG reported normal sinus rhythm, left ventricular hypertrophy, abnormal EKG-further review as per cardiology- consult in place. Chest x-ray reporting no acute cardiopulmonary disease/process .hematology, coagulation unremarkable , sodium 135, bicarb 17, BUN 22, creatinine 0.89, magnesium 1.7, AST 56, ALT 49. Lipid panel pending. currently denies chest pain, palpitations or shortness of breath. Review of Systems ROS Statement: Those systems with pertinent positive or pertinent negative responses have been documented in the HPI. ROS Other: All systems not noted in ROS Statement are negative. Past Medical History Past Medical History: Atrial Fibrillation, Coronary Artery Disease (CAD), Chest Pain / Angina, Heart Failure, COPD, Hyperlipidemia, Hypertension, Myocardial Infarction ([place]), Osteoarthritis (OA), Rheumatoid Arthritis (RA), Sleep Apnea/CPAP/BIPAP Additional Past Medical History / Comment(s): Heart Murmur, since CABG-L arm larger than right, Back & Cervical pain., Sawyer carpal tunnel syndrome ., C-Pap machine., Hx of colon polyps, Eczema. Last Myocardial Infarction Date:: 2020 History of Any Multi-Drug Resistant Organisms: None Reported Past Surgical History: AICD, Appendectomy, Section, Cholecystectomy, Coronary Bypass/CABG, Heart Catheterization, Heart Catheterization With Stent, Pacemaker Additional Past Surgical History / Comment(s): Multiple cardiac stents-, 2000 CABG 2 vessel, L carpal tunnel, D&C, colonoscopy. MEDTRONIC AICD Past Anesthesia/Blood Transfusion Reactions: Previous Problems w/ Anesthesia, Motion Sickness Additional Past Anesthesia/Blood Transfusion Reaction / Comment(s): WOKE UP DURING PROCEDURE Date of Last Stent Placement:: 2020 Type of Cardiac Device: Permanent Pacemaker, AICD Device Placement Date:: 05/2014 Past Psychological History: Anxiety, Depression Smoking Status: Former smoker Past Alcohol Use History: Rare Past Drug Use History: None Reported - Past Family History Mother Family Medical History: Hypertension, Myocardial Infarction ([place]) Additional Family Medical History / Comment(s): Mother of a [place] at the age of 63 yrs. Sister(s) Family Medical History: Cancer Additional Family Medical History / Comment(s): Breast Cancer Father Family Medical History: Coronary Artery Disease (CAD), Hypertension, Myocardial Infarction ([place]) Additional Family Medical History / Comment(s): Father of a NE at the age of 50 yrs. Medications and Allergies Home Medications Medication Instructions Recorded Confirmed Type RX: oxyBUTYnin chloride [Ditropan] 5 mg PO TID 12/25/13 12/01/23 History RX: Losartan Potassium 50 mg PO BID 04/01/16 12/01/23 History RX: ARIPiprazole [Abilify] 2 mg PO DAILY 10/24/19 12/01/23 History RX: DULoxetine HCL [Cymbalta] 60 mg PO DAILY 10/24/19 12/01/23 History RX: Nitroglycerin Sl Tabs 0.4 mg SUBLINGUAL Q5M PRN #30 tab 01/28/21 12/01/23 Rx [Nitrostat] RX: Rosuvastatin Calcium [Crestor] 5 mg PO DAILY 04/15/21 12/01/23 History RX: metFORMIN HCL [Glucophage] 500 mg PO BID 04/15/21 12/01/23 History RX: Aspirin 81 mg PO DAILY #0 tab 04/17/21 12/01/23 Rx RX: Acetaminophen [Tylenol Extra 1,000 mg PO Q6H PRN 12/01/23 12/01/23 History Strength] RX: Celecoxib [CeleBREX] 200 mg PO DAILY 12/01/23 12/01/23 History RX: carvediloL [Coreg] 12.5 mg PO BID 12/01/23 12/01/23 History RX: Isosorbide Mononitrate ER 30 mg PO DAILY #30 tab 12/03/23 Rx [Imdur] RX: Ranolazine [Ranexa] 500 mg PO Q12HR #60 tab 12/03/23 Rx Allergies Allergy/AdvReac Type Severity Reaction Status Date / Time clopidogrel bisulfate Allergy Rash/Hives Verified 12/01/23 15:27 [From Plavix] atorvastatin calcium AdvReac Severe Verified 12/01/23 15:27 [From Lipitor] muscle pain ezetimibe [From Zetia] AdvReac Unknown Verified 12/01/23 15:27 simvastatin [From Zocor] AdvReac Severe Verified 12/01/23 15:27 muscle pain Physical Exam Vitals: Vital Signs Temp Pulse Resp BP Pulse Ox 12/02/23 07:20 98.9 F 61 14 124/79 94 L 12/02/23 03:05 73 16 111/63 96 12/02/23 00:00 67 19 111/63 94 L 12/01/23 23:25 65 18 115/64 95 12/01/23 23:05 66 20 118/64 96 12/01/23 21:13 72 20 130/63 95 12/01/23 21:06 107 H 16 106/45 97 12/01/23 18:00 58 L 16 149/74 99 12/01/23 16:52 66 18 121/64 99 12/01/23 16:04 68 18 122/80 98 12/01/23 14:39 71 18 153/83 12/01/23 14:25 98 F 75 16 165/104 98 General: well nourished, well developed, NAD. Vitals reviewed Eyes: PERRL, EOMI, conjunctiva normal HENT: normocephalic, mucus membranes moist Neck: supple, no JVD Lungs: normal respiratory effort, no wheezes or rales CV: Regular rate and rhythm, no murmur. Peripheral pulses 2+ Abdomen: soft, nondistended, no organomegaly Lymph: no cervical or axillary LAD Skin: warm and dry. Neuro: A&Ox3, normal mood and affect Results CBC & Chem 7: 12/01/23 16:00 12/01/23 14:41 Labs: Abnormal Lab Results - Last 24 Hours (Table) 12/01/23 12/01/23 12/02/23 Range/Units 14:41 16:00 06:07 Plt Count 106 L (150-450) k/uL Sodium 135 L (137-145) mmol/L Chloride 108 H (98-107) mmol/L Carbon Dioxide 17 L (22-30) mmol/L BUN 22 H (7-17) mg/dL Glucose 105 H (74-99) mg/dL AST 56 H (14-36) U/L ALT 49 H (4-34) U/L Triglycerides 153.00 H (0.00-149.00) mg/dL Assessment and Plan Assessment: Acute chest pain, troponins negative x 3, cardiology following Hypertension CAD, history of CABG, stents Ischemic cardiomyopathy status post AICD History of ventricular tachycardia status post AICD Chronic systolic heart failure Hyperlipidemia Obstructive sleep apnea with CPAP Diabetes mellitus type 2, hemoglobin A1c pending Rheumatoid arthritis Morbid obesity, BMI 35 Plan: Continue on current medication regimen ,monitoring and symptomatic treatment. Cardiology consult in place, recommendations pending. NovoLog sliding scale, hemoglobin A1c ordered. PPI ordered for GI prophylaxis The impression and plan of care has been dictated as directed. : I performed a history and examination of this patient, discussed the same with the dictator. I agree with the dictator's note ,documented as a scribe. Any additional findings or plans will be noted.
[2023-12-02] MEDS ORDERED: DEXTROSE 50% SYRINGE 50 ML IVP PRN ×2 (11:06)
[2023-12-02 11:38] LABS: Glucose,Whole Blood 151 mg/dL (70-110)
[2023-12-02] MEDS: ARIPiprazole 2 MG TAB PO SCH (11:51)
[2023-12-02] MEDS: INSULIN ASPART (NovoLOG) 100 UNIT/ML VIAL SQ SCH (11:52)
[2023-12-02] MEDS: PANTOPRAZOLE 40 MG/10 ML VIAL IVP SCH (11:53)
--- NOTE | 2023-12-02 12:34 | P.CRDCN ---
History of Present Illness Consult date: 12/02/23 Consult reason: chest pain History of present illness: History of present illness: This is a 68-year-old female with past medical history of coronary artery disease with previous two-vessel CABG and multivessel angioplasty, ischemic cardiomyopathy, chronic systolic heart failure, ventricular tachycardia status post AICD, COPD, hypertension, hyperlipidemia, rheumatoid arthritis, obstructive sleep apnea with CPAP. We have been asked to evaluate the patient for chest pain. Patient states that she presented due to chest pain similar to that she had in the past. She recently was seen in the office by Dr. Doty and is scheduled for a stress test in the office on December. She had a last pacemaker check about 3 months ago and she had 18 months of battery at that time. She denies having any lightheadedness or dizziness. No shortness of breath. Patient is seen today in the emergency center waiting for bed on the observation unit. Patient was given option of undergoing stress test now or wait for the time it scheduled in December. Plan at this time is to wait and have stress test done in the office in December. EKG sinus rhythm with PACs Q waves in septal leads Chest x-ray: No acute process WBC 3.9, hemoglobin 13.2, platelet count 106. D-dimer 0.52. Sodium 135. Potassium not reported. Chloride 108, CO2 17, BUN 22 and creatinine 0.89. Troponin negative x 3. AST 56 and ALT 59. Triglycerides 153, cholesterol 172, LDL 86, HDL 54. Home cardiac medications: Aspirin 81 mg daily, Coreg 12.5 mg twice daily, Imdur 20 mg daily, losartan 50 mg twice daily, Nitrostat as needed, Crestor 5 mg at bedtime. Echocardiogram performed on 04/16/2021 reveals EF of 45 to 50%. Technically difficult study with suboptimal views. Lexiscan Cardiolite stress test performed in the office on 09/04/2020 was a negative stress test by EKG criteria. Abnormal nuclear scan showing prior [place] in the LAD distribution with ischemic cardiomyopathy without any ischemia. Review Of Systems: At the time of my exam: CONSTITUTIONAL: Denies fever or chills. HEENT: Denies blurred vision, vision changes, or eye pain. Denies hemoptysis CARDIOVASCULAR: Denies chest pain. Denies orthopnea. Denies PND. Denies palpitations RESPIRATORY: Denies shortness of breath. GASTROINTESTINAL: Denies abdominal pain. Denies nausea or vomiting. HEMATOLOGIC: Denies bleeding disorders. GENITOURINARY: Denies any blood in urine. SKIN: Denies pruitis. Denies rash. Physical examination: Gen: This is a 68-year-old female in no acute distress VS: reviewed, blood pressure 124/79, heart rate 61, pulse ox 94% on room air, afebrile. HEENT: Head is atraumatic, normocephalic. Pupils equal, round. Sclerae is anicteric. NECK: Supple. No JVD. LUNGS: Clear to auscultation. No wheezes or rhonchi. No intercostal retractions. HEART: Regular rate and rhythm. No murmur. ABDOMEN: Soft No tenderness. EXTREMITIES: No pedal edema. No calf tenderness. NEUROLOGICAL: Patient is awake, alert and oriented x3. Assessment: Chest pain, acute coronary syndrome ruled out History of coronary artery disease status post bypass surgery and multivessel angioplasty Ischemic cardiomyopathy Chronic systolic heart failure Ventricular tachycardia status post AICD Hypertension Hyperlipidemia Rheumatoid arthritis Obstructive sleep apnea with CPAP Plan: Resume patient's home cardiac medications Add Ranexa 500 mg twice daily and increase Imdur to 30 mg daily Monitor patient overnight for symptoms Obtain 2-D echocardiogram and Doppler study to assess cardiac structure and function If patient has no further chest pain by tomorrow, plan for discharge home. Patient will follow-up in the office for stress testing is scheduled. Thank you kindly for this consultation. Nurse practitioner note has been reviewed, I agree with documented findings and plan of care. Patient was seen and examined. Past Medical History Past Medical History: Atrial Fibrillation, Coronary Artery Disease (CAD), Chest Pain / Angina, Heart Failure, COPD, Hyperlipidemia, Hypertension, Myocardial Infarction (VA), Osteoarthritis (OA), Rheumatoid Arthritis (RA), Sleep Apnea/CPAP/BIPAP Additional Past Medical History / Comment(s): Heart Murmur, since CABG-L arm larger than right, Back & Cervical pain., Sawyer carpal tunnel syndrome ., C-Pap machine., Hx of colon polyps, Eczema. Last Myocardial Infarction Date:: 2020 History of Any Multi-Drug Resistant Organisms: None Reported Past Surgical History: AICD, Appendectomy, Section, Cholecystectomy, Coronary Bypass/CABG, Heart Catheterization, Heart Catheterization With Stent, Pacemaker Additional Past Surgical History / Comment(s): Multiple cardiac stents-, 2000 CABG 2 vessel, L carpal tunnel, D&C, colonoscopy. [employer] AICD Past Anesthesia/Blood Transfusion Reactions: Previous Problems w/ Anesthesia, Motion Sickness Additional Past Anesthesia/Blood Transfusion Reaction / Comment(s): WOKE UP DURING PROCEDURE Date of Last Stent Placement:: 2020 Type of Cardiac Device: Permanent Pacemaker, AICD Device Placement Date:: 05/2014 Past Psychological History: Anxiety, Depression Smoking Status: Former smoker Past Alcohol Use History: Rare Past Drug Use History: None Reported - Past Family History Mother Family Medical History: Hypertension, Myocardial Infarction (VA) Additional Family Medical History / Comment(s): Mother of a VA at the age of 63 yrs. Sister(s) Family Medical History: Cancer Additional Family Medical History / Comment(s): Breast Cancer Father Family Medical History: Coronary Artery Disease (CAD), Hypertension, Myocardial Infarction (VA) Additional Family Medical History / Comment(s): Father of a VA at the age of 50 yrs. Medications and Allergies Home Medications Medication Instructions Recorded Confirmed Type oxyBUTYnin chloride [Ditropan] 5 mg PO TID 12/25/13 12/01/23 History Losartan Potassium 50 mg PO BID 04/01/16 12/01/23 History ARIPiprazole [Abilify] 2 mg PO DAILY 10/24/19 12/01/23 History DULoxetine HCL [Cymbalta] 60 mg PO DAILY 10/24/19 12/01/23 History Nitroglycerin Sl Tabs [Nitrostat] 0.4 mg SUBLINGUAL Q5M PRN #30 tab 01/28/21 12/01/23 Rx Isosorbide Mononitrate 20 mg PO DAILY 04/15/21 12/01/23 History Rosuvastatin Calcium [Crestor] 5 mg PO DAILY 04/15/21 12/01/23 History metFORMIN HCL [Glucophage] 500 mg PO BID 04/15/21 12/01/23 History Aspirin 81 mg PO DAILY #0 tab 04/17/21 12/01/23 Rx Acetaminophen [Tylenol Extra 1,000 mg PO Q6H PRN 12/01/23 12/01/23 History Strength] Celecoxib [CeleBREX] 200 mg PO DAILY 12/01/23 12/01/23 History carvediloL [Coreg] 12.5 mg PO BID 12/01/23 12/01/23 History Allergies Allergy/AdvReac Type Severity Reaction Status Date / Time clopidogrel bisulfate Allergy Rash/Hives Verified 12/01/23 15:27 [From Plavix] atorvastatin calcium AdvReac Severe Verified 12/01/23 15:27 [From Lipitor] muscle pain ezetimibe [From Zetia] AdvReac Unknown Verified 12/01/23 15:27 simvastatin [From Zocor] AdvReac Severe Verified 12/01/23 15:27 muscle pain Physical Exam Vitals: Vital Signs Temp Pulse Resp BP Pulse Ox 12/02/23 07:20 98.9 F 61 14 124/79 94 L 12/02/23 03:05 73 16 111/63 96 12/02/23 00:00 67 19 111/63 94 L 12/01/23 23:25 65 18 115/64 95 12/01/23 23:05 66 20 118/64 96 12/01/23 21:13 72 20 130/63 95 12/01/23 21:06 107 H 16 106/45 97 12/01/23 18:00 58 L 16 149/74 99 12/01/23 16:52 66 18 121/64 99 12/01/23 16:04 68 18 122/80 98 12/01/23 14:39 71 18 153/83 12/01/23 14:25 98 F 75 16 165/104 98 Results 12/01/23 16:00 12/01/23 14:41 Cardiac Enzymes 12/01/23 12/01/23 12/01/23 Range/Units 14:41 14:41 17:23 AST 56 H (14-36) U/L Troponin I <0.012 <0.012 (0.000-0.034) ng/mL 12/01/23 Range/Units 20:33 AST (14-36) U/L Troponin I <0.012 (0.000-0.034) ng/mL Coagulation 12/01/23 Range/Units 16:00 PT 10.2 (10.0-12.5) sec APTT 24.2 (22.0-30.0) sec CBC 12/01/23 Range/Units 16:00 WBC 3.9 (3.8-10.6) k/uL RBC 4.60 (3.80-5.40) m/uL Hgb 13.2 (11.4-16.0) gm/dL Hct 39.1 (34.0-46.0) % Plt Count 106 L (150-450) k/uL Comprehensive Metabolic Panel 12/01/23 Range/Units 14:41 Sodium 135 L (137-145) mmol/L Potassium (3.5-5.1) mmol/L Chloride 108 H (98-107) mmol/L Carbon Dioxide 17 L (22-30) mmol/L BUN 22 H (7-17) mg/dL Creatinine 0.89 (0.52-1.04) mg/dL Glucose 105 H (74-99) mg/dL Calcium 8.6 (8.4-10.2) mg/dL AST 56 H (14-36) U/L ALT 49 H (4-34) U/L Alkaline Phosphatase 85 (38-126) U/L Total Protein 7.8 (6.3-8.2) g/dL Albumin 4.5 (3.5-5.0) g/dL Current Medications Generic Name Dose Route Start Last Admin Trade Name Freq PRN Reason Stop Dose Admin Acetaminophen 1,000 mg 12/01/23 16:43 12/01/23 23:38 Acetaminophen Tab 500 Mg Tab PO 1,000 mg Q6H PRN Administration Fever and/ or Pain Aripiprazole 2 mg 12/02/23 09:00 Aripiprazole 2 Mg Tab PO DAILY [facility] Aspirin 325 mg 12/02/23 09:00 Aspirin 325 Mg Tab PO DAILY [facility] Atorvastatin Calcium 10 mg 12/02/23 09:00 Atorvastatin 10 Mg Tab PO DAILY [facility] Carvedilol 12.5 mg 12/01/23 21:00 12/01/23 20:42 Carvedilol 12.5 Mg Tab PO 12.5 mg BID [facility] Administration Duloxetine HCl 60 mg 12/02/23 09:00 Duloxetine Hcl 60 Mg Capsule.Dr PO DAILY [facility] Isosorbide Mononitrate 20 mg 12/02/23 09:00 Isosorbide Mononitrate 20 Mg Tab PO DAILY [facility] Losartan Potassium 50 mg 12/01/23 21:00 12/01/23 20:41 Losartan 50 Mg Tab PO 50 mg BID [facility] Administration Meloxicam 15 mg 12/02/23 09:00 Meloxicam 7.5 Mg Tab PO DAILY [facility] Metformin HCl 500 mg 12/01/23 21:00 12/01/23 20:42 Metformin 500 Mg Tab PO 500 mg BID YVONNE Administration Morphine Sulfate 4 mg 12/01/23 16:41 12/01/23 23:18 Morphine Sulfate 4 Mg/Ml Syringe IV 4 mg Q5M PRN Administration Chest Pain Nitroglycerin 0.4 mg 12/01/23 16:41 Nitroglycerin Sl Tabs 0.4 Mg Tab SUBLINGUAL Q5M PRN Chest Pain Nitroglycerin 1 inch 12/01/23 18:00 12/02/23 07:23 Nitroglycerin Oint 1 Inch/Gm Packet TOPICAL 1 inch Q6HR YVONNE Administration Oxybutynin Chloride 5 mg 12/01/23 22:00 12/01/23 20:42 Oxybutynin Chloride 5 Mg Tab PO 5 mg TID YVONNE Administration 12/01/23 16:00 12/01/23 14:41
[2023-12-02 17:26] LABS: Glucose,Whole Blood 98 mg/dL (70-110)
[2023-12-03 00:48] LABS: Glucose,Whole Blood 113 mg/dL (70-110)
[2023-12-03 05:52] LABS: Glucose,Whole Blood 116 mg/dL (70-110)
[2023-12-03 08:57] VITALS: BP 108/72; PULSE 70; RESP 20; TEMP 97.4
--- NOTE | 2023-12-03 10:38 | P.PN ---
Subjective Progress Note Date: 12/03/23 Consult reason: chest pain History of present illness: This is a 68-year-old female with past medical history of coronary artery disease with previous two-vessel CABG and multivessel angioplasty, ischemic cardiomyopathy, chronic systolic heart failure, ventricular tachycardia status post AICD, COPD, hypertension, hyperlipidemia, rheumatoid arthritis, obstructive sleep apnea with CPAP. We have been asked to evaluate the patient for chest pain. Patient states that she presented due to chest pain similar to that she had in the past. She recently was seen in the office by Dr. Doty and is scheduled for a stress test in the office on December. She had a last pacemaker check about 3 months ago and she had 18 months of battery at that time. She denies having any lightheadedness or dizziness. No shortness of breath. Patient is seen today in the emergency center waiting for bed on the observation unit. Patient was given option of undergoing stress test now or wait for the time it scheduled in December. Plan at this time is to wait and have stress test done in the office in December. EKG sinus rhythm with PACs Q waves in septal leads Chest x-ray: No acute process WBC 3.9, hemoglobin 13.2, platelet count 106. D-dimer 0.52. Sodium 135. Potassium not reported. Chloride 108, CO2 17, BUN 22 and creatinine 0.89. Troponin negative x 3. AST 56 and ALT 59. Triglycerides 153, cholesterol 172, LDL 86, HDL 54. Home cardiac medications: Aspirin 81 mg daily, Coreg 12.5 mg twice daily, Imdur 20 mg daily, losartan 50 mg twice daily, Nitrostat as needed, Crestor 5 mg at bedtime. Echocardiogram performed on 04/16/2021 reveals EF of 45 to 50%. Technically difficult study with suboptimal views. Lexiscan Cardiolite stress test performed in the office on 09/04/2020 was a negative stress test by EKG criteria. Abnormal nuclear scan showing prior [place] in the LAD distribution with ischemic cardiomyopathy without any ischemia. 12/02 Today on follow-up on the observation unit. Yesterday Ranexa and Imdur were added to her medication regime. Patient states she feels a lot better. She denies chest pain and no shortness of breath. No lightheadedness, dizziness, headache. No LE edema. BP 108/72, HRZ 70s, PO 97% on room air. Physical examination: Gen: This is a 68-year-old female in no acute distress VS: reviewed HEENT: Head is atraumatic, normocephalic. Pupils equal, round. Sclerae is anicteric. NECK: Supple. No JVD. LUNGS: Clear to auscultation. No wheezes or rhonchi. No intercostal retractions. HEART: Regular rate and rhythm. No murmur. ABDOMEN: Soft No tenderness. EXTREMITIES: No pedal edema. No calf tenderness. NEUROLOGICAL: Patient is awake, alert and oriented x3. Assessment: Chest pain, acute coronary syndrome ruled out History of coronary artery disease status post bypass surgery and multivessel angioplasty Ischemic cardiomyopathy Chronic systolic heart failure Ventricular tachycardia status post AICD Hypertension Hyperlipidemia Rheumatoid arthritis Obstructive sleep apnea with CPAP Plan: Continue patient's home cardiac medications Continue Ranexa 500 mg twice daily and increase Imdur to 30 mg daily Patient is cleared for discharge home. Patient will follow-up in the office for stress testing as scheduled. Nurse practitioner note has been reviewed, I agree with documented findings and plan of care. Patient was seen and examined. Objective - Vital Signs Vital signs: Vital Signs Temp 97.4 F L 12/03/23 07:00 Pulse 70 12/03/23 07:00 Resp 20 12/03/23 07:00 BP 108/72 12/03/23 07:00 Pulse Ox 98 12/03/23 07:48 FiO2 Intake & Output 12/02/23 12/03/23 12/03/23 18:59 06:59 18:59 Intake Total 118 Balance 118 Weight 98.883 kg Intake: Oral 118 Other: Voiding Method Toilet Toilet # Voids 2 - Labs CBC & Chem 7: 12/01/23 16:00 12/01/23 14:41 Labs: Abnormal Lab Results - Last 24 Hours (Table) 12/02/23 12/03/23 12/03/23 Range/Units 11:36 00:46 05:51 POC Glucose (mg/dL) 151 H 113 H 116 H (70-110) mg/dL
--- NOTE | 2023-12-03 11:13 | P.DS ---
Providers Date of admission: 12/01/23 16:43 Expected date of discharge: 12/03/23 Attending physician: Romel Mcnamara MD Consults: 12/01/23 16:42 Consult Physician Urgent Consulting Provider: Faustino Chase Consult Reason/Comments: cp Do you want consulting provider notified?: Yes Primary care physician: Dena Albrecht Hospital Course: Final Diagnoses: Acute chest pain, troponins negative x 3, ACS ruled out Hypertension CAD, history of CABG, stents Ischemic cardiomyopathy status post AICD History of ventricular tachycardia status post AICD Chronic systolic heart failure Hyperlipidemia Obstructive sleep apnea with CPAP Diabetes mellitus type 2, hemoglobin A1c 6.0 Rheumatoid arthritis Morbid obesity, BMI 35 Hospital course:This is a 68-year-old female with past medical history significant for CAD s/p CABG 2016, PCI of the mid LAD 01/2021 and PCI to proximal RCA in 09/2015, T2DM, HTN, HLD, former tobacco use, ischemic cardiomyopathy status post AICD who presented to the ER with complaints of chest pain. Reports yesterday morning, she was awakened by chest pain/pressure midsternal that radiated to her jaw accompanied by sweats. Denies shortness of breath. Relieved by 1 nitroglycerin and then later in the day ,developed recurrent nonexertional chest pain while sitting. Reports similar symptoms as to prior cardiac events. States she is scheduled for outpatient stress test in December. Hypertensive on admission with blood pressure 165/104. Troponins negative x 3. EKG reported normal sinus rhythm, left ventricular hypertrophy, abnormal EKG-further review as per cardiology- consult in place. Chest x-ray reporting no acute cardiopulmonary disease/process .hematology, coagulation unremarkable , sodium 135, bicarb 17, BUN 22, creatinine 0.89, magnesium 1.7, AST 56, ALT 49. Lipid panel pending. currently denies chest pain, palpitations or shortness of breath. Evaluated by cardiology, Ranexa added to med regimen with Imdur dose increased, monitored overnight. Hemodynamically stable. No lower extremity edema. significant clinical improvement. Ambulating to and from bathroom, tolerating exertion well. Denies lightheadedness, dizziness or focal deficits. Denies any chest pain palpitations or shortness of breath. Denies nausea vomiting or abdominal pain. Denies pain. Patient has been cleared by cardiology for discharge and to proceed with outpatient stress test as previously scheduled. Patient will be discharged home today in a stable condition with guarded prognosis. The impression and plan of care has been dictated as directed. : I performed a history and examination of this patient, discussed the same with the dictator. I agree with the dictator's note ,documented as a scribe. Any additional findings or plans will be noted. Patient Condition at Discharge: Stable Plan - Discharge Summary Discharge Rx Participant: Yes New Discharge Prescriptions: New Ranolazine [Ranexa] 500 mg PO Q12HR #60 tab Isosorbide Mononitrate ER [Imdur] 30 mg PO DAILY #30 tab Continue oxyBUTYnin chloride [Ditropan] 5 mg PO TID Losartan Potassium 50 mg PO BID DULoxetine HCL [Cymbalta] 60 mg PO DAILY ARIPiprazole [Abilify] 2 mg PO DAILY Rosuvastatin Calcium [Crestor] 5 mg PO DAILY Aspirin 81 mg PO DAILY #0 tab Celecoxib [CeleBREX] 200 mg PO DAILY Acetaminophen [Tylenol Extra Strength] 1,000 mg PO Q6H PRN PRN Reason: Fever And/ Or Pain Nitroglycerin Sl Tabs [Nitrostat] 0.4 mg SUBLINGUAL Q5M PRN #30 tab PRN Reason: Chest Pain metFORMIN HCL [Glucophage] 500 mg PO BID carvediloL [Coreg] 12.5 mg PO BID Discontinued Isosorbide Mononitrate 20 mg PO DAILY Discharge Medication List oxyBUTYnin chloride [Ditropan] 5 mg PO TID 12/25/13 [History] Losartan Potassium 50 mg PO BID 04/01/16 [History] ARIPiprazole [Abilify] 2 mg PO DAILY 10/24/19 [History] DULoxetine HCL [Cymbalta] 60 mg PO DAILY 10/24/19 [History] Nitroglycerin Sl Tabs [Nitrostat] 0.4 mg SUBLINGUAL Q5M PRN #30 tab 01/28/21 [Rx] Rosuvastatin Calcium [Crestor] 5 mg PO DAILY 04/15/21 [History] metFORMIN HCL [Glucophage] 500 mg PO BID 04/15/21 [History] Aspirin 81 mg PO DAILY #0 tab 04/17/21 [Rx] Acetaminophen [Tylenol Extra Strength] 1,000 mg PO Q6H PRN 12/01/23 [History] Celecoxib [CeleBREX] 200 mg PO DAILY 12/01/23 [History] carvediloL [Coreg] 12.5 mg PO BID 12/01/23 [History] Isosorbide Mononitrate ER [Imdur] 30 mg PO DAILY #30 tab 12/03/23 [Rx] Ranolazine [Ranexa] 500 mg PO Q12HR #60 tab 12/03/23 [Rx] Follow up Appointment(s)/Referral(s): Dena Albrecht DO [Primary Care Provider] - 1-2 days (Please call for an appointment.) Patient Instructions/Handouts: Chest Pain (GEN) Activity/Diet/Wound Care/Special Instructions: Keep appointment for stress test in December 2023. Follow-up with cardiology as needed.
== END 2023-12-03 11:20 | disposition home or self-care (01) ==
LOC: EC 14:24 → 6NMEDSUR 16:43
PROVIDERS: ADMIT Family Medicine; ATTEND Family Medicine
DX: R07.89 Other chest pain (principal); I10 Essential (primary) hypertension; I25.10 Atherosclerotic heart disease of native coronary artery without angina pectoris; I25.5 Ischemic cardiomyopathy; I50.20 Unspecified systolic (congestive) heart failure; E78.5 Hyperlipidemia, unspecified; G47.33 Obstructive sleep apnea (adult) (pediatric); M06.9 Rheumatoid arthritis, unspecified; E66.01 Morbid (severe) obesity due to excess calories; Z95.810 Presence of automatic (implantable) cardiac defibrillator; Z95.5 Presence of coronary angioplasty implant and graft; Z95.1 Presence of aortocoronary bypass graft; Z87.19 Personal history of other diseases of the digestive system; Z82.49 Family history of ischemic heart disease and other diseases of the circulatory system; Z80.3 Family history of malignant neoplasm of breast; Z79.899 Other long term (current) drug therapy; Z79.84 Long term (current) use of oral hypoglycemic drugs; Z79.82 Long term (current) use of aspirin; Z79.1 Long term (current) use of non-steroidal anti-inflammatories (NSAID); Z68.35 Body mass index [BMI] 35.0-35.9, adult
CPT/HCPCS: 96376; 96375; 96365; 96366; 99285; 36415; 94760; 93005; 85379; 80061; 80053; 83735; 84484; 85025; 85610; 85730; 83036; 71046; G0378 ×3; J2270; C9113 ×2